=== PATIENT | female | born 1995 | race Caucasian/White ===

== ENCOUNTER 2025-03-08 05:29 | Inpatient (IN) | payer OTHER, SELFPAY ==
[2025-03-08] VITALS (30 sets, daily range): BP systolic 91–127; BP diastolic 50–108; BMI 19.4; BMI 17.2
--- NOTE | 2025-03-08 01:47 | ED.GENMED ---
History of Present Illness
<Sury Avalos PA-C - Last Filed: 03/08/25 06:06>
General
Chief Complaint: Skin Problem
Source: patient
Exam Limitations: none
Time Seen by Provider: 03/08/25 01:46
Nursing documentation reviewed up to this point in time: agreed with
History of Present Illness
History of Present Illness:
29-year-old female with past medical history of hepatitis C, anemia, presents emergency department today with bilateral lower extremity wounds. Patient reports that she uses xylazine daily and reports that she started having wounds in her hips
after she started injecting in her hips the past few months and she now notices increasing pain, yellow drainage, foul smell, and surrounding redness. She states that she has thigh pain with ambulation. She has had these wounds debrided in the
past at [facility] and reports that they are intermittently infected and she has required hospitalizations in the past patient reports that she has had bloodstream infections before. She used to follow with infectious disease doctor at [facility] but
she states that she does not currently follow with them anymore. She denies any fevers or chills. She also notes that she has had periodic episodes of lightheadedness this past week and near syncopal episodes. She denies any chest pain or
shortness of breath.
Review of Systems
<Sury Avalos PA-C - Last Filed: 03/08/25 06:06>
Review of Systems
All Other Systems: ROS reviewed and negative except as documented in HPI and ROS
Phy Exam
<Sury Avalos PA-C - Last Filed: 03/08/25 06:06>
Physical Exam
Physical Exam:
General: Patient is well appearing and in no acute distress; non-toxic
Skin: 5 by 10 cm ulcerated wounds noted to bilateral anterior thighs with purulent drainage and overlying necrotic tissue
Head: Normocephalic, atraumatic
Eyes: Sclera non-icteric. EOMs intact.
Cardiac: Regular rate and rhythm, no murmurs
Peripheral Vascular: No lower extremity swelling or edema, 2+ DP and PT pulses bilaterally
Pulm: Normal respiratory effort, no wheezes, rales, or rhonchi
Abdomen: No abdominal tenderness to palpation
Neuro: CN II-XII intact, no focal neurologic deficits.
Psychiatric: Appropriate mood and affect.
Course
<Sury Avalos PA-C - Last Filed: 03/08/25 06:06>
Orders/Labs/Results
Orders:
Orders
03/08/25 02:04
CR Hips LYNETTE w/wo Pel 3-4 Vw Urgent
Comment:
Reason For Exam: bilateral femoral wounds
Include a pelvis x-ray?: Yes
03/08/25 02:05
0.9% Sodium Chloride 1000 ml [Nss] 1,000 ml IV BOLUS
Ketorolac [Toradol] 15 mg IV NOW STA
03/08/25 03:09
C-Reactive Protein Urgent
Complete Blood Count/With Diff Urgent
Comprehensive Metabolic Panel Urgent
Lactic Acid Urgent
Sed Rate [Erythrocyte Sed Rate] Urgent
Blood Culture Q30M
TISH Source: Blood/Venous
Specimen Description:
03/08/25 03:38
Fentanyl, Urine Urgent
Urine Drug Abuse Screen Urgent
Date Specimen was Collected: 03/08/25
Time Specimen was Collected: 03:22
Wound Culture [Wound/Abscess/Other Culture] Urgent
TISH Source: Ulcer
Specimen Description:
Date Specimen was Collected: 03/08/25
Time Specimen was Collected: 03:36
03/08/25 03:42
* Blood Bank Products Urgent
Blood Bank Products: *Packed RBC Leuko(PRBC's)
Quantity: 1
Transfuse Today: Yes
Reason: Anemia
03/08/25 04:12
Piperacillin/Tazo 3.375 Gram [Zosyn] 3.375 gram in 50 ml IV NOW
03/08/25 04:13
Type+Screen Urgent
Blood Culture Q30M
TISH Source: Blood/Venous
Specimen Description:
03/08/25 04:40
Oxycodone Controlled Release [Oxycontin (Controlled Release)] 40 mg PO NOW STA
03/08/25 04:41
Buprenorphine HCl [Belbuca] 300 mcg BUCCAL BID ONE
03/08/25 04:56
Admit/Transfer Patient As Directed
Co-Sign Provider:
Level of Care: Inpatient admission
Assign to:: Medical/Surgical
Physician / Group: Gil
Diagnosis: Bilateral Thigh Wounds, IV Drug Abuse
Reason for Hospitalization: Bilateral Thigh Wounds, IV Drug Abuse
Expected length of stay greater than two midnights?: Yes
ELOS- Estimated Length of Stay in days: 4
I certify the patient meets the requirements for IP care: Yes
ABO2 Routine
BBK Wristband Number:
Associate notified that ABO2 has been ordered: RADHA
Date: 03/08/25
Time: 04:[address] Clerk ID: [id number]
03/08/25 04:57
PRN Pain Medication Management As Directed
May give lesser potent ordered pain med per pt: Yes
preference::
Protocol:: Medication orders for pain may be administered in a
manner that supports deferring to patient preference
when the pt is:
- Requesting an ordered lesser potent pain medication.
Least to most potent pain medications are defined
as: acetaminophen < NSAID < tramadol < opioids
(morphine, oxycodone, hydromorphone).
- Requesting a lesser dose of the same medication IF
ORDERED.
- Requesting a less intrusive route of administration
if both routes are prescribed by the provider (PO <
IV).
03/08/25 04:58
Code Status As Directed
Resuscitation Status: Full Code
03/08/25 05:20
Vancomycin [Vancocin] 1,500 mg 0.9% Sodium Chloride 500 ml [Nss] 500 ml IV NOW
Abnormal Lab Results
03/08/25 03/08/25 03/08/25
03:09 03:38 04:13
RBC 3.38 L 10^6/uL
(4.20-5.40)
Hgb 6.6 L* g/dL
(12.0-16.0)
Hct 21.6 L %
(37.0-47.0)
MCV 63.9 L fL
(81.0-99.0)
MCH 19.5 L pg
(27.0-31.0)
MCHC 30.6 L g/dL
(33.0-37.0)
RDW 16.9 H %
(11.5-14.5)
Absolute Lymphs (auto) 1.0 L 10^3/uL
(1.2-3.4)
Immature Gran % 0.6 H %
(0-0.5)
Lymphocytes % 16.1 L %
(20.5-51.1)
ESR 92 H mm/hour
(0-20)
Creatinine 0.5 L mg/dL
(0.6-1.0)
Glucose 153 H mg/dl
(70-99)
AST 12 L U/L
(14-36)
C-Reactive Protein 31.70 H mg/L
(0.0-10.00)
Albumin 3.1 L g/dl
(3.5-5.0)
Urine Opiates Screen Positive H
(Negative)
Urine Fentanyl Screen Positive H
(Negative)
Urine Cocaine Screen Positive H
(Negative)
Crossmatch IS Only See Detail
03/08/25 03:09
03/08/25 03:09
Vital Signs
Initial and Last Documented VS:
Initial Vital Signs
Temp Pulse Resp BP Pulse Ox
98.4 F 86 18 108/74 100
03/08/25 01:40 03/08/25 01:40 03/08/25 01:40 03/08/25 01:40 03/08/25 01:40
Last Documented Vital Signs
Temp Pulse Resp BP Pulse Ox
98.4 F 75 20 118/76 100
03/08/25 01:40 03/08/25 04:53 03/08/25 04:53 03/08/25 04:53 03/08/25 04:53
<Chuck Edmond MD - Last Filed: 03/08/25 05:07>
Orders/Labs/Results
Orders:
Orders
03/08/25 02:04
CR Hips LYNETTE w/wo Pel 3-4 Vw Urgent
Comment:
Reason For Exam: bilateral femoral wounds
Include a pelvis x-ray?: Yes
03/08/25 02:05
0.9% Sodium Chloride 1000 ml [Nss] 1,000 ml IV BOLUS
Ketorolac [Toradol] 15 mg IV NOW STA
03/08/25 03:09
C-Reactive Protein Urgent
Complete Blood Count/With Diff Urgent
Comprehensive Metabolic Panel Urgent
Lactic Acid Urgent
Sed Rate [Erythrocyte Sed Rate] Urgent
Blood Culture Q30M
TISH Source: Blood/Venous
Specimen Description:
03/08/25 03:38
Fentanyl, Urine Urgent
Urine Drug Abuse Screen Urgent
Date Specimen was Collected: 03/08/25
Time Specimen was Collected: 03:22
Wound Culture [Wound/Abscess/Other Culture] Urgent
TISH Source: Ulcer
Specimen Description:
Date Specimen was Collected: 03/08/25
Time Specimen was Collected: 03:36
03/08/25 03:42
* Blood Bank Products Urgent
Blood Bank Products: *Packed RBC Leuko(PRBC's)
Quantity: 1
Transfuse Today: Yes
Reason: Anemia
03/08/25 04:12
Piperacillin/Tazo 3.375 Gram [Zosyn] 3.375 gram in 50 ml IV NOW
03/08/25 04:13
Type+Screen Urgent
Blood Culture Q30M
TISH Source: Blood/Venous
Specimen Description:
03/08/25 04:40
Oxycodone Controlled Release [Oxycontin (Controlled Release)] 40 mg PO NOW STA
03/08/25 04:41
Buprenorphine HCl [Belbuca] 300 mcg BUCCAL BID ONE
03/08/25 04:56
Admit/Transfer Patient As Directed
Co-Sign Provider:
Level of Care: Inpatient admission
Assign to:: Medical/Surgical
Physician / Group: Gil
Diagnosis: Bilateral Thigh Wounds, IV Drug Abuse
Reason for Hospitalization: Bilateral Thigh Wounds, IV Drug Abuse
Expected length of stay greater than two midnights?: Yes
ELOS- Estimated Length of Stay in days: 4
I certify the patient meets the requirements for IP care: Yes
ABO2 Routine
BBK Wristband Number:
Associate notified that ABO2 has been ordered: RADHA
Date: 03/08/25
Time: 04:[address] Clerk ID: [id number]
03/08/25 04:57
PRN Pain Medication Management As Directed
May give lesser potent ordered pain med per pt: Yes
preference::
Protocol:: Medication orders for pain may be administered in a
manner that supports deferring to patient preference
when the pt is:
- Requesting an ordered lesser potent pain medication.
Least to most potent pain medications are defined
as: acetaminophen < NSAID < tramadol < opioids
(morphine, oxycodone, hydromorphone).
- Requesting a lesser dose of the same medication IF
ORDERED.
- Requesting a less intrusive route of administration
if both routes are prescribed by the provider (PO <
IV).
03/08/25 04:58
Code Status As Directed
Resuscitation Status: Full Code
03/08/25 05:20
Vancomycin [Vancocin] 1,500 mg 0.9% Sodium Chloride 500 ml [Nss] 500 ml IV NOW
Abnormal Lab Results
03/08/25 03/08/25 03/08/25
03:09 03:38 04:13
RBC 3.38 L 10^6/uL
(4.20-5.40)
Hgb 6.6 L* g/dL
(12.0-16.0)
Hct 21.6 L %
(37.0-47.0)
MCV 63.9 L fL
(81.0-99.0)
MCH 19.5 L pg
(27.0-31.0)
MCHC 30.6 L g/dL
(33.0-37.0)
RDW 16.9 H %
(11.5-14.5)
Absolute Lymphs (auto) 1.0 L 10^3/uL
(1.2-3.4)
Immature Gran % 0.6 H %
(0-0.5)
Lymphocytes % 16.1 L %
(20.5-51.1)
ESR 92 H mm/hour
(0-20)
Creatinine 0.5 L mg/dL
(0.6-1.0)
Glucose 153 H mg/dl
(70-99)
AST 12 L U/L
(14-36)
C-Reactive Protein 31.70 H mg/L
(0.0-10.00)
Albumin 3.1 L g/dl
(3.5-5.0)
Urine Opiates Screen Positive H
(Negative)
Urine Fentanyl Screen Positive H
(Negative)
Urine Cocaine Screen Positive H
(Negative)
Crossmatch IS Only See Detail
03/08/25 03:09
03/08/25 03:09
Vital Signs
Initial and Last Documented VS:
Initial Vital Signs
Temp Pulse Resp BP Pulse Ox
98.4 F 86 18 108/74 100
03/08/25 01:40 03/08/25 01:40 03/08/25 01:40 03/08/25 01:40 03/08/25 01:40
Last Documented Vital Signs
Temp Pulse Resp BP Pulse Ox
98.4 F 75 20 118/76 100
03/08/25 01:40 03/08/25 04:53 03/08/25 04:53 03/08/25 04:53 03/08/25 04:53
<Sury Avalos PA-C - Last Filed: 03/08/25 06:06>
MDM/Problems Addressed
Differential Diagnosis Includes:
ddx include infected ulcer, osteomyelitis, abrasion/laceration
MDM/Problems Addressed:
29-year-old female with past medical history of hepatitis C, anemia, presents emergency department today with bilateral lower extremity wounds. Patient reports that she uses xylazine daily and reports that she started having wounds in her hips
after she started injecting in her hips the past few months and she now notices increasing pain, yellow drainage, foul smell, and surrounding redness. She uses fentanyl as well. On exam, she has very large ulcerated wounds with active purulent
drainage no fever. She has acute anemia hemoglobin 6.6 will initiate transfusion, patient has history of transfusions for anemia in the past, will admit for IV antibiotics, may require surgical debridement, Vanco and Zosyn initiated
<EDER Camarena Last Filed: 03/08/25 06:06>
*Pulse Oximetry
Patient hypoxic: no
*Critical Care Note
Total Time (30-74mins, 75-104mins- exclusive of procedures): Not Applicable
Data Reviewed
Review of Other/Old Records Reveals: Records
<Sury Avalos PA-C - Last Filed: 03/08/25 06:06>
Update Note
Update Note:
Update patient is hemoglobin 6.6, discussed findings with patient, she does have a history of anemia and has required blood transfusions in the past, patient denies any bleeding, she is unsure of her baseline hemoglobin
ED Attending Note
<Sury Avalos PA-C - Last Filed: 03/08/25 06:06>
-
Portions of this chart may have been created with voice recognition software.� Occasional wrong word or��sound alike� substitutions may have occurred due to the inherent limitations of voice recognition software.
<Chuck Edmond MD - Last Filed: 03/08/25 05:07>
ED Attending Note
Patient seen and examined by attending physician: Yes
ED Attending Note:
Patient with history of IVDA and infected skin ulcer requiring multiple debridement secondary to use of xylazine, presents to ED secondary to worsening wound over bilateral thigh, which has been ongoing for over 1 year. Denies fever or chills.
Denies nausea or vomiting. Denies loss of appetite. Patient has had previous wound in her arms as well as lower legs, requiring debridement.
Physical Exam
General: mild distress, not acutely ill. afebrile
Head: nc/at. eomi
Neck: supple. no meningeal signs
Abdomen: normal bowel sounds. not tender.
Neuro: alert and oriented x 3. no focal neurological deficits
Skin: an approx 5 cm x 10 cm open ulcer noted over b/l anterior thigh with minimal foul smelling drainage, without surrounding erythema
Psychiatric: well kept. interactive and cooperative
Extremities: no edema. no calf tenderness.
History and exam concerning for significant soft tissue injury, secondary to chronic xylazine use, with great concern for superimposed infection. Patient will be admitted for IV antibiotics, but may require surgical wound debridement. In addition,
patient found to be anemic. In light of recent episode of dizziness, patient will be given blood transfusion.
Transfusion consent on the chart
Discharge Plan
Departure
Patient Disposition: Admit
Date of Disposition: 03/08/25
Time of Disposition: 04:21
Admit to: Med/Surg
Presentation/result/management discussed w/ accepting MD/DO: Hospitalist
Patient with high blood pressure during this ER visit?: No
Condition: Fair
Discharge Problem:
Infected ulcer of skin, Intravenous drug abuse
Interventions
Interventions:
*Risk Screen - Suicide Last Done: 03/08/25 01:40
*General Assessment Last Done: 03/08/25 02:56
*Neglect/Abuse Screening Last Done: 03/08/25 01:40
*ED- Fall Risk Assessment Last Done: 03/08/25 02:56
*ED COVID-19 Vaccine History Last Done: 03/08/25 02:56
ED-Musculoskeletal Assessment Last Done: 03/08/25 02:59
ED-Skin Assessment Last Done: 03/08/25 03:16
[2025-03-08 03:30] LABS: % Basophils 0.6 % (0-2); % Eosinophils 2.8 % (0-6); % Immature Granulocytes 0.6 % (0-0.5); % Lymphocytes 16.1 % (20.5-51.1); % Monocytes 7.5 % (1.7-9.3); % Neutrophils 72.4 % (42.2-75.2); Absolute Eosinophils 0.2 10^3/uL (0-0.7); Absolute Monocytes 0.5 10^3/uL (0.1-0.6); Absolute Neutrophils 4.6 10^3/uL (1.4-6.5); Hematocrit 21.6 % (37.0-47.0); Hemoglobin 6.6 g/dL (12.0-16.0); Mean Corp Hgb Conc. 30.6 g/dL (33.0-37.0); Mean Corpuscular Hgb 19.5 pg (27.0-31.0); Mean Corpuscular Volume 63.9 fL (81.0-99.0); Mean Platelet Volume 9.3 fL (7.4-10.4); Nucleated Red Blood Cells % 0 %; Platelet Count 344 10^3/uL (130-400); Red Blood Cell Count 3.38 10^6/uL (4.20-5.40); Red Cell Dist. Width 16.9 % (11.5-14.5); White Blood Cell Count 6.4 10^3/uL (4.8-10.8)
[2025-03-08 03:34] LABS: Lactic Acid 1.2 mmol/L (0.7-2.0)
[2025-03-08 03:39] LABS: Erythrocyte Sed Rate 92 mm/hour (0-20)
[2025-03-08 04:04] LABS: ALT (SGPT) < 10 U/L (0-35); AST (SGOT) 12 U/L (14-36); Albumin 3.1 g/dl (3.5-5.0); Alkaline Phosphatase 91 U/L (38-126); Blood Urea Nitrogen 10 mg/dl (7-17); Calcium 8.4 mg/dl (8.4-10.2); Carbon Dioxide 29 mmol/L (22-30); Chloride 101 mmol/L (98-107); Estimated Creatinine Clearance 113 ml/min; Glucose 153 mg/dl (70-99); Potassium 4.4 mmol/L (3.5-5.1); Sodium 136 mmol/L (135-145); Total Bilirubin 0.4 mg/dl (0.2-1.3); Total Protein 7.1 g/dl (6.3-8.2); eGFR > 60.00
[2025-03-08] MEDS: NSS 1000 IV (04:31)
[2025-03-08 04:45] LABS: Amphetamines Negative (Negative); Barbiturates Negative (Negative); Benzodiazepines Negative (Negative); Buprenorphine Negative (Negative); Cocaine Positive (Negative); Opiates Positive (Negative)
[2025-03-08 04:46] LABS: Marijuana Negative (Negative); Methadone Negative (Negative); Methamphetamines Negative (Negative); Phencyclidine Negative (Negative); Tricyclic Antidepressants Negative (Negative)
[2025-03-08] MEDS: ZOSYN 50 IV ×3 (04:50→20:08)
[2025-03-08] MEDS: OXYCONTIN (CONTROLLED RELEASE) 40 MG PO ×2 (04:51→17:32)
[2025-03-08 05:02] LABS: Fentanyl, Urine Positive (Negative)
--- NOTE | 2025-03-08 05:04 | HPS.HSE ---
Family Physician
-
Family Physician: NOT KNOW UNKNOWN - PT DOES
Chief Complaint
-
Bilateral Thigh / Groin Wounds
History of Present Illness
Patient is a 29y F with PMH significant for IVDA, chronic wounds and chronic anemia who presents to ED complaining of increased drainage / pain in bilateral thigh wounds. Patient reports long history of skin wounds related to xylazine (fentanyl)
use. She has previously been seen at [facility], [facility] and [facility]. She underwent I&D of wounds to the bilateral elbows and the L lower leg at [facility]. These wounds have healed / are healing nicely. Patient developed wounds to the proximal thigh / groin areas at
the same time. These areas were not debrided. She has been hospitalized multiple times for IV abx and wound care. She is typically lost to follow-up after hospitalization and does not have ongoing structured wound care.
She was last hospitalized for her wounds in January at [facility].
Patient presents today complaining of increased pain and increased bleeding / purulent drainage from the thigh wounds.
She also notes occasional lightheadedness and fatigue.
She has not noted any significant bleeding other than from the thigh wounds. Normal menses cycle without heavy or prolonged menses. No blood in stool or urine appreciated.
Patient reports diagnosis of iron deficiency anemia - but she is not certain why.
She has required transfusions multiple times in the past.
Patient notes that she continues to use IV drugs on a daily basis. She last used 5/4 in the afternoon.
At the time of my examination, patient is resting comfortably and is in no acute distress.
Medical History
Past Medical History
Past Medical History: Reports Other
Additional Past Medical History:
Multiple Wounds related to IV drug use
Hepatitis C (no prior treatment)
Iron Deficiency Anemia
Past Surgical History: Reports Other
Additional Past Surgical History:
Wound Debridement
T&A
Social History
Tobacco: Smoker (Current every day smoker. / ppd.)
Alcohol: Occasional
Drug: Other (IV fentanyl - 1 bundle daily. IV cocaine - 5 bags daily. Last use 03/07 afternoon.)
Family History
Family History: Other (Father: Esophageal Cancer MGM: Breast Cancer)
Allergies / Home Medications
Allergies reflects when Allergies were last updated in [facility].
Home Medications with original date entered in [facility]
Allergy/Medication List:
Allergies
Allergy/AdvReac Type Severity Reaction Status Date / Time
No Known Allergies Allergy Verified 03/08/25 01:42
Home Medications
No Meds [No Current Medications] 03/08/25
Review of Systems
-
History Source: Patient
A 12 point ROS was completed and negative except as noted: Yes
Constitutional: Reports Fatigue; Denies Fever or Chills
EENT: Denies Sore Throat
Respiratory: Denies Cough or Trouble Breathing
Cardiac: Denies Chest Pain or Palpitations
Abdomen/GI: Denies Abdominal Pain, Nausea, Vomiting or Diarrhea
: Denies Dysuria or Frequency
Musculoskeletal: Denies Joint Pain or Edema
Skin: Reports Other (bilateral thigh/ groin wounds - bleeding / discharge)
Psych: Denies Depression or Anxiety
Physical Exam
Vital Signs
Vital Signs
Temp Pulse Resp BP Pulse Ox
98.4 F 75 20 118/76 100
03/08/25 01:40 03/08/25 04:53 03/08/25 04:53 03/08/25 04:53 03/08/25 04:53
Physical Exam
General: Other (29y F chronically ill-appearing.)
HEENT: Other (Dry MM. Poor dentition.)
Respiratory: Clear; No Wheezes, Rales or Rhonchi
Cardiac: S1/S2 and Regular Rhythm; No Murmur
GI: Soft, Non Tender, Non Distended and Normal Bowel Sounds
Musculoskeletal: No Clubbing, No Cyanosis and No Edema
Skin: Other (L > R anterior thigh wounds / ulcerations with exposed fat, spotting / bleeding and areas of purulence. Mild surrounding erythema. Superficial ulcer over the lateral aspect of the L lower leg. Scarring L lower leg and bilateral
elbows.)
Neuro: AO x 3
Laboratory Results
-
03/08/25 03:09
03/08/25 03:09
Laboratory Results
Lactic Acid 1.2 mmol/L (0.7-2.0) 03/08/25 03:09
Total Bilirubin 0.4 mg/dl (0.2-1.3) 03/08/25 03:09
AST 12 U/L (14-36) L 03/08/25 03:09
ALT < 10 U/L (0-35) 03/08/25 03:09
Alkaline Phosphatase 91 U/L (38-126) 03/08/25 03:09
Impression/Plan
-
A/P: Patient is a 29y F with PMH significant for IVDA, Hep C and anemia who presents to ED complaining of worsening bilateral thigh wounds.
Non-Healing Wounds Bilateral Anterior Thighs / Groin
Infected Wounds / Cellulitis
- Admit for further evaluation and treatment.
- Initial wounds secondary to xylazine injection. No prior I&D of thigh wounds.
- IV abx.
- Surgery / Wound Care evaluations for local care and possible debridement.
- Follow for clinical improvement.
Severe Microcytic Anemia
- Hgb = 6.6 with no prior for comparison.
- Markedly microcytic with MCV = 63.9.
- Patient denies any significant blood loss.
- Receiving PRBCs in the ED. Follow for changes in H&H.
- Check iron studies and consider IV replacement of iron stores if indicated.
IVDA
Opioid Use Disorder
Polysubstance Use Disorder
- Daily IV use of both fentanyl and cocaine is ongoing. Last used the afternoon prior to admission.
- Opioid withdrawal microdosing protocol ordered.
- Supportive care.
- Follow for active symptoms of withdrawal.
- Patient would benefit from inpatient rehab program if she is amenable.
Hep C
- No prior treatment of Hep C positivity.
- Update HIV status.
- Patient has been instructed to follow-up as an outpatient for Hep C treatment - but has yet to do so.
DVT Prophylaxis: SCDs
Code Status: Full
[2025-03-08] MEDS: BELBUCA 300 MCG BUCCAL ×4 (05:07→22:31)
[2025-03-08] MEDS: VANCOCIN 530 MG IV ×2 (05:28→05:30)
--- NOTE | 2025-03-08 07:55 | W.PN.HOSP.TC ---
Addendum entered and electronically signed by Yessy Hernandez MD 03/08/25 16:00:
I saw and evaluated the patient. I reviewed the resident�s note and agree with findings and plan as documented in the resident�s note except for changes in my documentation
29-year-old female with IV drug abuse presented with increased drainage of bilateral thigh wounds she was previously seen at [facility] in [place] and underwent IND of bilateral elbows, bilateral lower leg wounds. Last hospitalized
at [facility] in January has a history of iron deficiency anemia with history of blood transfusions in the past. Last use of drugs was on 03/07/2025 afternoon.
Nonhealing wounds with some necrosis and sloughing on both thighs
Scars on both forearms as well as left leg-healing
Cardiovascular system S1-S2 appreciated, no murmur
Abdomen soft and nontender
# Nonhealing bilateral anterior thigh wounds
Infection
Initial wounds secondary to xylazine injection
Surgery and wound care evaluation
Blood cultures pending
Wound culture pending
Continue IV antibiotics
ID evaluation
# Severe microcytic anemia
Received PRBCs in the ER
Check iron studies
Needs GI and SOCIAL SECRETARY workup as outpatient
# IV drug abuse
Polysubstance abuse disorder and opiate use disorder
Urine drug screen positive for opiates, fentanyl, cocaine
Uses both fentanyl and cocaine last use was on 03/07/2025
Opiate withdrawal-micro dosing protocol, as needed Zanaflex, clonidine, Subutex, Atarax as needed reviewed, Ativan as needed, oxycodone as needed with OxyContin controlled-release
Warm handoff consult
# Hepatitis C-instructed to seek outpatient treatment
Check HIV status
# Active smoker-cessation counseling
# DVT prophylaxis-SCDs
# Full code
Detailed counseling about stopping drugs. Patient is willing for B cares consult
Part of this note was created using voice recognition system. Occasional wrong word or��sound alike� substitutions may have inadvertently occurred due to the inherent limitations of voice recognition software. If noted kindly bring it to my
attention for correction.
Original Note:
Today's Communication/Plan
-
- COWS protocol
- microdosing protocol
Assessment / Plan
Assessment / Plan
Assessment:
29yo F [facility] IVDU, hep C, iron deficiency anemia presented to [facility] ED w b/l LE wounds. Uses xylazine daily, last used 5/ in the afternoon. Wounds on hips after injecting over hips with increasing pain, yellow drainage, foul smell and surrounding
redness.
Plan:
Non-healing wounds b/l ant thighs/groin
Infected wounds/cellulitis secondary to xylazine injections
- appreciate surgery input for possible debridement and woundcare input for f/u
- IV abx
- follow for improvement
Severe microcytic iron deficiency anemia
- transfused 1 unit pRBCs
- pt denies bleeding
- iron panel - low ferritin, low serum iron, low %sat, normal TIBC, RDW high
- transfuse as needed to keep Hb>7
IVDA
Opioid Use Disorder
Polysubstance Use Disorder
Active smoker
- uds positive for fentanyl, opioids, cocaine, xylazine
- reports daily use of fentanyl and cocaine. Last used / afternoon
- COWS, microdosing protocol
- nicotine patch
- would benefit from inpatient rehab
Hepatitis C
- No prior treatment
- HIV status pending
- will need to f/u outpt
Diet: regular
DVT Prophylaxis: SCDs
Code Status: Full
Anticipated Discharge: > 48 hours
Subjective/Interval History
-
Date of Service: March 08, 2025
29yo F [facility] IVDU, hep C, iron deficiency anemia presented to [facility] ED w b/l LE wounds. Uses xylazine daily, last used 5/ in the afternoon. Wounds on hips after injecting over hips with increasing pain, yellow drainage, foul smell and surrounding
redness. Wounds have been debrided in the past at [facility], pt reports they are intermittently infected, often requiring hospitalizations. Hx bacteremia. Used to follow w ID at [facility], but not currently following. +lightheadedness, +presyncopal episodes,
-CP, -dyspnea. Transfused 1u pRBCs overnight. Starting to feel chills and myalgias.
Objective Data
-
Labs:
Laboratory Results
03/08/25
03:09
WBC 6.4
Hgb 6.6 L*
Hct 21.6 L
Plt Count 344
Sodium 136
Potassium 4.4
Chloride 101
Carbon Dioxide 29
BUN 10
Creatinine 0.5 L
Glucose 153 H
Calcium 8.4
Total Bilirubin 0.4
AST 12 L
ALT < 10
Alkaline Phosphatase 91
Vital Signs:
Vital Signs
Temp Pulse Resp BP Pulse Ox
98.4 F 64 16 108/65 99
03/08/25 01:40 03/08/25 07:23 03/08/25 07:23 03/08/25 07:23 03/08/25 07:23
Review of Systems
-
History Source: Patient
Constitutional: Reports Chills
Respiratory: Reports No Symptoms
Cardiac: Reports No Symptoms
Abdomen/GI: Reports No Symptoms
Genitourinary: Reports No Symptoms
Musculoskeletal: Reports Myalgias
Skin: Reports Sores
Neuro: Reports No Symptoms
Hematologic / Lymphatic: Reports No Symptoms
Physical Exam
-
General: Appears in Distress, Chills, Conversant and Cachectic
HEENT: Normocephalic, Atraumatic, Moist Mucous Membranes and Anicteric
Respiratory: Clear to Auscultation
Cardiac: Regular Rhythm and S1/S2
GI: Soft, Nontender, Nondistended and Normal Bowel Sounds
Musculoskeletal: No Clubbing, No Cyanosis and No Edema
Skin: Warm, Dry, Ulcers and Jaundice
Neuro: AO x 3 and No Motor Deficits
Psych: Calm and Intact Judgement/Insight
[2025-03-08] MEDS: ROXICODONE 20 MG PO ×3 (10:50→20:23)
--- NOTE | 2025-03-08 11:19 | PHA.VAN.IN ---
Assessment
- Assessment
Renal Function: Appears similar to baseline
Concomitant Antimicrobials: piperacillin/tazobactam
AUC Dosing Plan
- Dosing Variables
Dosing Weight (kg): 57 (IBW since BMI < 20)
Dosing CrCl (ml/min): 113 - 122
Vd coefficient (L/kg): 0.7
Utilized CrCl range calculated with TBW & IBW
- Empiric Dosing
Initial / Loading Dose: 1500mg - 5/5 05:30
Maintenance Regimen: Vanc 1000mg Q12H
Estimated AUC (mcg*h/mL): 499 - 536
Estimated Peak (mcg*h/mL): 34.9 - 36.2
Estimated Trough (mcg/ml): 10.9 - 12.3
Estimated Half Life (H): 6.6 - 7.1
- Monitoring
No levels ordered at this time: consider levels in next few days
Pharmacokinetics Vancomycin I
- -
Patient Age: 29
Patient Sex: Female
Vancomycin Day #: 1
Indication: Skin And Soft Tissue
Requesting Provider: Dr. Cordero
Pertinent Antimicrobial Allergies:
NKDA
Height / Weight:
Height 5 ft 5 in
Actual Weight 52.8 kg
IBW in k
Pertinent Past Medical History: BMI ~19.4, IV CRISTA
- Vital Signs / Lab Results
Temp Pulse Resp BP Pulse Ox
97.6 F 72 16 110/72 97
03/08/25 10:41 03/08/25 10:41 03/08/25 10:41 03/08/25 10:41 03/08/25 10:41
Lab Results - Hematology
03/08/25
03:09
WBC 6.4
Lab Results - Chemistry
03/08/25
03:09
BUN 10
Creatinine 0.5 L
Estimated Creat Clear 113
Albumin 3.1 L
03/08/25
03:09
Lactic Acid 1.2
Microbiology Results
03/08/25 03:38 Gram Stain - Preliminary
Ulcer
--- NOTE | 2025-03-08 11:33 | CON.GS ---
Addendum entered and electronically signed by Brad Zhang MD 03/08/25 16:11:
I saw and examined the patient independently.
The resident's documentation was reviewed and I agree with the note, assessment and plan except where noted below.
Comment: This is a 29-year-old female with a history significant for IV drug abuse, hepatitis C, chronic wounds from subcutaneous Tranq/xylazine injections in her upper thighs with chronic bilateral wounds here for pain in said wounds and reported
intermittent purulent discharge. She states that she last used/injected into these wounds yesterday. The patient denies Fever, Chest Pain, Shortness Of Breath, Nausea, Vomiting or altered mental status from baseline.
No abscess or necrotic tissue noted, no significant purulent discharge noted either however given reported history recommend starting with quarter strength Dakin's wet to dry twice daily
IV antibiotics per primary.
Wound care consults for management.
No acute surgical intervention warranted at this time, happy to follow-up with her as an outpatient.
Surgery will sign off, please call with any questions or concerns.
Original Note:
Consultation
-
Date/Time Consultation Requested: 03/08/2025 9:49 AM
Date/Time Consultation Performed: 03/08/2025 11:30 AM
Requesting Provider: Nestor Swift
Performing Provider: Brad Belcher
Reason for Consultation: Infected ulcer of skin
Medical History
-
Chief Complaint: Infected ulcer of skin
History of Present Illness:
Patient is a 29-year-old female with a past medical history significant for IV drug usage, hepatitis C, chronic wounds, chronic anemia who presents for drainage of purulent/bloody discharge from bilateral chronic upper thigh wounds. The wounds on
her thighs started 1 year ago and have progressively grown over time, associated with foul smell and erythema, she has gotten debridement for these wounds before at [facility]. No fevers or chills chills. She has been injecting IV near the
wounds. Patient has long history of fentanyl use and history of skin wounds. She has been seen in multiple hospitals before to undergo incision and drainage of wounds to the bilateral elbows and left lower leg ( which have healed well with
scarring present). Has had multiple hospitalizations for wound care with the last visit in January. Typically does not follow-up after hospitalization. She last used on 03/07/2025.
Past Medical History
Past Medical History: Other (Anemia, hepatitis C, IV drug usage)
Social History
Tobacco: Smoker (Half a pack per day)
Alcohol: Occasional
Drug: IVDA (Fentanyl 1 bundle daily, IV cocaine 5 bags daily)
Family History
Family History: Reviewed & Not Pertinent
Allergies / Home Medications
Allergy/AdvReac Type Severity Reaction Status Date / Time
No Known Allergies Allergy Verified 03/08/25 01:42
�Medication �Instructions �Recorded �Confirmed �Type
No Meds [No Current Medications] 03/08/25 03/08/25 History
Review of Systems
-
History Source: Patient
All other systems: Negative unless noted
Skin: Other (Bilateral thigh/groin wounds purulent/bloody discharge)
A 10 point review of systems was completed, and was negative except as per HPI.
Physical Exam
Vital Signs
Temp Pulse Resp BP Pulse Ox
97.6 F 72 16 110/72 97
03/08/25 10:41 03/08/25 10:41 03/08/25 10:41 03/08/25 10:41 03/08/25 10:41
03/07/25 03/08/25 03/09/25
06:59 06:59 06:59
Actual Weight 52.8 kg
Body Mass Index (BMI) 19.4
Lab Results
03/08/25 03:09
03/08/25 03:09
WBC 6.4 10^3/uL (4.8-10.8) 03/08/25 03:09
Hgb 6.6 g/dL (12.0-16.0) L* 03/08/25 03:09
Hct 21.6 % (37.0-47.0) L 03/08/25 03:09
Plt Count 344 10^3/uL (130-400) 03/08/25 03:09
Abs Immat Gran (auto) 0.0 10^3/uL (0-0.05) 03/08/25 03:09
Neutrophils % 72.4 % (42.2-75.2) 03/08/25 03:09
Physical Exam
General: Other (Appears chronically ill)
Respiratory: Clear; Negative Wheezes, Rales or Rhonchi
Cardiac: S1/S2 and Regular Rhythm; Negative Murmur
GI: Soft, Non Tender, Non Distended and Normal Bowel Sounds
Musculoskeletal: No Clubbing, No Cyanosis and No Edema
Skin: Other (Bilateral (left larger than right) thigh/groin ulcerations with irregular necrotic margins, no signs of drainage, no subcutaneous tissue exposed, with slough. Scarring present on left lower extremity and b/l elbows from previous
incision and drainage.)
Neuro: Awake, Alert, Oriented and AO x 3
Data Reviewed
-
Labs: Labs Reviewed by me and Discussed with Physician
Assessment / Plan
-
Bilateral exposed chronic wounds of the thigh/groin
Secondary to xylazine/fentanyl usage:
-Inspection of the open wound shows no drainage/foul odor/ no signs of acute infection
-Pack wounds with Santyl ointment, daily dressing changes, no indications for surgery at this time
-Continue IV Zosyn
- Wound/ blood cultures still pending
- Infectious disease consulted
-Monitor for signs of infection such as fever, purulence, increasing erythema
- labs- CBC, CMP, ESR/CRP
IV Opioid use disorder
Cocaine usage:
- As per primary team
Microcytic anemia:
- hgb is 6.6, and MCV is 63.9
- Patient is being transfused with 1 unit of PRBC in ED
- No fatigue, palpitations, syncope
- Continue to monitor hgb
- Check iron studies
Hepatitis C:
- Patient has never received prior treatment for Hep C infection
- HIV screening confirmation ordered
- Patient is yet to follow up on hepatitis C outpatient follow up
[2025-03-08 11:36] LABS: Ferritin 9.5 ng/ml (6.24-137)
[2025-03-08 11:50] LABS: Vitamin B12 710 pg/ml (239-931)
[2025-03-08 12:05] LABS: Iron 30 ug/dl (37-170)
[2025-03-08 12:15] LABS: Percent Saturation 8 % (20-50); Total Iron Binding Capacity 338 ug/dl (265-497)
--- NOTE | 2025-03-08 12:15 | EDRN ---
Unit #2 of pRBC (Unit # [id number]) started at this time.
[2025-03-08] MEDS: NICODERM TRANSDERMAL 14 MG TRANSDERM (12:59)
--- NOTE | 2025-03-08 14:00 | EDRN ---
I just TT'd Dr. Hernandez about giving pain med prior to Dakin dressing placement. She said to do roxicodone though not yet due so requested an order for it at this time. I informed Kenia the wound ostomy nurse.
--- NOTE | 2025-03-08 14:29 | EDRN ---
Kenia Cortez RN WON was down and did initial dressing. Santiago's was not here in ED so she performed a saline wet to dry dressing saying the Dakin's dressing can start tomorrow if dressing does not fall off or get soiled.
--- NOTE | 2025-03-08 14:31 | WOUNDNOTE ---
L LATERAL LOWER LEG
--- NOTE | 2025-03-08 14:32 | WOUNDNOTE ---
R GROIN/UPPER THIGH
--- NOTE | 2025-03-08 14:33 | WOUNDNOTE ---
L GROIN UPPER THIGH
--- NOTE | 2025-03-08 14:34 | WOUNDNOTE ---
[facility] RN note: Patient admitted with infected ulcers related to IVDA of Xylazine.
See H&P for complete history. Lives with partner.
PMH: Hepatitis C, IVDA of Xylazine, Fentanyl and Cocaine. 1/2PPD smoker.
Wound Location and type/assessment: Patient admitted with: Full thickness foul smelling ulcers b/l groin/thigh from IVDA. L lateral leg with healing ulcer mainly pink, no odor, from IVDA. Patient confirmed she has been to drug rehab in past and
plans to go back. Patient states she no longer goes to [facility]. Has scarring on legs and R dorsal foot from previous IV drug sites.
Appetite: Poor, encouraged protein in diet, did not touch lunch.
Pressure redistribution devices in place: on stretcher, can be on Accumax.
Plan: Spoke with Dr. Maldonado this morning after he saw patient. Santiago's WTD dressings ordered per Dr. Maldonado.
Teaching done with patient regarding reason for wounds and strongly encouraged to seek drug rehab.
Updated nurse Santiago Lakhani's not received from pharmacy yet, nursing can apply next time due.
Updated care plan and will follow as needed.
Note to case management of equipment requested for discharge: VN if patient unable to care for wounds.
Recommend follow up at wound care center upon discharge.
--- NOTE | 2025-03-08 15:42 | CON.ID ---
Addendum entered and electronically signed by Genevieve Bravo MD 03/08/25 20:18:
I personally performed a history and physical exam of the patient and discussed management with the resident. I reviewed the resident's note and agree with the documented findings and plan of care HPI/CC with the following additions/corrections:
Ms King is a 29 year old female with history notable for IVDA with secondary chronic wounds related to xylazine, hep C without previous treatment, She underwent I&D of wounds to the bilateral elbows and the L lower leg at [facility] which are healing,
however now with new wounds on the proximal thigh. She is generally not compliant with referrals for outpatient woudn care. Then today she noted increased bleeding and purulent drainage from the thigh wounds. IVDU is ongoing, last use 03/07.
States she's interested in rehab and vaguley references children. Reports that she has not been paid for sex and is in a monogamous relationship. No current ulcers or drips. No history of STIs.
She was advised that she required a 6 week course of IV antibiotics during her last evaluation at [place] while she was bacteremic; she left against medical advise at 2 weeks, reports she doesnt think her bones or heart valves were infected; we
have requested records to clarify.
Since arrival here she has been afebrile, bp overall stable, labs notable for normal WBC at 6.4, hgb 6.6, plt 344, na 136, cr 0.5, crp 32, xray of the hips no evidence of osteomyelitis, HIV screen in progress, beta HCG not yet checked, blood
cultures x2 in progress, wound culture with many GNR and few GPCs, she is currently on vancomycin and zosyn. ID is consulted for assistance with management.
Social history notable for IV fentanyl - 1 bundle daily. IV cocaine - 5 bags daily. Last use 03/07 afternoon
beta HCG negative
A&P
Wound Infection
Ongoing IVDU
H/o untreated Hep C
Noncompliance
- wound culture in progress
- blood cultures x2 in progress
- HIV screen is pending
- patient would need to abstain for at least 6 months from drug use to be a candidate for hep C treatment, ongoing IVDU is a high risk for reinfection - reports she has a doctor who treats hep C that she can follow up with
- QTc is wnl
- no evidence of osteomyelitis on the bilateral xrays
- obtain records from [place] given that she was recommended for a long course of antibiotics which was not completed
- wound care per wound campground caretaker
- appreciate surgical input
- agree with vancomycin and zosyn for present
- patient is at risk of reinfection/relapse/progression particularly is she continues to use IV drugs which she reports she is well aware of.
follow clinically
Original Note:
Consultation
-
Date/Time Consultation Requested: 03/08/2025 9:49
Date/Time Consultation Performed: 03/08/2025 15:45
Requesting Provider: Yessy Hernandez MD
Performing Provider: Genevieve Bravo MD
Reason for Consultation: IVDA and wounds
Chief Complaint / Past History
Chief Complaint
Nonhealing skin ulcers
History of Present Illness
Ms King is a 29 year-old female with PMH of IV drug abuse, hep C, [place] with history of multiple blood transfusions in the past who presented to ED on 03/08/2025 with increasing pain, intermittent bleeding, purulent drainage of bilateral thigh
wounds from xylazine injection. She reports long history of skin wounds from xylazine (fentanyl) injections with nonhealing bilateral anterior thigh wounds which started as wounds in her hips for the past few months. Patient uses IV drug daily,
last use 03/07 afternoon. She was treated in [facility] November 2023 and hospitalized at [place] and [facility] in December and January 2025 respectively. Her last I and D of bilateral elbow wounds left lower leg wounds was at [facility] but
canceled her visiting nurse in between treatment. She was requested to stay for 6 weeks in [place] but left after 2 weeks of treatment. She follows with ID at [facility] but have not seen them in a while. She has also had multiple
hospitalizations with IV antibiotics and wound care and was last hospitalized at [facility] in January. She endorses occasional lightheadedness and fatigue but denies fever, chills, diarrhea, chest pain, shortness of breath, hypotension, abdominal pain,
nausea or vomiting.
Past History
Past Medical History: Other
Additional Past Medical History:
Multiple Wounds related to IV drug use
Hepatitis C (no prior treatment)
Iron Deficiency Anemia
Past Surgical History: Other (Wound debridement)
Allergy History:
No Known Allergies Allergy (Verified 03/08/25 01:42)
Medications Reviewed: Yes
Social History
Tobacco: Smoker (Half pack per day)
Alcohol: Occasional
Drug: IVDA (Daily bundle IV fentanyl, IV cocaine 5 bags daily)
Family History
Family History: Other (Father: Esophageal Cancer maternal grandmother: Breast Cancer)
Review of Systems
Review of Systems
General: Negative Fever or Chills
HEENT: Negative Lymphadenopathy
Cardiovascular: Negative Chest Pain or Edema
Respiratory: Negative Dyspnea
Gasteroenterology: Negative Nausea, Vomiting or Diarrhea
Hematologic: Impaired Wound Healing
Endocrine: Fatigue
Musculoskeletal: Negative Joint Pain or Joint Swelling
Skin / Hair / Nails: Other (Bilateral thigh ulcers L >R with discharge and occasional bleeding)
Neurological: Negative Headache
All systems: All other systems were reviewed and were negative
Vital Signs
Temp Pulse Resp BP Pulse Ox
98.1 F 74 18 91/60 98
03/08/25 15:30 03/08/25 15:30 03/08/25 15:30 03/08/25 15:30 03/08/25 15:30
Physical Exam
Physical Exam
Constitutional: No Acute Distress, Comfortable and Non-toxic
Eyes: Pupils Equal and No Conjunctival Hemorrhage
Oral: Poor Dentition
Cardiovascular: Regular Rate and S1/S2
Pulmonary: Clear
Gastrointestinal: Soft, Non Tender, Distended and Normal Bowel Sounds
Extremities: Negative Edema, Splinter Hemorrhage or Calf Swelling
Musculoskeletal: Negative Joint Swelling or Joint Effusion
Skin: Warm, Dry and Other (Bilateral elbow scars, purulent anterior thigh wounds/ulcerations L >R)
Wound: Other (Bilateral anterior thigh wounds/ulcer L >R, anterior left diamond ulcer)
Neurological: Awake and AO x 3
Psychological: Calm
Lab / Diagnostic Study Results
03/08/25 03:09
Abs Immat Gran (auto) 0.0 10^3/uL (0-0.05) 03/08/25 03:09
Absolute Neuts (auto) 4.6 10^3/uL (1.4-6.5) 03/08/25 03:09
Absolute Lymphs (auto) 1.0 10^3/uL (1.2-3.4) L 03/08/25 03:09
Absolute Monos (auto) 0.5 10^3/uL (0.1-0.6) 03/08/25 03:09
Absolute Basos (auto) 0.0 10^3/uL (0-0.2) 03/08/25 03:09
Immature Gran % 0.6 % (0-0.5) H 03/08/25 03:09
Neutrophils % 72.4 % (42.2-75.2) 03/08/25 03:09
Lymphocytes % 16.1 % (20.5-51.1) L 03/08/25 03:09
Monocytes % 7.5 % (1.7-9.3) 03/08/25 03:09
Eosinophils % 2.8 % (0-6) 03/08/25 03:09
Basophils % 0.6 % (0-2) 03/08/25 03:09
ESR 92 mm/hour (0-20) H 03/08/25 03:09
Lactic Acid 1.2 mmol/L (0.7-2.0) 03/08/25 03:09
C-Reactive Protein 31.70 mg/L (0.0-10.00) H 03/08/25 03:09
Microbiology Results
Micro:
03/08/25 03:38 Wound Culture - Pending
Ulcer Gram Stain - Preliminary
03/08/25 03:09 Blood Culture - Pending
Blood/Venous
03/08/25 04:13 Blood Culture - Pending
Blood/Venous
Assessment / Plan
Assessment: 29-year-old female with history of significant IV drug abuse admitted for bilateral thigh wounds, drainage and intermittent bleeding.
Plan:
- Patient is afebrile and is resting comfortably. WBC count 6.4, ESR 94
- She has been started on vancomycin 1 g every 12 hours and pip-tazo 3.375 grams every 6 hours.
- Hip x-ray consistent with 'Soft tissue lucencies/wounds appreciated within both proximal thighs, left greater than right. No underlying bony abnormalities or erosions identified to suggest osteomyelitis. Note that radiographs are relatively
insensitive for early detection of this pathology and if there is sufficient clinical concern, consider further evaluation with CT or MRI.'.
- Blood cultures has been obtained x 2.
- Wound cultures with rare WBC, many gram-negative rods and few gram-positive cocci.
- Will continue IV vancomycin and Zosyn.
- Follow blood and wound cultures.
- Check HIV status.
- Considering IOP admission.
- Not currently on hep C treatment, recommend to start treatment outpatient.
- Follow blood and wound cultures.
Care Review
Plan reviewed with: Physician
--- NOTE | 2025-03-08 15:50 | CM ---
CM met with pt bedside
Pt resides with her fiance and mother in a 2SH with 0STE, full flight to 2nd foor
Pt is indep with ADLs,no DMEs
PCP- unknown, has one assigned through insurance but name unknown
Rx- [facility]
Pt is a daily IVDA
Has numerous inpt admissions for D/A tx, approx 10x
Pt has had numerous hospitalizations for wound care and IV abx
No hx with home infusions, hx at outpt wound centers and VN, names unknown
Pt noted she will speak with [facility] closer to dc
Lashawn currently sober for 2 months
Mainted on IOP and suboxone
Noted mother can be made aware of she admitted to hospital
Does not want medical info shared with mother/Jackie Holguin
Discharge Disposition- watch for wound needs, possible [facility]/inpt D/A tx
[2025-03-08] MEDS: ZANAFLEX 2 MG PO ×2 (16:09→22:35)
[2025-03-08 16:48] LABS: Beta HCG Quantitative < 2.39 mIU/ml
[2025-03-08] MEDS: DAKIN'S SOLUTION 0.125% 1/4 STRENGTH 473 ML TOPICAL (17:32)
[2025-03-08 17:52] LABS: Hematocrit 30.2 % (37.0-47.0); Hemoglobin 9.3 g/dL (12.0-16.0)
[2025-03-08 18:00] LABS: Iron 69 ug/dl (37-170)
[2025-03-08 18:02] LABS: Alcohol None Detected
[2025-03-08 18:09] LABS: Percent Saturation 20 % (20-50); Total Iron Binding Capacity 337 ug/dl (265-497)
[2025-03-08] MEDS: VANCOCIN 200 IV (18:54)
[2025-03-08] MEDS: ZOFRAN 4 MG IV (20:14)
--- NOTE | 2025-03-08 21:51 | PTCARENOTE ---
PT arrived to floor from ED via stretcher. Ambulated into bed with minimal assistance. Wound dressing C/D/I. During health history assessment, pt began with increased withdrawal symptoms. Pt with excessive vomiting, goose skin, gross involuntary
tremors, enlarged pupils. Pt expressing 9/10 B/L groin pain. PRN Roxicodone 20mg PO administered.
[2025-03-09] VITALS (44 sets, daily range): BP systolic 126–162; BP diastolic 80–123; BMI 16.8
[2025-03-09] MEDS: OXYCONTIN (CONTROLLED RELEASE) 40 MG PO ×3 (00:01→16:23)
[2025-03-09] MEDS: BELBUCA 300 MCG BUCCAL ×3 (00:02→09:51)
[2025-03-09] MEDS: COMPAZINE 5 MG IV ×2 (00:20→15:29)
[2025-03-09] MEDS: CATAPRES 0.1 MG PO ×3 (00:53→18:26)
[2025-03-09] MEDS: ZOSYN IV (01:24)
[2025-03-09] MEDS: NSS (PRESERVATIVE FREE) 1 ML IV ×4 (01:47→06:55)
[2025-03-09] MEDS: ATIVAN 2 MG IV ×4 (01:47→06:55)
[2025-03-09] MEDS: ROXICODONE 20 MG PO ×3 (02:15→18:27)
[2025-03-09 02:53] LABS: Glucose - Point of Care 125 mg/dl (70-99)
--- NOTE | 2025-03-09 02:56 | W.PN.UPDATE ---
Update Note
Progress Note Update
01:30 Called at bedside to assess the patient, she has involuntary tremors, and withdrawal symptoms. Advised to give PRN given per protocol including Ativan 2 mg and patient was placed one tele.
02:19 Nursing staff, reported that patient`s hr up to 170s, and she just received another PRN dose of Oxy, advised staff to get vital signs/blood pressure.
SOCIOCULTURAL ANTHROPOLOGY PROFESSOR called
the patient is restless with increasing involuntary tremors, diaphoretic. hr 170s, afebrile, spo2 99% RA.
Will transfer the patient to ICU for possible sedation/precedex as needed.
Boyfriend is present at the hospital and aware with the transfer process.
--- NOTE | 2025-03-09 03:00 | PTCARENOTE ---
Addendum entered by Farida Holloway RN 03/09/25 07:50:
This RN was advised to obtain pt's blood pressure after reporting HR. Unable to obtain BP due to patient becoming increasingly more tremulous. 0
Original Note:
Patient found restless, thrashing in bed, clenching teeth, ripped off wound care dressings, and very diaphoretic. Patient stated 'I am withdrawing really bad.' EMERITA Bhatt notified via [employer] at 0127. This RN asked EMERITA Monet to
assess patient at bedside. Patient assessed by EMERITA. IV ativan given. Patient remained tremulous and thrashing in bed. Patient complained of 10/10 pain all throughout body. 20 mg Oxycodone given. Patient placed on telemetry and found to be in SVT
sustaining in the 170s. Patient stated she could feel her heart beating rapidly. EMERITA Monet notified of patient's HR. No new orders placed. Rapid response called on patient. Patient transferred to ICU.
[2025-03-09] MEDS: PRECEDEX 100 IV ×3 (03:16→20:14)
[2025-03-09] MEDS: SUBLIMAZE 100 MCG IV (03:30)
[2025-03-09] MEDS: ZOSYN 50 IV ×4 (03:38→20:14)
[2025-03-09] MEDS: VALIUM INJECTION 10 MG IV (03:48)
[2025-03-09] MEDS: ZOFRAN 4 MG IV ×3 (04:48→20:11)
[2025-03-09] MEDS: ZANAFLEX 2 MG PO ×3 (04:48→17:18)
[2025-03-09] MEDS: VANCOCIN 200 IV ×2 (05:21→17:20)
--- NOTE | 2025-03-09 05:53 | RR ---
Addendum entered by Farida Holloway RN 03/09/25 07:52:
This RN was advised to obtain pt's blood pressure after reporting HR. Unable to obtain BP due to patient becoming increasingly more tremulous.
Original Note:
Patient placed on telemetry and found to be in SVT sustaining in the 170s. Patient stated she could feel her heart beating rapidly. EMERITA Monet notified of patient's HR. No new orders placed.
A Rapid Response was called on this patient, please see Rapid Response form.
[2025-03-09] MEDS: PHENERGAN 51 MG IV (06:10)
--- NOTE | 2025-03-09 06:55 | PTCARENOTE ---
Received pt after rapid response. Pt AAOx3, restless in bed, shaking, thrashing in bed. COWs Q4 protocol (see worklist). Sinus tach on the monitor, received pt with HR 170s, HR now 90s-110s. Pt on RA O2 sat 100%. Pt N/V, vomited multiple times, PRN
Zofran given (see MAR) and Phenergan given (see MAR). Incont of urine. Wound care provided (see worklist). Precedex gtt (see worklist). Multiple doses of Ativan given, Fent given x1, and Valium given x1 (see MAR). Unable to get AM blood work.
Restraints ordered. [facility] bath provided. Safe environment maintained.
--- NOTE | 2025-03-09 08:00 | PTCARENOTE ---
pt awake , non verbal, vomiting , cows score 15, on Precedex at 1mcg , unable to get labs due to very poor vasculature , Sinus tachy on monitor
--- NOTE | 2025-03-09 08:02 | W.PN.HOSP.TC ---
Addendum entered and electronically signed by Yessy Hernandez MD 03/09/25 13:51:
I saw and evaluated the patient. I reviewed the resident�s note and agree with findings and plan as documented in the resident�s note except for changes in my documentation.
29-year-old female with IV drug abuse presented with increased drainage of bilateral thigh wounds she was previously seen at [facility] in [place] and underwent IND of bilateral elbows, bilateral lower leg wounds. Last hospitalized
at [facility] in January has a history of iron deficiency anemia with history of blood transfusions in the past. Last use of drugs was on 03/07/2025 afternoon. Reportedly she was also admitted to [facility]. Admitted to using 1
bundle of fentanyl and 2-3 bags of cocaine daily.
Patient was transferred overnight to ICU for withdrawal symptoms and started on Precedex.
Seen earlier. Late documentation
On examination patient was drowsy arousable answer some questions. She was nauseous and vomited while we were in the room also had hiccups. Able to follow directions but drowsy
Nonhealing wounds with some necrosis and sloughing on both thighs
Scars on both forearms as well as left leg-healing
Cardiovascular system S1-S2 appreciated, no murmur
Abdomen soft and nontender
# Opiate and xylazine withdrawal symptoms
Polysubstance abuse disorder and opiate use disorder
Urine drug screen positive for opiates, fentanyl, cocaine
Uses both fentanyl and cocaine last use was on 03/07/2025
Opiate withdrawal-micro dosing protocol, as needed Zanaflex, clonidine, Subutex, Atarax as needed reviewed, Ativan as needed, oxycodone as needed with OxyContin controlled-release, Precedex for xylazine withdrawal
Use opiate agonist IV if patient cannot keep p.o. because of vomiting
May also use Thorazine if needed for intractable hiccups.
Warm handoff consult before discharge
Continue to monitor in ICU
# Nonhealing bilateral anterior thigh wounds
Infectied wounds
Initial wounds secondary to xylazine injection
Surgery and wound care evaluation
Blood cultures Streptococcus
Wound culture with Staph aureus, strep pyogenes and gram-negative bacilli
Continue IV antibiotics Zosyn and vancomycin
ID evaluation appreciated
# Strep bacteremia-secondary to above. Repeat cultures ordered. Routine echo
# Severe microcytic anemia
Received PRBCs in the ER
CHAR[place]OTTE-IV when better from infection standpoint
Needs GI and MAIL LIST PROCESSOR workup as outpatient
# Hepatitis C-instructed to seek outpatient treatment. Check HIV status
# Active smoker-cessation counseling. Nicotine patch
# DVT prophylaxis-SCDs
# Full code
Asked if I can talk to her mother patient agreed. Called and spoke to patient's mother [phone]. Updated that patient is critically ill from withdrawal symptoms and at the hospital in the ICU. She lives with mother. Patient has 1 child who
does not live with him. Also has a boyfriend who lives with patient and mom.
Total Critical Care Time 36 minutes. I was immediately available to the patient and staff. I personally examined, reviewed labs, diagnostic images/reports, interpretations, treatment plans, discussed patient care with other providers and family ,
entered orders as appropriate and documented the medical record.
Part of this note was created using voice recognition system. Occasional wrong word or��sound alike� substitutions may have inadvertently occurred due to the inherent limitations of voice recognition software. If noted kindly bring it to my
attention for correction.
Original Note:
Today's Communication/Plan
-
- echo pending
- repeat blood cx x2
- antiemetics as needed
Assessment / Plan
Assessment / Plan
Assessment:
29yo F [place] IVDU, hep C, iron deficiency anemia presented to [facility] ED w b/l LE wounds. Uses xylazine daily, last used 5/4 in the afternoon. Wounds on hips after injecting over hips with increasing pain, yellow drainage, foul smell and surrounding
redness.
Plan:
Non-healing wounds b/l ant thighs/groin
Infected wounds/cellulitis secondary to xylazine injections
- appreciate surgery input for possible debridement and woundcare input for f/u
- blood cx: Strep pyogenes
- wound cx: Strep pyogenes, Staph aureus, gram neg bacilli
- IV abx
- follow for improvement
- repeat bc x2
Severe microcytic iron deficiency anemia
- transfused 1 unit pRBCs
- pt denies bleeding
- iron panel - low ferritin, low serum iron, low %sat, normal TIBC, RDW high
- transfuse as needed to keep Hb>7
IVDA
Opioid Use Disorder
Polysubstance Use Disorder
Active smoker
- uds positive for fentanyl, opioids, cocaine, xylazine
- reports daily use of fentanyl and cocaine. Last used 03/07 afternoon
- COWS, microdosing protocol
- nicotine patch
- antiemetics
- would benefit from inpatient rehab
- echo pending
Hepatitis C
- No prior treatment
- HIV status pending
- will need to f/u outpt
Diet: regular
DVT Prophylaxis: SCDs
Code Status: Full
Anticipated Discharge: > 48 hours
Subjective/Interval History
-
Date of Service: March 09, 2025
Overnight, pt developed tremors and w/d sx w HR in 170s. Transferred to ICU for possible sedation/precedex as needed. Precedex running at 1 mcg/kg/hr[facility]
Objective Data
-
Labs:
Laboratory Results
03/09/25
06:00
WBC Pending
Hgb Pending
Hct Pending
Plt Count Pending
PT Pending
INR Pending
APTT Pending
Sodium Pending
Potassium Pending
Chloride Pending
Carbon Dioxide Pending
BUN Pending
Creatinine Pending
Glucose Pending
Calcium Pending
Total Bilirubin Pending
AST Pending
ALT Pending
Alkaline Phosphatase Pending
Vital Signs:
Vital Signs
Temp Pulse Resp BP Pulse Ox
97.8 F 108 25 126/83 97
03/09/25 03:35 03/09/25 07:00 03/09/25 07:00 03/09/25 07:00 03/09/25 07:00
I&O
03/08/25 03/09/25 03/10/25
06:59 06:59 06:59
Intake Total 720.6 / 720.6
Balance 720.6 / 720.6
Review of Systems
-
History Source: Patient
Constitutional: Reports Chills
EENT: Reports No Symptoms Reported
Respiratory: Reports No Symptoms
Cardiac: Reports No Symptoms
Abdomen/GI: Reports Nausea and Vomiting
Musculoskeletal: Reports Myalgias
Skin: Reports No Symptoms
Neuro: Reports No Symptoms
Physical Exam
-
General: Appears in Distress, Chills and Cachectic
HEENT: Normocephalic and Atraumatic
Respiratory: Clear to Auscultation
Cardiac: Regular Rhythm, S1/S2 and Tachycardic
GI: Soft, Nontender, Nondistended and Normal Bowel Sounds
Musculoskeletal: No Clubbing, No Cyanosis and No Edema
Skin: Warm, Dry, Rash, Ulcers and Jaundice
Neuro: Awake and Alert
--- NOTE | 2025-03-09 09:34 | PHA.VAN.FU ---
Vancomycin Assessment / Plan
- Assessment
Renal Function: Stable
In the past 24 hrs, patient has been: Afebrile
Concomitant Antimicrobials: piperacillin/tazobactam
- Dosing Plan
Continue: Vanc 1000mg Q12H
- Monitoring Plan
No level(s) ordered at this time: consider levels in next few days
- Follow Up
Pharmacy will continue to follow.
Vancomycin Follow UP
- -
Patient Age: 29
Patient Sex: Female
Vancomycin Day #: 2
Indication: Skin And Soft Tissue
Requesting Provider: Dr. Cordero
Pertinent Antimicrobial Allergies:
NKDA
Height / Weight:
Height 5 ft 5 in
Actual Weight 45.7 kg
IBW in k
Pertinent Past Medical History: BMI ~19.4, IV CRISTA, HCV
- Vital Signs / Lab Results
Temp Pulse Resp BP Pulse Ox
98.3 F 108 25 126/83 97
03/09/25 08:00 03/09/25 07:00 03/09/25 07:00 03/09/25 07:00 03/09/25 07:00
Lab Results - Hematology
03/08/25
03:09
WBC 6.4
Lab Results - Chemistry
03/08/25
03:09
BUN 10
Creatinine 0.5 L
Estimated Creat Clear 113
Albumin 3.1 L
03/08/25
03:09
Lactic Acid 1.2
Microbiology Results
03/08/25 03:09 Blood Culture - Preliminary
Blood/Venous No Growth in 24 hours- Final report to follow
Gram Stain - Final
03/08/25 04:13 Blood Culture - Preliminary
Blood/Venous Positive culture in progress
Gram Stain - Final
03/08/25 03:38 Gram Stain - Preliminary
Ulcer
--- NOTE | 2025-03-09 09:43 | W.PN.ID1 ---
Date of Service
Date of Service: March 09, 2025
Today's Communication
continue vancomycin and zosyn
repeat blood cultures x2
TTE
records
Assessment / Plan
A&P
Wound Infection
Ongoing IVDU
H/o untreated Hep C
Noncompliance
- wound culture in progress
- blood cultures x2 - 1 set with GPCs in chains
- repeat blood cultures x2
- HIV screen is pending
- patient would need to abstain for at least 6 months from drug use to be a candidate for hep C treatment, ongoing IVDU is a high risk for reinfection - reports she has a doctor who treats hep C that she can follow up with
- QTc is wnl
- no evidence of osteomyelitis on the bilateral xrays
- check TTE
- obtain records from [place] given that she was recommended for a long course of antibiotics which was not completed
- wound care per wound primary care provider
- appreciate surgical input
- agree with vancomycin and zosyn for present
- patient is at risk of reinfection/relapse/progression particularly is she continues to use IV drugs which she reports she is well aware of.
Chief Complaint
-: Other (chronic wound infection)
Subjective / Review of Systems
afebrile
bp stable
moved to ICU last night for withdrawal, restraints started; was in svt now back to sinus tachycardia
Vital Signs / Physical Exam
Vital Signs
Vital Signs
Temp Pulse Resp BP Pulse Ox
98.3 F 108 25 126/83 97
03/09/25 08:00 03/09/25 07:00 03/09/25 07:00 03/09/25 07:00 03/09/25 07:00
Physical Exam
Constitutional: No Acute Distress
Cardiovascular: Regular Rate and S1/S2; Negative Murmur or Rub
Pulmonary: Clear and Symmetric; Negative Wheezes or Rales
Gastrointestinal: Soft, Non Tender, Non Distended and Normal Bowel Sounds
Skin: Warm and Dry; Negative Rash or Jaundice
Wound: Other
Objective Data
Lab Data
ESR 92 mm/hour (0-20) H 03/08/25 03:09
Estimated Creat Clear 113 ml/min 03/08/25 03:09
Lactic Acid 1.2 mmol/L (0.7-2.0) 03/08/25 03:09
Total Bilirubin 0.4 mg/dl (0.2-1.3) 03/08/25 03:09
AST 12 U/L (14-36) L 03/08/25 03:09
ALT < 10 U/L (0-35) 03/08/25 03:09
Alkaline Phosphatase 91 U/L (38-126) 03/08/25 03:09
C-Reactive Protein 31.70 mg/L (0.0-10.00) H 03/08/25 03:09
Most recent labs reviewed.
Micro Results:
03/08/25 03:09 Blood Culture - Preliminary
Blood/Venous No Growth in 24 hours- Final report to follow
Gram Stain - Final
03/08/25 04:13 Blood Culture - Preliminary
Blood/Venous Positive culture in progress
Gram Stain - Final
03/08/25 03:38 Wound Culture - Pending
Ulcer Gram Stain - Preliminary
[2025-03-09] MEDS: SUBUTEX 2 MG SL ×4 (09:50→22:08)
[2025-03-09] MEDS: NICODERM TRANSDERMAL 14 MG TRANSDERM (09:51)
[2025-03-09] MEDS: TORADOL 10 MG IV ×2 (11:07→17:18)
[2025-03-09] MEDS: DAKIN'S SOLUTION 0.125% 1/4 STRENGTH 473 ML TOPICAL (11:21)
--- NOTE | 2025-03-09 12:23 | CON.INTV ---
Consultation
Consultation Request
Date/Time Consultation Requested: 03/09/2025
Date/Time Consultation Performed: 03/09/2025
Reason for Consultation: Drug withdrawal
Medical History
-
Chief Complaint: Nonhealing bilateral anterior thigh/groin wounds
History of Present Illness:
29 female past medical history of IV drug abuse, hep C, chronic wound on anterior thigh secondary to subcutaneous track/xylazine injections. Reportedly patient's last time using drugs was 03/07/2020 5 in the afternoon, she reportedly takes 1 bag of
fentanyl IV daily and 5 bags of cocaine IV daily. Likely underreported drug use quantity. Patient was admitted to the hospital and initiated on opiate withdrawal protocol with micro induction of buprenorphine, however during her first night
patient was having severe withdrawal symptoms and a rapid response was called on her overnight. Reportedly she was having tremors, tachycardia, diaphoresis and was transferred to the ICU. She also received 1 unit packed red blood cell overnight.
Past Medical History
Past Medical History: Other (IV drug abuse, hepatitis C, iron deficiency anemia)
Social History
Drug: Cocaine, Narcotics and IVDA
Allergies / Home Medications
Allergies
Allergy/AdvReac Type Severity Reaction Status Date / Time
No Known Allergies Allergy Verified 03/08/25 01:42
Home Medications
�Medication �Instructions �Recorded �Confirmed �Last Taken �Type
No Meds [No Current Medications] 03/08/25 03/08/25 Unknown History
Review of Systems
-
Unable to Obtain full review of systems at this time due to: Other (Patient was unwilling/withdrawing too heavily to participate in review of systems)
Vitals / Labs / Diagnostic Testing
Vital Signs
Temp Pulse Resp BP Pulse Ox
98.6 F 111 25 150/118 97
03/09/25 11:38 03/09/25 11:08 03/09/25 07:00 03/09/25 11:08 03/09/25 07:00
Microbiology
03/08/25 03:38 Ulcer Wound Culture - Preliminary
Staphylococcus aureus
Gram negative bacilli
Streptococcus pyogenes
03/08/25 03:38 Ulcer Gram Stain - Preliminary
03/08/25 04:13 Blood/Venous Blood Culture - Preliminary
Streptococcus pyogenes
03/08/25 04:13 Blood/Venous Gram Stain - Final
03/08/25 03:09 Blood/Venous Blood Culture - Preliminary
No Growth in 24 hours- Final report to follow
03/08/25 03:09 Blood/Venous Gram Stain - Final
Diagnostic Testing:
Physical Exam
-
Cardiovascular: S1/S2
Respiratory: Other (Unable to auscultate due to poor respiratory effort during physical exam)
General: Other (Patient was contracted and unwilling to participate in physical exam this morning, was unable to examine anterior thigh wounds.)
Assessment
-
Assessment:
29 female past ministry IV drug abuse, hep C, iron deficiency anemia presents for drug withdrawal and bilateral nonhealing anterior thigh wounds. Reportedly using fentanyl/xylazine and cocaine IV. Last known use was reported to be 03/07/2025.
Currently she is on COWS protocol
Plan:
#Opiate use disorder
#Opiate withdrawal
#IV drug use
COWS score this morning 15
UDS positive fentanyl, opiates, cocaine, xylazine
Reports daily use of fentanyl and cocaine IV, last use 03/07/2025 in the afternoon
Initiated on COWS protocol with micro dosing of buprenorphine protocol
Antiemetics as needed, patient having some issue of taking p.o. meds due to nausea and vomiting
Precedex IV while in ICU
Clonidine as needed
Continue buprenorphine micro induction protocol,
Would benefit from inpatient rehab on discharge
#Nonhealing wounds
#Bacteremia
Infected wounds likely secondary to IV drug use and xylazine
Surgery evaluated and determined no acute surgical intervention at this time
Infectious disease following, currently on Zosyn and vancomycin
Blood cultures returned strep pyogenes
Wound cultures returned strep pyogenes, Staph aureus, gram-negative bacilli
Repeat blood cultures ordered
Continue IV antibiotics per ID/primary
PICC line was placed today as patient will likely require long-term IV antibiotics
#Microcytic iron deficiency anemia
Received 1 unit packed red blood cell overnight for hemoglobin below 7
Initial iron studies demonstrated likely iron deficiency anemia, low ferritin, low serum iron, low saturation percentage, normal TIBC and high RDW
Daily CBC to monitor hemoglobin
Transfuse as needed to keep hemoglobin greater than 7
Diet: Regular
DVT prophylaxis: SCDs
CODE STATUS: Full code
--- NOTE | 2025-03-09 12:58 | CM ---
Patient admitted with infected ulcers related Xylazine use.
CM attempted to speak with Monica, however she was unable to converse this afternoon. She had previously agreed to speak with [facility] when she is closer to discharge per prior CM.
Plan: Consider inpatient substance abuse rehab transfer/coordination with [facility]. If discharge to home and patient unable to care for wounds, consider VN.
WOCN recommends follow up at wound care center upon discharge.
Plan: CM to continue to follow to coordinate discharge planning needs as identified through discussion with patient when medically able.
[2025-03-09 13:32] LABS: Hematocrit 30.7 % (37.0-47.0); Hemoglobin 9.9 g/dL (12.0-16.0); Mean Corp Hgb Conc. 32.2 g/dL (33.0-37.0); Mean Corpuscular Hgb 21.7 pg (27.0-31.0); Mean Corpuscular Volume 67.3 fL (81.0-99.0); Mean Platelet Volume 9.7 fL (7.4-10.4); Platelet Count 503 10^3/uL (130-400); Red Blood Cell Count 4.56 10^6/uL (4.20-5.40); Red Cell Dist. Width 22.1 % (11.5-14.5)
[2025-03-09 13:36] LABS: INR 1.22; PT 15.7 Sec (11.4-14.6)
[2025-03-09 13:37] LABS: APTT 29.4 Sec (23.4-35.0)
[2025-03-09 14:04] LABS: ALT (SGPT) 10 U/L (0-35); AST (SGOT) 28 U/L (14-36); Alkaline Phosphatase 120 U/L (38-126); Blood Urea Nitrogen 6 mg/dl (7-17); Calcium 8.4 mg/dl (8.4-10.2); Carbon Dioxide 26 mmol/L (22-30); Chloride 101 mmol/L (98-107); Direct Bilirubin 0.3 mg/dl (0.0-0.4); Estimated Creatinine Clearance 98 ml/min; Glucose 136 mg/dl (70-99); Magnesium 1.9 mg/dl (1.6-2.3); Phosphorus 3.9 mg/dl (2.5-4.5); Potassium 3.6 mmol/L (3.5-5.1); Sodium 141 mmol/L (135-145); Total Bilirubin 0.9 mg/dl (0.2-1.3); Total Protein 8.5 g/dl (6.3-8.2); eGFR > 60.00
[2025-03-09 14:34] LABS: HIV Combo Negative (Negative)
--- NOTE | 2025-03-09 15:10 | PTCARENOTE ---
pt cows 7-15 today , she was vomiting and given Zofran at 1100 , additional PRN Meds given for withdraw symptoms Catapres , Roxicodone , Toradol , Zanaflex all given , she is now more comfortable , no further vomiting since 1100 , continues with
Precedex at 1mcg , she now has a midline IV inserted by IV team , labs sent , blood cultures positive , Dr Angela aware , ID is consulted , patients mother was updated by Dr Ramirez
[2025-03-09] MEDS: LOVENOX 40 MG SC (17:17)
[2025-03-09] MEDS: ATARAX 50 MG PO (20:25)
--- NOTE | 2025-03-09 20:30 | PTCARENOTE ---
Pt c/o nausea and vomiting. PRN zofran administered by this RN.
[2025-03-10] VITALS (34 sets, daily range): BP systolic 119–152; BP diastolic 74–111; PULSE 109; O2SAT 100; BMI 14.9
[2025-03-10] MEDS: COMPAZINE 5 MG IV ×2 (00:38→15:32)
[2025-03-10] MEDS: OXYCONTIN (CONTROLLED RELEASE) 40 MG PO (00:38)
--- NOTE | 2025-03-10 00:45 | PTCARENOTE ---
Upon reassessment pt c/o more nausea. PRN dose of compazine administered by this RN.
[2025-03-10] MEDS: ZOSYN 50 IV ×2 (03:00→08:26)
[2025-03-10] MEDS: PRECEDEX 100 IV ×2 (03:56→19:05)
[2025-03-10 04:37] LABS: Venous Blood Gas B.E. 5.5 mmol/L (-4 to +4); Venous Blood Gas HCO3 28.7 mmol/L (22-27); Venous Blood Gas O2 Sat % 99.1 %; Venous Blood Gas pCO2 36 mmHg (35-48); Venous Blood Gas pH 7.51 (7.32-7.43); Venous Blood Gas pO2 137 mmHg (30-50)
[2025-03-10 04:38] LABS: Venous Blood Gas O2 Therapy 21
[2025-03-10 04:39] LABS: Hematocrit 33.6 % (37.0-47.0); Hemoglobin 10.8 g/dL (12.0-16.0); Mean Corp Hgb Conc. 32.1 g/dL (33.0-37.0); Mean Corpuscular Hgb 21.3 pg (27.0-31.0); Mean Corpuscular Volume 66.1 fL (81.0-99.0); Mean Platelet Volume 8.9 fL (7.4-10.4); Platelet Count 569 10^3/uL (130-400); Red Blood Cell Count 5.08 10^6/uL (4.20-5.40); White Blood Cell Count 17.8 10^3/uL (4.8-10.8)
[2025-03-10] MEDS: ZOFRAN 4 MG IV ×2 (05:04→14:04)
[2025-03-10] MEDS: VANCOCIN 200 IV (05:05)
[2025-03-10 05:10] LABS: ALT (SGPT) 11 U/L (0-35); AST (SGOT) 26 U/L (14-36); Albumin 4.2 g/dl (3.5-5.0); Alkaline Phosphatase 118 U/L (38-126); Blood Urea Nitrogen 18 mg/dl (7-17); Calcium 8.7 mg/dl (8.4-10.2); Carbon Dioxide 25 mmol/L (22-30); Chloride 102 mmol/L (98-107); Estimated Creatinine Clearance 53 ml/min; Glucose 125 mg/dl (70-99); Potassium 3.5 mmol/L (3.5-5.1); Sodium 143 mmol/L (135-145); Total Protein 8.8 g/dl (6.3-8.2); eGFR > 60.00
[2025-03-10] MEDS: ROXICODONE 20 MG PO ×3 (05:14→20:40)
--- NOTE | 2025-03-10 05:30 | PTCARENOTE ---
Pt c/o 8 out of 10 whole body pain. PRN rabia administered by this RN.
--- NOTE | 2025-03-10 05:40 | VATNOTE ---
4FR L MIDLINE DRSG GROSSLY BLOODY. SOME MINIMAL BLEEDING NOTED AT INSERTION SITE. RD PER PROTOCOL WITH GAUZE. ML FLUSHES WELL AND HAS A GOOD BR.
--- NOTE | 2025-03-10 08:07 | W.PN.HOSP.TC ---
Addendum entered and electronically signed by Yessy Hernandez MD 03/10/25 14:53:
D/W mom and updated
Addendum entered and electronically signed by Yessy Hernandez MD 03/10/25 14:51:
I saw and evaluated the patient. I reviewed the resident�s note and agree with findings and plan as documented in the resident�s note except for changes in my documentation.
29-year-old female with IV drug abuse presented with increased drainage of bilateral thigh wounds she was previously seen at [facility] in [place] and underwent IND of bilateral elbows, bilateral lower leg wounds. Last hospitalized
at [facility] in January has a history of iron deficiency anemia with history of blood transfusions in the past. Last use of drugs was on 03/07/2025 afternoon. Reportedly she was also admitted to [facility]. Admitted to using 1
bundle of fentanyl and 2-3 bags of cocaine daily.
Patient was transferred to ICU for withdrawal symptoms and started on Precedex.
Seen earlier. Late documentation
On examination patient was drowsy arousable answers questions.
Nonhealing wounds with some necrosis and sloughing on both thighs
Scars on both forearms as well as left leg-healing
Cardiovascular system S1-S2 appreciated, no murmur
Abdomen soft and nontender
# Opiate and xylazine withdrawal symptoms
Polysubstance abuse disorder and opiate use disorder
Urine drug screen positive for opiates, fentanyl, cocaine
Uses both fentanyl and cocaine last use was on 03/07/2025
Opiate withdrawal-micro dosing protocol, as needed Zanaflex, clonidine, Subutex, Atarax as needed reviewed, Ativan as needed, oxycodone as needed with OxyContin controlled-release, Precedex for xylazine withdrawal
Warm handoff consult before discharge
Continue to monitor in ICU
# Nonhealing bilateral anterior thigh wounds
Infected wounds
X-ray without any osteomyelitis
Initial wounds secondary to xylazine injection
Surgery and wound care evaluation appreciated. No surgical interventions needed
Blood cultures Streptococcus and Staphylococcus aureus
Wound culture with Staph aureus, strep pyogenes and Pseudomonas, Enterococcus
Continue IV antibiotics clindamycin and Zosyn
ID evaluation appreciated
If blood cultures come back positive may need to get PICC line removed
TTE without any endocarditis. Patient may need MAURICIO when able to get it
# Staph aureus and Strep bacteremia-secondary to above. Repeat cultures ordered from 03/09/2025-pending
# Severe microcytic anemia
Received PRBCs in the ER
CHARLOTTE-IV when better from infection standpoint
Needs GI and PLUMBER HELPER workup as outpatient
# Acute kidney injury-IV fluids ordered. Follow creatinine. Avoid hypotension
# Hepatitis C-instructed to seek outpatient treatment. HIV neg
# underweight With a BMI of 14.9
# Active smoker-cessation counseling. Nicotine patch
# DVT prophylaxis-Lovenox
# Full code
Called patient's mother [phone]. Left message
Total Critical Care Time 33 minutes. I was immediately available to the patient and staff. I personally examined, reviewed labs, diagnostic images/reports, interpretations, treatment plans, discussed patient care with other providers and family ,
entered orders as appropriate and documented the medical record.
Part of this note was created using voice recognition system. Occasional wrong word or��sound alike� substitutions may have inadvertently occurred due to the inherent limitations of voice recognition software. If noted kindly bring it to my
attention for correction.
Original Note:
Today's Communication/Plan
-
.
Assessment / Plan
Assessment / Plan
Assessment:
29yo F [facility] IVDU, hep C, iron deficiency anemia presented to [facility] ED w b/l LE wounds. Uses xylazine daily, last used 5/4 in the afternoon. Wounds on hips after injecting over hips with increasing pain, yellow drainage, foul smell and surrounding
redness.
Plan:
Non-healing wounds b/l ant thighs/groin
Infected wounds/cellulitis secondary to xylazine injections
Bacteremia
- appreciate surgery input for possible debridement and woundcare input for f/u
- blood cx: Strep pyogenes, Staph aureus
- wound cx: Strep pyogenes, MSSA, Pseudomonas aeruginosa, Enterococcus species
- IV abx
- follow for improvement
- repeat bc x2
- echo: LVEF 60-65%, no significant valvular dz, no signs of endocarditis
Severe microcytic iron deficiency anemia
- transfused 1 unit pRBCs
- pt denies bleeding
- iron panel - low ferritin, low serum iron, low %sat, normal TIBC, RDW high
- transfuse as needed to keep Hb>7
IVDA
Opioid Use Disorder
Polysubstance Use Disorder
Active smoker
- uds positive for fentanyl, opioids, cocaine, xylazine
- reports daily use of fentanyl and cocaine. Last used / afternoon
- COWS, microdosing protocol
- nicotine patch
- antiemetics
- would benefit from inpatient rehab
Hepatitis C
- No prior treatment
- HIV status pending
- will need to f/u outpt
Hypokalemia
- replete
Cachectic, underweight
Diet: regular
DVT Prophylaxis: SCDs
Code Status: Full
Anticipated Discharge: > 48 hours
Subjective/Interval History
-
Date of Service: March 10, 2025
Pt continues w N/V, chills, and myalgias.
Objective Data
-
Labs:
Laboratory Results
03/10/25
04:29
WBC 17.8 H
Hgb 10.8 L
Hct 33.6 L
Plt Count 569 H
Sodium 143
Potassium 3.5
Chloride 102
Carbon Dioxide 25
BUN 18 H
Creatinine 1.1 H
Glucose 125 H
Calcium 8.7
Total Bilirubin 1.0
AST 26
ALT 11
Alkaline Phosphatase 118
Vital Signs:
Vital Signs
Temp Pulse Resp BP Pulse Ox
98.8 F 123 19 140/98 99
03/10/25 07:50 03/10/25 05:30 03/10/25 05:30 03/10/25 05:30 03/10/25 05:30
I&O
03/09/25 03/10/25 03/11/25
06:59 06:59 06:59
Intake Total 720.6 / 732.0 662.2 / 662.2
Balance 720.6 / 732.0 662.2 / 662.2
Review of Systems
-
History Source: Patient
Constitutional: Reports Chills
Respiratory: Reports No Symptoms
Cardiac: Reports No Symptoms
Abdomen/GI: Reports Nausea and Vomiting; Denies Diarrhea or Constipated
Genitourinary: Reports No Symptoms
Musculoskeletal: Reports Myalgias
Skin: Reports No Symptoms
Neuro: Reports No Symptoms
Endocrine: Reports No Symptoms
Hematologic / Lymphatic: Reports No Symptoms
Allergy / Immunology: Reports No Symptoms
Physical Exam
-
General: Appears in Distress, Chills and Cachectic
HEENT: Normocephalic and Atraumatic
Respiratory: Clear to Auscultation and Non Labored Respirations
Cardiac: Regular Rhythm and S1/S2
GI: Soft, Nondistended, Normal Bowel Sounds and Tender
Musculoskeletal: No Clubbing, No Cyanosis and No Edema
Skin: Warm, Dry, Ulcers, Jaundice and IV Access / Catheter Site (bleeding in L forearm)
Neuro: Awake and Alert
Psych: Anxious
--- NOTE | 2025-03-10 08:10 | PTCARENOTE ---
Assumed care of pt at 0715 following shift report. Pt drowsy but arousable to name. On RA w/ POx 96-98%. Precedex gtt infusing at 1mcg/kg/hr via Lt midline. Large amount bloody drainage noted from midline insertion site- VAT ALEYDA Mercado in room to
assess. Site redressed. Cold compress applied to site. Physical assessment completed as documented. Hygiene and comfort care provided. Bed exit alarm in use. Call marqusi w/in pt reach. Safe environment maintained.
--- NOTE | 2025-03-10 08:15 | W.PN.INTV ---
Today's Communication / Plan
Recommendations
Continue COWS protocol and micro buprenorphine induction
Symptomatic management of withdrawal
Wean Precedex as tolerated
Initiate IV thiamine daily
PT OT/nutrition consult
Discontinue ketorolac, initiate IV fluid bolus, monitor creatinine
Antibiotics per ID/primary
Assessment
-
Assessment:
29 female past medical history IV drug abuse, hep C, iron deficiency anemia presents for drug withdrawal and bilateral nonhealing anterior thigh wounds. Reportedly using fentanyl/xylazine and cocaine IV. Last known use was reported to be 03/07/2025.
Currently she is on COWS protocol and has initiated a buprenorphine micro induction taper with oral oxycodone.
Plan:
#Opiate use disorder
#Opiate withdrawal
#IV drug use
COWS score this morning 5
UDS positive fentanyl, opiates, cocaine, xylazine
Reports daily use of fentanyl and cocaine IV, last use 03/07/2025 in the afternoon
Initiated on COWS protocol with micro dosing of buprenorphine protocol
Antiemetics as needed, patient was previously having some issue of taking p.o. meds due to nausea and vomiting, now tolerating p.o. medications per nursing
Precedex IV while in ICU, attempt to wean as tolerated
Clonidine as needed
Continue buprenorphine micro induction protocol
Would benefit from inpatient rehab on discharge
Add on lab check magnesium and phosphorus
Initiated IV thiamine 200 mg IV daily
#Nonhealing bilateral anterior thigh wounds
#Sepsis with bacteremia
#Leukocytosis
Meets SIRS criteria, leukocytosis and tachycardia with bacteremia and infected anterior thigh wounds
Infected wounds likely secondary to IV drug use and xylazine, patient reports having debridement procedures previously in other facilities
Surgery evaluated and determined no acute surgical intervention at this time
Infectious disease following, initially started on on Zosyn and vancomycin
Infectious disease increased IV Zosyn, added IV clindamycin and discontinued IV vancomycin
Blood cultures returned strep pyogenes
Wound cultures returned strep pyogenes, Staph aureus, gram-negative bacilli
Repeat blood cultures ordered
Continue IV antibiotics per ID/primary
White blood cell count uptrending, normal at admission, now 17.8
Patient reports subjective new onset fever starting last night, no recorded fevers by nursing in EMR.
Status post mid line placement, chest x-ray demonstrated appropriate mid (read as PICC) line placement and no acute cardiopulmonary disease
TTE ordered by infectious disease to evaluate for possible endocarditis, resulted with EF normal 60-65 with no valvular disease or endocarditis lesions noted
UA with culture ordered, patient reports no urinary symptoms
PT OT consult
#Acute kidney injury
Interval increase of creatinine from 0.4-1.1
Likely prerenal secondary to low volume state, increased hemoglobin sign of possible hemoconcentration
One-time LR bolus
Discontinue ketorolac IV
daily BMP in a.m.
#Microcytic iron deficiency anemia
Status post 1 unit packed red blood cell for hemoglobin below 7
Initial iron studies demonstrated likely iron deficiency anemia, low ferritin, low serum iron, low saturation percentage, normal TIBC and high RDW
Hemoglobin seems stable, trending upwards
Daily CBC to monitor hemoglobin
Transfuse as needed to keep hemoglobin greater than 7
Would benefit from outpatient SUPERINTENDENT POWER/GI workup of CHARL[place]TE
#Low BMI
BMI 14.9
Patient is very underweight, appears potentially malnourished
Total protein high, albumin within normal limits
Inpatient nutrition consult
Diet: Regular
DVT prophylaxis: Subcu Lovenox
CODE STATUS: Full code
Subjective Dataa
Subjective Data
Date of Service:
Date of Service: March 10, 2025
Chief Complaint: Quill Layer Follow Up
Subjective:
No acute events overnight, patient continues to progress on her buprenorphine micro induction taper with oral oxycodone. Patient was talkative this morning, responds to questions and participates in physical exam and review of systems. Cow score
interval decrease from 20-5. Reportedly patient is having some difficulty with p.o. meds due to severe nausea and vomiting secondary to opiate withdrawal. Reports new onset fever starting last night, reports some shortness of breath, nausea and
vomiting, no cough, no chest pain, no abdominal pain.
Review of Systems
General: Fever, Sweats and Chills
Cardiopulmonary: Other (Reports shortness of breath)
GI: Nausea and Vomiting
Objective Data
Data Reviewed
Vital Signs / I&O / Oxygen:
Vital Signs
Temp Pulse Resp BP Pulse Ox
98.8 F 123 19 140/98 99
03/10/25 07:50 03/10/25 05:30 03/10/25 05:30 03/10/25 05:30 03/10/25 05:30
Intake and Output
03/09/25 03/10/25 03/11/25
06:59 06:59 06:59
Intake Total 720.6 / 732.0 662.2 / 662.2
Balance 720.6 / 732.0 662.2 / 662.2
SaO2 99
Physical Exam
General: Other (Appears uncomfortable, tremulous, resting in bed)
Cardiovascular: S1-S2 and Other (Tachycardic, heart sounds loud, no murmurs)
Respiratory: Clear
GI: Soft, Non Distended and Non Tender
Neurology: Awake, Alert and Oriented
Skin: Warm and Other (Nonhealing wound visualized on left anterior thigh. Wound is dressed, and packed. No foul smell noted, granulation tissue around periphery of wound)
Labs/Micro/Reports
Lab Data
03/10/25 04:29
03/10/25 04:29
Laboratory Results
03/09/25
13:02
PT 15.7 H
INR 1.22
APTT 29.4
Microbiology
03/08/25 03:38 Ulcer Wound Culture - Preliminary
Staphylococcus aureus
Gram negative bacilli
Streptococcus pyogenes
03/08/25 03:38 Ulcer Gram Stain - Preliminary
03/08/25 03:09 Blood/Venous Blood Culture - Preliminary
No Growth in 48 hours- Final report to follow
03/08/25 03:09 Blood/Venous Gram Stain - Final
03/08/25 04:13 Blood/Venous Blood Culture - Preliminary
Streptococcus pyogenes
03/08/25 04:13 Blood/Venous Gram Stain - Final
[2025-03-10] MEDS: SUBUTEX 4 MG SL ×4 (08:34→21:07)
[2025-03-10] MEDS: NICODERM TRANSDERMAL 14 MG TRANSDERM (08:35)
[2025-03-10] MEDS: OXYCONTIN (CONTROLLED RELEASE) 20 MG PO ×3 (08:35→23:12)
--- NOTE | 2025-03-10 09:05 | W.PN.ID1 ---
Date of Service
Date of Service: March 10, 2025
Today's Communication
- blood cultures x2 in progress one set S aurues and 1 set GAS
- if 5/6 blood cultures become positive then PICC line will need to be removed and replaced at a different site; it can become a nidus for ongoing bacteremia
- would proceed to MAURICIO when feasible
- awaiting records thus re-requested
Assessment / Plan
A&P
Bacteremia
Wound Infection
Ongoing IVDU
GISELL
H/o untreated Hep C
Cachexia
Noncompliance
- wound culture - MSSA, Pseudomonas, GAS, few Enterococcus
- blood cultures x2 in progress one set S aurues and 1 set GAS
- if 5/6 blood cultures become positive then PICC line will need to be removed and replaced at a different site
- repeat blood cultures x2 from 5/6 no growth to date
- HIV screen is negative
- no evidence of osteomyelitis on the bilateral xrays
- TTE without evidence of endocarditis - would proceed to MAURICIO when feasible
- obtain records from [facility] given that she was recommended for a long course of antibiotics which was not completed - not yet on the paper chart - rerequested
- wound care per wound critical care registered nurse
- appreciate surgical input
- continue zosyn increased dose to account for Pseudomonas
- stopped vancomycin
- add clindamycin x2 days
- renally dose adjust antibiotics PRN
- patient is at risk of reinfection/relapse/progression particularly is she continues to use IV drugs which she reports she is well aware of.
Chief Complaint
-: Bacteremia and Other (wound infection)
Subjective / Review of Systems
afebrile
bp stable
no new complaints
Vital Signs / Physical Exam
Vital Signs
Vital Signs
Temp Pulse Resp BP Pulse Ox
98.8 F 123 19 140/98 99
03/10/25 07:50 03/10/25 05:30 03/10/25 05:30 03/10/25 05:30 03/10/25 05:30
Physical Exam
Constitutional: No Acute Distress, Chronically Ill and Cachetic
Cardiovascular: Regular Rate and S1/S2; Negative Murmur or Rub
Pulmonary: Clear and Symmetric; Negative Wheezes or Rales
Gastrointestinal: Soft, Non Tender, Non Distended and Normal Bowel Sounds
Skin: Warm and Dry; Negative Rash or Jaundice
Objective Data
Lab Data
Lab Results
03/10/25 04:29
03/10/25 04:29
ESR 92 mm/hour (0-20) H 03/08/25 03:09
PT 15.7 Sec (11.4-14.6) H 03/09/25 13:02
INR 1.22 03/09/25 13:02
APTT 29.4 Sec (23.4-35.0) 03/09/25 13:02
Estimated Creat Clear 53 ml/min 03/10/25 04:29
Lactic Acid 1.2 mmol/L (0.7-2.0) 03/08/25 03:09
Total Bilirubin 1.0 mg/dl (0.2-1.3) 03/10/25 04:29
AST 26 U/L (14-36) 03/10/25 04:29
ALT 11 U/L (0-35) 03/10/25 04:29
Alkaline Phosphatase 118 U/L (38-126) 03/10/25 04:29
C-Reactive Protein 31.70 mg/L (0.0-10.00) H 03/08/25 03:09
Most recent labs reviewed.
Organism 1 S aureus-Methicillin Sensitive
Organism 2 Pseudomonas aeruginosa
MSSA P.AERU
M.I.C. RX M.I.C. RX
--------- --- --------- ---
Amoxicillin/Potas. Clavulanate <=4/2 S
Ampicillin 8 R
Aztreonam <=4 S
Cefepime 4 S
Ceftazidime <=1 S
Clindamycin <=0.5 R
Ciprofloxacin 0.5 S
Gentamicin <=4 S
Erythromycin >4 R
Levofloxacin <=1 S
Oxacillin 0.5 S
Meropenem <=1 S
Piperacillin/Tazobactam <=8 S
Tetracycline <=4 S
Tobramycin <=2 S
Trimethoprim/Sulfamethoxazole <=0.5/9.5 S
Vancomycin 2 S
Micro Results:
03/08/25 04:13 Blood Culture - Preliminary
Blood/Venous Streptococcus pyogenes
Gram Stain - Final
03/08/25 03:09 Blood Culture - Preliminary
Blood/Venous Staphylococcus aureus
Gram Stain - Final
03/08/25 03:38 Wound Culture - Preliminary
Ulcer Staphylococcus aureus
Gram negative bacilli
Streptococcus pyogenes
Gram Stain - Preliminary
03/09/25 13:02 Blood Culture - Pending
Blood/Venous
03/09/25 13:02 Blood Culture - Pending
Blood/Venous
[2025-03-10] MEDS: CATAPRES 0.1 MG PO ×2 (09:27→17:21)
[2025-03-10] MEDS: ZANAFLEX 2 MG PO ×3 (09:28→22:28)
[2025-03-10] MEDS: LR 500 IV (09:29)
--- NOTE | 2025-03-10 09:35 | PTCARENOTE ---
COWS=16. Pt tearful, flushed, diaphoretic, HR 140-150's. Gross tremors to bilateral upper extremities. Scheduled AM meds already administered- see JAN. Following discussion w/ ICU pharmacist- pt medicated w/ Zanaflex and Catapress. Emotional support
provided. Tapering Precedex gtt as documented. Will continue to monitor.
[2025-03-10] MEDS: DAKIN'S SOLUTION 0.125% 1/4 STRENGTH 20 ML TOPICAL (10:32)
[2025-03-10] MEDS: CLEOCIN 50 IV ×2 (10:34→19:57)
[2025-03-10] MEDS: LR 1000 IV ×2 (10:36→19:57)
--- NOTE | 2025-03-10 11:00 | PTCARENOTE ---
Pt appears more relaxed and reports she feels 'better'. No tremors. All systems reassessed- no changes from previous assessment findings. Safe environment maintained.
[2025-03-10 11:46] LABS: Magnesium 2.1 mg/dl (1.6-2.3); Phosphorus 4.8 mg/dl (2.5-4.5)
--- NOTE | 2025-03-10 12:57 | PN.CDI ---
CDI
- -
CDI:
Physician Documentation Request
Admit Date: 03/08/25 05:29
Dear Doctor,
Please review the following and provide your response in the progress notes.
Clinical Indicators:
Height: 5'5
Weight: 89 lbs
BMI: 14.9
Other Clinical Notes: Delivery Clerk indicates underweight
If possible, please provide an associated diagnosis related to the abnormal BMI, such as:
Cachectic
Underweight
Other (please specify)
Use of terms such as suspected, likely, concern for, or probable (associated with a specific diagnosis that is being evaluated, monitored, or treated as if it exists) are acceptable and can be coded in the inpatient setting, when documented at the
time of discharge.
Thank you,
Susana Modi RN
CDI Specialist
Please use your independent medical judgment in providing your response.
[2025-03-10] MEDS: KCL 270 MEQ IV (13:31)
[2025-03-10 13:33] LABS: Urine Albumin 2+ (Neg - Trace); Urine Bilirubin Negative (Negative); Urine Character Clear (Clear); Urine Color Yellow; Urine Glucose Negative (Negative); Urine Ketone Negative (Negative); Urine Leukocyte Negative (Negative); Urine Nitrite Negative (Negative); Urine Occult Blood Negative (Negative); Urine Urobilinogen Negative (Neg - 1+)
[2025-03-10 13:35] LABS: Urine Red Blood Cell 0-2 /HPF (0-2); Urine White Cell 0-2 /HPF (0-5)
[2025-03-10] MEDS: THIAMINE INJECTION 200 MG IV (13:44)
[2025-03-10] MEDS: ZOSYN 100 IV ×3 (13:44→23:12)
[2025-03-10 14:17] LABS: Urine Sodium 79 mmol/L (30-90)
--- NOTE | 2025-03-10 14:30 | PTCARENOTE ---
Pt OOB to chair during visit w/ PT/OT. Pt tolerated increased activity w/o complications. Remained OOB in chair for approx 1hr w/ chair alarm in use before insisting on returning to bed despite attempts to educate pt on benefits of being OOB. Pt
assisted in returning to bed. Call benitez w/in pt reach. Continuing to taper Precedex gtt and administering prn meds for c/o whole body pain and nausea as documented in JAN.
--- NOTE | 2025-03-10 15:45 | PTCARENOTE ---
At 1530, Pt found retching, leaning over side of bed. Vomited approx 100ml bile colored emesis. Compazine given as requested. MIdline catheter noted to be pulled out farther than previously noted. TT to FAWAD RN requesting they come to bedside to
evaluate. All infusing IVS placed on hold, including Precedex. Zanaflex given PO for pt restlessness voiced feelings of anxiety.
--- NOTE | 2025-03-10 17:48 | PTCARENOTE ---
Pt attempted to eat few bites from dinner tray- fruit -and shortly afterwards vomited moderate amount of bile/partially undigested food. Hygiene/oral care provided. VAT RN in room to place IV access.
[2025-03-11] VITALS (22 sets, daily range): BP systolic 93–156; BP diastolic 53–96; BMI 15.0
[2025-03-11] MEDS: CLEOCIN 50 IV ×3 (01:08→17:00)
--- NOTE | 2025-03-11 01:30 | PTCARENOTE ---
precedex gtt titrated off. pt less anxious --alert and calm. significant other at bedside. call marquis in reach.
[2025-03-11] MEDS: ROXICODONE 20 MG PO (03:09)
[2025-03-11] MEDS: ZOFRAN 4 MG IV (03:09)
[2025-03-11 03:32] LABS: ALT (SGPT) < 10 U/L (0-35); AST (SGOT) 21 U/L (14-36); Albumin 3.1 g/dl (3.5-5.0); Alkaline Phosphatase 69 U/L (38-126); Blood Urea Nitrogen 24 mg/dl (7-17); Calcium 8.1 mg/dl (8.4-10.2); Carbon Dioxide 28 mmol/L (22-30); Chloride 105 mmol/L (98-107); Estimated Creatinine Clearance 58 ml/min; Glucose 109 mg/dl (70-99); Hematocrit 26.8 % (37.0-47.0); Hemoglobin 8.5 g/dL (12.0-16.0); Mean Corp Hgb Conc. 31.7 g/dL (33.0-37.0); Mean Corpuscular Hgb 21.7 pg (27.0-31.0); Mean Corpuscular Volume 68.4 fL (81.0-99.0); Mean Platelet Volume 9.1 fL (7.4-10.4); Platelet Count 387 10^3/uL (130-400); Potassium 3.5 mmol/L (3.5-5.1); Red Blood Cell Count 3.92 10^6/uL (4.20-5.40); Sodium 140 mmol/L (135-145); Total Bilirubin 0.7 mg/dl (0.2-1.3); Total Protein 6.8 g/dl (6.3-8.2); eGFR > 60.00
--- NOTE | 2025-03-11 03:52 | PTCARENOTE ---
AM labs sent. precedex remains off. pt assisted OOB to bathroom with assist x2, unsteady gait, VS stable. call marquis in reach.
[2025-03-11] MEDS: ZOSYN 100 IV ×4 (05:01→23:00)
[2025-03-11] MEDS: SUBUTEX 2 MG SL ×3 (05:41→23:09)
--- NOTE | 2025-03-11 05:56 | PTCARENOTE ---
sinus uriel on monitor 40-60s, occasionally dips into high 30s. ICU RADIUS GRINDER made aware, no further orders. pt asymptomatic. care ongoing
--- NOTE | 2025-03-11 07:52 | W.PN.HOSP.TC ---
Addendum entered and electronically signed by Yessy Hernandez MD 03/11/25 17:28:
Add potassium rider. Patient still has a lot of vomiting therefore cannot tolerate p.o.
Addendum entered and electronically signed by Yessy Hernandez MD 03/11/25 12:42:
I saw and evaluated the patient. I reviewed the resident�s note and agree with findings and plan as documented in the resident�s note except for changes in my documentation.
29-year-old female with IV drug abuse presented with increased drainage of bilateral thigh wounds she was previously seen at [facility] in [place] and underwent IND of bilateral elbows, bilateral lower leg wounds. Last hospitalized
at [facility] in January has a history of iron deficiency anemia with history of blood transfusions in the past. Last use of drugs was on 03/07/2025 afternoon. Reportedly she was also admitted to [facility]. Admitted to using 1
bundle of fentanyl and 2-3 bags of cocaine daily. Patient was transferred to ICU for withdrawal symptoms and started on Precedex.
On examination patient was drowsy arousable answers questions.
Nonhealing wounds with no discharge
Scars on both forearms as well as left leg-healing
Cardiovascular system S1-S2 appreciated, no murmur
Abdomen soft and nontender
# Opiate and xylazine withdrawal symptoms
Polysubstance abuse disorder and opiate use disorder
Urine drug screen positive for opiates, fentanyl, cocaine
Uses both fentanyl and cocaine last use was on 03/07/2025
Opiate withdrawal-micro dosing protocol, as needed Zanaflex, clonidine, Subutex, Atarax as needed reviewed, Ativan as needed, oxycodone as needed with OxyContin controlled-release,
Precedex (for xylazine withdrawal) Stopped- Watch Heart rate ( arrhythmias possible)
Warm handoff consulted
Continue to monitor in ICU today
# Nonhealing bilateral anterior thigh wounds
Infected wounds
X-ray without any osteomyelitis
Initial wounds secondary to xylazine injection
Surgery and wound care evaluation appreciated. No surgical interventions needed
Blood cultures Streptococcus and Staphylococcus aureus
Wound culture with Staph aureus, strep pyogenes and Pseudomonas, Enterococcus
Continue IV antibiotics clindamycin and Zosyn
ID following
If repeat blood cultures come back positive may need to get PICC line removed
TTE without any endocarditis. Patient may need MAURICIO when able to get it
# Staph aureus and Strep bacteremia-secondary to above. Repeat cultures ordered from 03/09/2025-neg
# Severe microcytic anemia
Received PRBCs in the ER
CHARLOTTE-IV when better from infection standpoint
Needs GI and TELEVISION ANTENNA INSTALLER workup as outpatient
# Acute kidney injury-Resolved.
# Hepatitis C-instructed to seek outpatient treatment. HIV neg
# underweight With a BMI of 14.9
# Active smoker-cessation counseling. Nicotine patch
# DVT prophylaxis-Lovenox
# Full code
mother [phone].
D/W RN at bed side
Part of this note was created using voice recognition system. Occasional wrong word or��sound alike� substitutions may have inadvertently occurred due to the inherent limitations of voice recognition software. If noted kindly bring it to my
attention for correction.
Original Note:
Today's Communication/Plan
-
.
Assessment / Plan
Assessment / Plan
Assessment:
29yo F pmh IVDU, hep C, iron deficiency anemia presented to [facility] ED w b/l LE wounds. Uses xylazine daily, last used 03/07 in the afternoon. Wounds on hips after injecting over hips with increasing pain, yellow drainage, foul smell and surrounding
redness.
Plan:
Non-healing wounds b/l ant thighs/groin
Infected wounds/cellulitis secondary to xylazine injections
Bacteremia
- appreciate surgery input for possible debridement and woundcare input for f/u
- blood cx: Strep pyogenes, Staph aureus
- wound cx: Strep pyogenes, MSSA, Pseudomonas aeruginosa, Enterococcus species
- IV abx
- follow for improvement
- repeat bc x2: no growth at 24h
- echo: LVEF 60-65%, no significant valvular dz, no signs of endocarditis
Severe microcytic iron deficiency anemia
- transfused 1 unit pRBCs
- pt denies bleeding
- iron panel - low ferritin, low serum iron, low %sat, normal TIBC, RDW high
- transfuse as needed to keep Hb>7
IVDA
Opioid Use Disorder
Polysubstance Use Disorder
Active smoker
- uds positive for fentanyl, opioids, cocaine, xylazine
- reports daily use of fentanyl and cocaine. Last used 03/07 afternoon
- COWS, microdosing protocol
- nicotine patch
- antiemetics
- would benefit from inpatient rehab
Hepatitis C
- No prior treatment
- HIV status: neg
- will need to f/u outpt
Hypokalemia
- replete
Cachectic, underweight
Diet: regular
DVT Prophylaxis: SCDs
Code Status: Full
Anticipated Discharge: > 48 hours
Subjective/Interval History
-
Date of Service: March 11, 2025
Weaned off of precedex. Bradycardic to 30s-60s. Continues w N/V. Declines hematemesis
Objective Data
-
Labs:
Laboratory Results
03/11/25
03:02
WBC 8.0
Hgb 8.5 L D
Hct 26.8 L
Plt Count 387 D
Sodium 140
Potassium 3.5
Chloride 105
Carbon Dioxide 28
BUN 24 H
Creatinine 0.9
Glucose 109 H
Calcium 8.1 L
Total Bilirubin 0.7
AST 21
ALT < 10
Alkaline Phosphatase 69
Vital Signs:
Vital Signs
Temp Pulse Resp BP Pulse Ox
98.1 F 64 13 104/68 100
03/11/25 03:04 03/11/25 07:00 03/11/25 07:00 03/11/25 07:00 03/11/25 07:00
I&O
03/10/25 03/11/25 03/12/25
06:59 06:59 06:59
Intake Total 662.2 / 673.6 3905.3 / 4005.3 100 / 100
Output Total 800 / 800
Balance 662.2 / 673.6 3105.3 / 3205.3 100 / 100
Review of Systems
-
History Source: Patient
Constitutional: Reports Fever and Chills
Respiratory: Reports No Symptoms
Cardiac: Reports No Symptoms
Abdomen/GI: Reports Nausea and Vomiting
Genitourinary: Reports No Symptoms
Musculoskeletal: Reports No Symptoms
Skin: Reports No Symptoms
Neuro: Reports No Symptoms
Physical Exam
-
General: Appears in Distress and Cachectic
HEENT: Normocephalic, Atraumatic and Moist Mucous Membranes
Respiratory: Clear to Auscultation and Non Labored Respirations
Cardiac: Regular Rhythm and S1/S2
GI: Soft, Nontender, Nondistended and Normal Bowel Sounds
Musculoskeletal: No Clubbing, No Cyanosis and No Edema
Skin: Warm, Dry and Ulcers (granulation tissue forming)
Neuro: Awake, AO x 3, No Motor Deficits and Nonfocal/Grossly Intact
--- NOTE | 2025-03-11 08:00 | PTCARENOTE ---
Pt rec'd from night RN in report 07:15. AOx3 soft spoken, cooperative. Lashawn Nunoy at bedside. Occ bradycardia to high 30s on tele, BPs stable, discussed with MD. Dex has been off since 99, order dc'd. ECG ordered. Assessment and medications as
documented. Pt endorses mild nausea, PRN Compazine given, see MAR. Scheduled dose Subutex administered. Pt declines OOB or wound care done at this time, will return. Pt agreeable to discuss discharge planning with [facility] staff, warm handoff consult
placed, this RN called Ceasar who will send rep up to see patient. Plan discussed with care team in rounds, pt updated, verbalized understanding. Call marquis in hand.
[2025-03-11] MEDS: SUBUTEX 8 MG SL ×2 (08:26→20:01)
[2025-03-11] MEDS: THIAMINE INJECTION 200 MG IV (08:26)
[2025-03-11] MEDS: COMPAZINE 5 MG IV ×3 (08:27→23:09)
[2025-03-11] MEDS: NICODERM TRANSDERMAL 14 MG TRANSDERM (08:28)
[2025-03-11] MEDS: DAKIN'S SOLUTION 0.125% 1/4 STRENGTH 473 ML TOPICAL (08:28)
--- NOTE | 2025-03-11 09:22 | W.PN.ID1 ---
Addendum entered and electronically signed by Genevieve Bravo MD 03/11/25 11:43:
I saw and evaluated the patient. I reviewed the resident�s note and agree with findings and plan as documented in the resident�s note with the following additions/corrections:
Subjective
Some sinus bradycardia overnight, long Qt was noted; qtc this AM is 460
now off of precedex
some vomiting ongoing
no other overnight events
records from Nov 11 2024 admission to [place] arrived; patient confirms this was around the time she was told she might require a longer course of IV antibiotics and reviewed 69 pages notable for
chronic wounds on the bilateral proximal legs and also the L distal leg
11/12 TTE: no evidence of endocarditis
11/17 underwent MRI L femur done first notable for phlegmon, myositis thrombus of of external iliac; there was a hip joint effusion, no evidence of osteomyelitis
Seen by Dr Gomez DERAS; she was initially started on vancomycin, the dc summary indicates that blood cultures ultimately resulted with S aureus, Pseudomonas, and S pyogenes, and MRSA nasal swab was positive, dc summary indicates she was switched to
cefepime.
11/11 blood culture GPC in chains
HIV also negative at that time
11/16 patient drowsy, hypotensive, concern for illicit drug use, security search with multiple open needles in her belongings, she decided to leave [facility] and had capacity and left
Physical Exam
Constitutional: No Acute Distress, Chronically Ill and Cachetic
Cardiovascular: Regular Rate and S1/S2; Negative Murmur or Rub
Pulmonary: Clear and Symmetric; Negative Wheezes or Rales
Gastrointestinal: Soft, Non Tender, Non Distended and Normal Bowel Sounds
Skin: Wounds unchanged bilaterally: there is granulation tissue in the bilateral bases, the left wound has no odor, non significant drainage, no surrounding erythema.
A&P:
Bacteremia - MSSA and S Pyogenes
Wound Infection
Ongoing IVDU
GISELL - improving but not yet resolved
H/o untreated Hep C
Cachexia
Noncompliance
- wound culture - MSSA, Pseudomonas, GAS, few Enterococcus
- blood cultures x2 in progress one set S aures and 1 set GAS
- if 5/6 blood cultures become positive then PICC line will need to be removed and replaced at a different site
- repeat blood cultures x2 from 6 no growth to date
- no evidence of osteomyelitis on the bilateral xrays
- TTE without evidence of endocarditis - would proceed to MAURICIO when feasible
- 69 pages of records from [place] 11/2024 (the period in question) reviewed, no evidence of osteomyelitis, endocarditis or prolonged bacteremia. No clear need for rodent exterminator antibiotics during that admission.
- wound care per wound healthcare applications analyst
- appreciate surgical input
- continue zosyn at 4.5 gm IV q6 hours
- c/w clindamycin IV x2 days given ongoing vomiting, tomorrow will be final day
- renally dose adjust antibiotics PRN
- may consider a long acting lipoglycopeptide vs remaining in patient to complete a course of IV, final decisions pending course
- patient is at risk of reinfection/relapse/progression particularly is she continues to use IV drugs which she reports she is well aware of.
Original Note:
Date of Service
Date of Service: March 11, 2025
Patient seen and of the main at bedside. Overnight, patient was reported to have bradycardia in the high 30s with prolonged QT. Precedex was turned off at 1 AM, patient more alert, oriented and less anxious. Patient reports nausea and multiple
episodes of vomiting, inability to keep anything down.
Today's Communication
Continue antibiotics, patient currently on Zosyn 4.5 Mg IV Q6H, clindamycin IV 900 Mg Q8H day 2/3.
Continue wound care.
Follow cultures.
Assessment / Plan
Ms. King is a 29-year-old female with PMH of IVDA, hep C and iron deficiency anemia who presented for bilateral nonhealing anterior thigh ulcers and drug withdrawal. She uses fentanyl/xylazine and IV cocaine.
Assessment/plan:
#Bilateral nonhealing anterior thigh ulcers:
- From IV drug injections.
- Wound cultures 03/08 positive for MSSA, Pseudomonas, strep pyogenes, and Enterococcus.
- Repeat blood cultures on 03/08 positive for strep pyogenes and MSSA, repeat blood cultures 03/09 NGTD in 24 hours.
- Follow cultures.
- Bilateral hip x-rays negative for osteomyelitis.
- TTE 03/09 with no evidence of endocarditis or valvular disease. Given sensitivity and superiority of MAURICIO, will get imaging when able.
- Continue clindamycin and Zosyn, vancomycin discontinued.
- Continue wound care.
- Off pressors, blood pressure soft. Consider additional bolus IVF.
#Bacteremia with sepsis
- Secondary to multi organism infections.
- Continue antibiotics and follow cultures.
- Monitor BP closely.
#History of hep C
- Untreated.
- Consider outpatient treatment.
#Leukocytosis
- Resolved.
#GISELL
-Management per primary team.
Patient has a hx of noncompliance with treatments.
Chief Complaint
-: Bacteremia and Other (wound infection)
Subjective / Review of Systems
Review of Systems: No Fever, Chills, No Headache, No Cough, No Chest Pain, No Palpitations, No Abdominal Pain, Nausea, Vomiting, No Diarrhea and Other (Bilateral anterior thigh ulcers)
Vital Signs / Physical Exam
Vital Signs
Vital Signs
Temp Pulse Resp BP Pulse Ox
98.0 F 64 13 104/68 100
03/11/25 07:54 03/11/25 07:00 03/11/25 07:00 03/11/25 07:00 03/11/25 07:00
Physical Exam
Constitutional: No Acute Distress, Comfortable and Other (Sleepy but arousable)
Head: Normocephalic
Eyes: Pupils Equal, Pupils Round and Sclera Anicteric
Oropharyngeal: Benign
Cardiovascular: Regular Rate and S1/S2
Pulmonary: Clear and Non Labored
Gastrointestinal: Soft, Non Tender, Non Distended and Normal Bowel Sounds
Extremities: Negative Edema
Musculoskeletal: Negative Joint Swelling
Skin: Warm and Dry; Negative Rash or Jaundice
Wound: Other (Bilateral anterior thigh ulcers)
Neurological: Awake (Sleepy but arousable) and Oriented
Psychological: Calm
Objective Data
Lab Data
Lab Results
03/11/25 03:02
03/11/25 03:02
ESR 92 mm/hour (0-20) H 03/08/25 03:09
PT 15.7 Sec (11.4-14.6) H 03/09/25 13:02
INR 1.22 03/09/25 13:02
APTT 29.4 Sec (23.4-35.0) 03/09/25 13:02
Estimated Creat Clear 58 ml/min 03/11/25 03:02
Lactic Acid 1.2 mmol/L (0.7-2.0) 03/08/25 03:09
Total Bilirubin 0.7 mg/dl (0.2-1.3) 03/11/25 03:02
AST 21 U/L (14-36) 03/11/25 03:02
ALT < 10 U/L (0-35) 03/11/25 03:02
Alkaline Phosphatase 69 U/L (38-126) 03/11/25 03:02
C-Reactive Protein 31.70 mg/L (0.0-10.00) H 03/08/25 03:09
Most recent labs reviewed.
Micro Results:
03/08/25 03:09 Blood Culture - Preliminary
Blood/Venous S aureus-Methicillin Sensitive
Gram Stain - Final
03/09/25 13:02 Blood Culture - Preliminary
Blood/Venous No Growth in 24 hours- Final report to follow
03/09/25 13:02 Blood Culture - Preliminary
Blood/Venous No Growth in 24 hours- Final report to follow
03/08/25 03:38 Wound Culture - Preliminary
Ulcer S aureus-Methicillin Sensitive
Pseudomonas aeruginosa
Streptococcus pyogenes
Enterococcus species
Gram Stain - Preliminary
03/08/25 04:13 Blood Culture - Preliminary
Blood/Venous Streptococcus pyogenes
Gram Stain - Final
Chest X-Ray: Image Reviewed (No acute cardiopulmonary process) and Report Reviewed
Care Review
Plan reviewed with: Physician
[2025-03-11] MEDS: LR 1000 IV (10:28)
[2025-03-11] MEDS: ZANAFLEX 2 MG PO ×2 (11:08→20:01)
--- NOTE | 2025-03-11 11:14 | W.PN.INTV ---
Addendum entered and electronically signed by Boyd Angela MD 03/12/25 07:32:
Patient transferred to IMU. Automobile Damage Appraiser service will sign off. Please call as needed.
Original Note:
Today's Communication / Plan
Recommendations
Stable for downgrade out of ICU
Continue buprenorphine micro induction taper
Continue LR 60 mL/h scheduled
Continue supportive measures
Discontinue Precedex
Check EKG for QT monitoring
Assessment
-
Assessment:
29 female past medical history IV drug abuse, hep C, iron deficiency anemia presents for drug withdrawal and bilateral nonhealing anterior thigh wounds. Reportedly using fentanyl/xylazine and cocaine IV. Last known use was reported to be 03/07/2025.
Currently she is on COWS protocol and has initiated a buprenorphine micro induction taper with oral oxycodone.
Plan:
#Opiate use disorder
#Opiate withdrawal
#IV drug use
Progressing well, stable for downgrade out of ICU
Last COWS scores checked was 5, nursing has stopped checking. COWS score not required for buprenorphine micro duction taper
UDS positive fentanyl, opiates, cocaine, xylazine
Reports daily use of fentanyl and cocaine IV, last use 03/07/2025 in the afternoon
Antiemetics as needed, patient was previously having some issue of taking p.o. meds due to nausea and vomiting, now tolerating p.o. medications per nursing
Was able to be weaned off of IV Precedex this morning. Precedex discontinued
Will check EKG for QTc monitoring
Clonidine as needed
Continue buprenorphine micro induction protocol
Would benefit from inpatient rehab on discharge
Magnesium and phosphorus levels were checked and did not require replacement
Continue thiamine replacement
#Nonhealing bilateral anterior thigh wounds
#Sepsis with bacteremia
#Leukocytosis
Leukocytosis has resolved
Meets SIRS criteria, leukocytosis and tachycardia with bacteremia and infected anterior thigh wounds
Infected wounds likely secondary to IV drug use and xylazine, patient reports having debridement procedures previously in other facilities
Surgery evaluated and determined no acute surgical intervention at this time
Infectious disease following, initially started on on Zosyn and vancomycin
Infectious disease increased IV Zosyn, added IV clindamycin and discontinued IV vancomycin
Blood cultures returned strep pyogenes
Wound cultures returned strep pyogenes, Staph aureus, gram-negative bacilli
Repeat blood cultures ordered
Continue IV antibiotics per ID/primary
Status post mid line placement, chest x-ray demonstrated appropriate mid (read as PICC) line placement and no acute cardiopulmonary disease
PT OT consult
#Acute kidney injury
Improving
Interval increase of creatinine from 0.4-1.1, now 0.9
Etiology was likely prerenal as creatinine improved after LR fluid bolus
Continue LR fluid scheduled at 60 mL/h
Discontinue ketorolac IV
daily BMP in a.m.
#Microcytic iron deficiency anemia
Status post 1 unit packed red blood cell for hemoglobin below 7
Initial iron studies demonstrated likely iron deficiency anemia, low ferritin, low serum iron, low saturation percentage, normal TIBC and high RDW
Hemoglobin seems stable, trending upwards
Daily CBC to monitor hemoglobin
Transfuse as needed to keep hemoglobin greater than 7
Would benefit from outpatient RACK WORKER/GI workup of [place]TE
#Low BMI
BMI 14.9
Patient is very underweight, appears potentially malnourished
Total protein high, albumin within normal limits
Inpatient nutrition consult
Diet: Regular
DVT prophylaxis: Subcu Lovenox
CODE STATUS: Full code
Subjective Dataa
Subjective Data
Date of Service:
Date of Service: March 11, 2025
Chief Complaint: Automobile Damage Appraiser Follow Up
Subjective:
Reportedly episode of bradycardia overnight, patient continues to progress in her buprenorphine micro duction taper with oral oxycodone. Patient still talkative this morning, responding to questions and participating physical exam and review of
systems. COWS score is stop being checked, by nursing 2 days ago lower score recorded was 5. Patient still reports symptoms of severe opiate withdrawal. Was able to be tapered off of Precedex overnight.
Review of Systems
General: Fever (Subjectively reports fever) and Sweats
Cardiopulmonary: Other (Subjective shortness of breath)
GI: Nausea and Vomiting
Objective Data
Data Reviewed
Vital Signs / I&O / Oxygen:
Vital Signs
Temp Pulse Resp BP Pulse Ox
98.0 F 61 13 93/62 98
03/11/25 07:54 03/11/25 09:00 03/11/25 09:00 03/11/25 09:00 03/11/25 09:00
Intake and Output
03/10/25 03/11/25 03/12/25
06:59 06:59 06:59
Intake Total 662.2 / 673.6 3905.3 / 4005.3 400 / 400
Output Total 800 / 800
Balance 662.2 / 673.6 3105.3 / 3205.3 400 / 400
SaO2 98
Physical Exam
General: Other (Appears uncomfortable, tremulous, resting in bed)
Cardiovascular: S1-S2 and Other (Tachycardic, heart sounds loud, no murmurs)
Respiratory: Clear
GI: Soft, Non Distended and Non Tender
Neurology: Awake, Alert and Oriented
Skin: Warm and Other (Nonhealing wound visualized on left anterior thigh. Wound is dressed, and packed. No foul smell noted, granulation tissue around periphery of wound)
Labs/Micro/Reports
Lab Data
03/11/25 03:02
03/11/25 03:02
Microbiology
03/08/25 04:13 Blood/Venous Blood Culture - Final
Streptococcus pyogenes
03/08/25 04:13 Blood/Venous Gram Stain - Final
03/08/25 03:09 Blood/Venous Blood Culture - Final
S aureus-Methicillin Sensitive
03/08/25 03:09 Blood/Venous Gram Stain - Final
03/08/25 03:38 Ulcer Wound Culture - Final
S aureus-Methicillin Sensitive
Pseudomonas aeruginosa
Enterococcus faecalis
Streptococcus pyogenes
03/08/25 03:38 Ulcer Gram Stain - Final
03/09/25 13:02 Blood/Venous Blood Culture - Preliminary
No Growth in 24 hours- Final report to follow
03/09/25 13:02 Blood/Venous Blood Culture - Preliminary
No Growth in 24 hours- Final report to follow
--- NOTE | 2025-03-11 11:33 | CM ---
Ceasar from [facility] to meet with Monica today to discuss resources and options for substance abuse recovery.
CM will continue to follow for all discharge planning needs as hospitalization progresses.
--- NOTE | 2025-03-11 12:27 | PTCARENOTE ---
Pt declines wound care at this time, 'I'm just trying to get some sleep.' Pt with scant urine output in purewick, no urge to void at this time. Poor oral intake this am. Will follow.
[2025-03-11] MEDS: CATAPRES 0.1 MG PO (14:29)
[2025-03-11] MEDS: ATARAX 50 MG PO (15:56)
--- NOTE | 2025-03-11 16:06 | PTCARENOTE ---
Wound care performed, pt with menses. Large amount urine on covidien underpad. Pt assisted oob to use toilet, sit in chair. Pt x1 assist for unsteady gait. Pt with emesis after sitting up in chair. Now resting with head on table. Pt with depressed
affect, discussing her detox with RN, stated 'it's never been this bad.' She stated she had been using tranq for over a year unknowingly. Emotional support provided. Linens changed, CHG bath done. Call marquis in reach.
--- NOTE | 2025-03-11 17:07 | PTCARENOTE ---
Pt assisted back to bed, PRN 2 mg Subutex dose administered for continued withdrawal sx...IMU orders rec'd at this time. Pt updated and verbalized understanding.
[2025-03-11] MEDS: KCL 160 MEQ IV (18:10)
--- NOTE | 2025-03-11 19:50 | PTCARENOTE ---
sales service manager, aaox3, SB-SR HR 50-60s. R midline WNL w/IVF infusing per work list. pt assist x1 to bathroom. POC discussed, call marquis with pt.
[2025-03-12] VITALS (12 sets, daily range): BP systolic 121–157; BP diastolic 73–102; BMI 15.6
[2025-03-12] MEDS: CATAPRES 0.1 MG PO ×2 (00:52→11:48)
[2025-03-12] MEDS: LR 1000 IV ×2 (02:19→15:59)
[2025-03-12] MEDS: CLEOCIN 50 IV (02:19)
[2025-03-12] MEDS: ATARAX 50 MG PO ×2 (02:19→13:08)
[2025-03-12] MEDS: SUBUTEX 2 MG SL ×4 (03:18→19:53)
[2025-03-12] MEDS: ZANAFLEX 2 MG PO ×4 (03:18→22:00)
[2025-03-12 03:35] LABS: Hematocrit 30.2 % (37.0-47.0); Hemoglobin 9.4 g/dL (12.0-16.0); Mean Corp Hgb Conc. 31.1 g/dL (33.0-37.0); Mean Corpuscular Hgb 21.2 pg (27.0-31.0); Mean Platelet Volume 9.1 fL (7.4-10.4); Platelet Count 411 10^3/uL (130-400); Red Blood Cell Count 4.44 10^6/uL (4.20-5.40); Red Cell Dist. Width 23.3 % (11.5-14.5); White Blood Cell Count 8.6 10^3/uL (4.8-10.8)
[2025-03-12] MEDS: ZOSYN 100 IV ×4 (05:02→23:43)
[2025-03-12 05:40] LABS: ALT (SGPT) < 10 U/L (0-35); AST (SGOT) 24 U/L (14-36); Albumin 3.5 g/dl (3.5-5.0); Alkaline Phosphatase 71 U/L (38-126); Blood Urea Nitrogen 14 mg/dl (7-17); Calcium 8.2 mg/dl (8.4-10.2); Carbon Dioxide 25 mmol/L (22-30); Chloride 105 mmol/L (98-107); Estimated Creatinine Clearance 91 ml/min; Glucose 102 mg/dl (70-99); Potassium 3.8 mmol/L (3.5-5.1); Sodium 139 mmol/L (135-145); Total Bilirubin 0.8 mg/dl (0.2-1.3); Total Protein 7.3 g/dl (6.3-8.2); eGFR > 60.00
[2025-03-12] MEDS: NICODERM TRANSDERMAL 14 MG TRANSDERM (07:12)
[2025-03-12] MEDS: SUBUTEX 16 MG SL (07:12)
[2025-03-12] MEDS: THIAMINE INJECTION 200 MG IV (07:13)
[2025-03-12] MEDS: DAKIN'S SOLUTION 0.125% 1/4 STRENGTH 473 ML TOPICAL (07:17)
--- NOTE | 2025-03-12 07:32 | PTCARENOTE ---
Pt rec'd from night RN in report. Pt ringing the marquis asking for medications for withdrawal sx. Scheduled SL Subutex administered. Pt asking who she can speak to about discharge. RN informed her to discuss dc plans with Dr. Hernandez or her resident.
Pt was incont large amount of urine -linens changed, pericare provided and CHG bath done. Wound care to bilat groins done. Call marquis and phone in hand.
--- NOTE | 2025-03-12 10:50 | W.PN.ID1 ---
Addendum entered and electronically signed by Genevieve Bravo MD 03/12/25 13:25:
I saw and evaluated the patient. I reviewed the resident�s note and agree with findings and plan as documented in the resident�s note with the following additions/corrections:
Subjective:
asking about dc overnight; has a long history of leaving AMA
Physical Exam
Constitutional: No Acute Distress, Chronically Ill and Cachetic
Cardiovascular: Regular Rate and S1/S2; Negative Murmur or Rub
Pulmonary: Clear and Symmetric; Negative Wheezes or Rales
Gastrointestinal: Soft, Non Tender, Non Distended and Normal Bowel Sounds
Skin: Wounds unchanged bilaterally: there is granulation tissue in the bilateral bases, the left wound has no odor, non significant drainage, no surrounding erythema.
A&P
MSSA and S pyogenes Bacteremia
Wound Infection
Ongoing IVDU
GISELL - resolved
H/o untreated Hep C
Cachexia
H/o Noncompliance
- wound culture - MSSA, Pseudomonas, GAS, few Enterococcus
- blood cultures x2 in progress one set S aurues and 1 set GAS
- if 5/6 blood cultures become positive then PICC line will need to be removed and replaced at a different site
- repeat blood cultures x2 from 5/6 no growth to date
- TTE without evidence of endocarditis - given that bacteremia has not persisted and S aureus was only in one set, no need for MAURICIO at this time
- wound care per wound career education teacher
- continue zosyn at 4.5 gm IV q6 until discharge, she has completed approximately 5 days
- gave one time dose of dalbavancin which completes course for MSSA bacteremia
- completed clindamycin
- renally dose adjust antibiotics PRN
- midline was placed per automotive parts clerk service, please note if she attempts to leave AMA I would urge removal prior to her leaving
- patient is at risk of reinfection/relapse/progression particularly is she continues to use IV drugs which she reports she is well aware of. She plans to leave AM at 3PM
Original Note:
Date of Service
Date of Service: March 12, 2025
Patient seen and examined at bedside. Overnight, patient was asking who she will talk to about discharge. At bedside, she reports several episodes of nausea and vomiting overnight, with chills but denies fever, chest pain or shortness of breath.
She also endorses pain around the wound area that is tolerable. Denies abdominal pain, urinary symptoms.
Today's Communication
Stop clindamycin.
Give 1 dose of dalbavancin.
Continue wound care.
Follow cultures.
Assessment / Plan
Ms. King is a 29-year-old female with PMH of IVDA, hep C and iron deficiency anemia who presented for bilateral nonhealing anterior thigh ulcers and drug withdrawal. She uses fentanyl/xylazine and IV cocaine.
Assessment/plan:
#Bilateral nonhealing anterior thigh ulcers:
- From IV drug injections.
- Wound cultures 03/08 positive for MSSA, Pseudomonas, strep pyogenes, and Enterococcus..
- Blood cultures on 03/08 positive for strep pyogenes in 1 set and MSSA and the other set.
- Repeat blood cultures 03/09 NGTD in 48 hours.
- Follow cultures.
- Bilateral hip x-rays negative for osteomyelitis.
- TTE 03/09 with no evidence of endocarditis or valvular disease.
- Completed 2 days course of clindamycin, continue Zosyn.
- Since patient cannot stay for a longer duration of antibiotics will give a dose of dalbavancin today.
- Continue wound care.
#Bacteremia with sepsis
- Secondary to multi organism infections.
- Continue antibiotics and follow cultures.
#History of hep C
- Untreated.
- Consider outpatient treatment.
#Leukocytosis
- Resolved.
#GISELL
-Management per primary team.
Patient has a hx of noncompliance with treatments.
Chief Complaint
-: Bacteremia and Other (wound infection)
Subjective / Review of Systems
Review of Systems: No Fever, Chills, No Headache, No Cough, No Chest Pain, No Palpitations, No Abdominal Pain, Nausea, Vomiting, No Diarrhea and Other (Bilateral anterior thigh ulcers)
Vital Signs / Physical Exam
Vital Signs
Vital Signs
Temp Pulse Resp BP Pulse Ox
98.2 F 101 19 121/75 100
03/12/25 08:01 03/12/25 07:00 03/12/25 07:00 03/12/25 06:00 03/12/25 07:30
Physical Exam
Constitutional: No Acute Distress, Comfortable and Chronically Ill
Head: Normocephalic
Eyes: Pupils Equal, Pupils Round and Sclera Anicteric
Oropharyngeal: Benign
Cardiovascular: Regular Rate and S1/S2
Pulmonary: Clear and Non Labored
Gastrointestinal: Soft, Non Tender, Non Distended and Normal Bowel Sounds
Extremities: Negative Edema
Musculoskeletal: Negative Joint Swelling
Skin: Warm and Dry; Negative Rash or Jaundice
Wound: Other (Bilateral anterior thigh ulcers)
Neurological: Awake (Sleepy but arousable) and Oriented
Psychological: Calm
Objective Data
Lab Data
Lab Results
03/12/25 03:12
03/12/25 05:02
ESR 92 mm/hour (0-20) H 03/08/25 03:09
PT 15.7 Sec (11.4-14.6) H 03/09/25 13:02
INR 1.22 03/09/25 13:02
APTT 29.4 Sec (23.4-35.0) 03/09/25 13:02
Estimated Creat Clear 91 ml/min 03/12/25 05:02
Lactic Acid 1.2 mmol/L (0.7-2.0) 03/08/25 03:09
Total Bilirubin 0.8 mg/dl (0.2-1.3) 03/12/25 05:02
AST 24 U/L (14-36) 03/12/25 05:02
ALT < 10 U/L (0-35) 03/12/25 05:02
Alkaline Phosphatase 71 U/L (38-126) 03/12/25 05:02
C-Reactive Protein 31.70 mg/L (0.0-10.00) H 03/08/25 03:09
Most recent labs reviewed.
Microbiology: Report Reviewed
Micro Results:
03/09/25 13:02 Blood Culture - Preliminary
Blood/Venous No Growth in 48 hours- Final report to follow
03/09/25 13:02 Blood Culture - Preliminary
Blood/Venous No Growth in 48 hours- Final report to follow
03/08/25 04:13 Blood Culture - Final
Blood/Venous Streptococcus pyogenes
Gram Stain - Final
03/08/25 03:09 Blood Culture - Final
Blood/Venous S aureus-Methicillin Sensitive
Gram Stain - Final
03/08/25 03:38 Wound Culture - Final
Ulcer S aureus-Methicillin Sensitive
Pseudomonas aeruginosa
Enterococcus faecalis
Streptococcus pyogenes
Gram Stain - Final
Care Review
Plan reviewed with: Nurse, Physician and Other Provider (Primary team)
--- NOTE | 2025-03-12 11:03 | PTCARENOTE ---
Pt wanting to leave AMA. Plan discussed with [facility] rep and Dr. Hernandez, ID resident. Pt agrees to wait until 3pm to see if bed available at [place]. Pt with large soft BM, partially incontinent. Dressing changed multiple times. PRNs administered
for w/d sx, see JAN.
--- NOTE | 2025-03-12 12:16 | PTCARENOTE ---
MDs with concern patient may be using substances from her personal belongings bag, pt agreed to allow security to search belongings. CC director and 2 security guards in room along with RN. Empty cocaine bagggies found, pt stated they were 'from a
long time ago.' UDS ordered.
[2025-03-12] MEDS: D5W 25 ML IV (12:28)
[2025-03-12] MEDS: DALVANCE 575 MG IV (12:28)
--- NOTE | 2025-03-12 12:46 | W.PN.HOSP.TC ---
Today's Communication/Plan
-
Continue IV antibiotics
If patient is staying till Saturday we will request cardiology for a MAURICIO
If patient leaves AMA remove IV line before that
Assessment / Plan
Assessment / Plan
29-year-old female with IV drug abuse presented with increased drainage of bilateral thigh wounds she was previously seen at [facility] in [place] and underwent IND of bilateral elbows, bilateral lower leg wounds. Last hospitalized
at [facility] in January has a history of iron deficiency anemia with history of blood transfusions in the past. Last use of drugs was on 03/07/2025 afternoon. Reportedly she was also admitted to [facility]. Admitted to using 1
bundle of fentanyl and 2-3 bags of cocaine daily. Patient was transferred to ICU for withdrawal symptoms and started on Precedex.
awake alert and oriented
Wants to leave ama
Nonhealing wounds with no discharge
Scars on both forearms as well as left leg-healing
Cardiovascular system S1-S2 appreciated, no murmur
Abdomen soft and nontender
Slightly restless
# Opiate and xylazine withdrawal symptoms
Polysubstance abuse disorder and opiate use disorder
Urine drug screen positive for opiates, fentanyl, cocaine
Uses both fentanyl and cocaine last use was on 03/07/2025
Opiate withdrawal-micro dosing protocol, as needed Zanaflex, clonidine, Subutex, Atarax as needed reviewed, Ativan as needed, oxycodone as needed with OxyContin controlled-release,
Precedex (for xylazine withdrawal) Stopped
Warm handoff consulted was in the room when I was there this am
# Nonhealing bilateral anterior thigh wounds
Infected wounds
X-ray without any osteomyelitis
Initial wounds secondary to xylazine injection
Surgery and wound care evaluation appreciated. No surgical interventions needed
Blood cultures Streptococcus and Staphylococcus aureus
Wound culture with Staph aureus, strep pyogenes and Pseudomonas, Enterococcus
Continue IV antibiotics Zosyn till she leaves per ID
Got Dalvance today
Repeat blood cultures neg
TTE without any endocarditis. Patient may need MAURICIO if she stays
# Staph aureus and Strep bacteremia-secondary to above. Repeat cultures ordered from 03/09/2025-neg
# Severe microcytic anemia
Received PRBCs in the ER
CHARLOTTE-IV when better from infection standpoint
Needs GI and FINANCIAL REPORTING ADVISOR workup as outpatient pt aware.
# Acute kidney injury-Resolved.
# Hepatitis C-instructed to seek outpatient treatment. HIV neg . Pt aware re complications of untreated Hep c including cirrhosis, ESLD and cancer.
# underweight With a BMI of 14.9
# Active smoker-cessation counseling. Nicotine patch
# DVT prophylaxis-Lovenox
# Full code
Pt did not want me to talk to mom today She was very specific about it.
mother [phone].
D/W RN at bed side
Patient was given Dalvance in case she left AMA. Ideally needs another dose in 2 weeks. I tried my best to convince the patient to stay and she is aware that if she gets back to the previous dose of drug abuse she she could with overdose. She
is also aware about all the ill effects of drug abuse.
Bcares walked in when I was leaving the room, is trying to get pt to a rehab.
Part of this note was created using voice recognition system. Occasional wrong word or��sound alike� substitutions may have inadvertently occurred due to the inherent limitations of voice recognition software. If noted kindly bring it to my
attention for correction.
time spent over 50 min
Anticipated Discharge: > 48 hours
Subjective/Interval History
-
Date of Service: March 12, 2025
Objective Data
-
Labs:
Laboratory Results
03/12/25 03/12/25
03:12 05:02
WBC 8.6
Hgb 9.4 L
Hct 30.2 L
Plt Count 411 H
Sodium Cancelled 139
Potassium Cancelled 3.8
Chloride Cancelled 105
Carbon Dioxide Cancelled 25
BUN Cancelled 14
Creatinine Cancelled 0.6
Glucose Cancelled 102 H
Calcium Cancelled 8.2 L
Total Bilirubin Cancelled 0.8
AST Cancelled 24
ALT Cancelled < 10
Alkaline Phosphatase Cancelled 71
Vital Signs:
Vital Signs
Temp Pulse Resp BP Pulse Ox
98 F 69 13 150/94 100
03/12/25 11:30 03/12/25 11:48 03/12/25 11:07 03/12/25 11:48 03/12/25 07:30
I&O
03/11/25 03/12/25 03/13/25
06:59 06:59 06:59
Intake Total 3905.3 / 4005.3 2630 / 2710 598 / 598
Output Total 800 / 800 201 / 201
Balance 3105.3 / 3205.3 2429 / 2509 598 / 598
--- NOTE | 2025-03-12 12:47 | PTCARENOTE ---
Pt again stated she plans to leave AMA at 3 if there is no bed available at [facility] - her fiance will pick her up. Education provided.
--- NOTE | 2025-03-12 15:06 | PTCARENOTE ---
Lashawn Gilman arrived to room, upon conversation with this RN, it became apparent he was unaware patient was trying leave AMA, she had led him to believe she was discharged. He is trying to convince patient to stay in hospital, stated it 'is not a
good idea for you to leave now. This is the nicest hospital we have been in.' He is offering patient physical presence and emotional support.
--- NOTE | 2025-03-12 15:17 | PN.CDI ---
CDI
- -
CDI:
Physician Documentation Request
Admit Date: 03/08/25 05:29
Dear Doctor Mary,
Please review the following and provide your response in the progress notes.
Clinical Indicators:
- Trolley Wire Installer indicates severe protein calorie malnutrition
- Unintentional weight loss >10% in 6 months
- Nutrient intake </=75% estimated energy needs, >/= 1 month
- Moderate muscle loss over temporal, buccal
Based on the above information and your assessment, which of the following most accurately represents the patient's nutritional status?
Severe protein calorie malnutrition
Other (please specify)
Herrin Criteria ([facility] Hospitalist 2017)
2 or more criteria must be present for either
non severe or severe malnutrition
Note that the criteria differs related to the
presence of an acute or chronic illness
Acute Illness Chronic Illness
Energy Intake Non Severe: <75% for >7 days Non Severe: <75% for >1 month
Severe: <50% for >5 days Severe: <75% for >1 month
Weight Loss Non Severe: 1-2% over 1 week Non Severe: 5% over 1 month
5% over 1 month 7.5% over 3 months
7.5% over 3 months 10% over 6 months
1 year N/A 20% over 1 year
Severe: >2% over 1 week Severe: >5% over 1 month
>5% over 1 month >7.5% over 3 months
>7.5% over 3 months >10% over 6 months
1 year N/A >20% over 1 year
Body Fat Non Severe: Mild Decrease Non Severe: Mild Loss
Severe: Moderate Decrease Severe: Severe Loss
Muscle Mass Non Severe: Mild Decrease Non Severe: Mild Loss
Severe: Moderate Decrease Severe: Severe Loss
Fluid Accumulation Non Severe: Mild Accumulation Non Severe: Mild Accumulation
Severe: Moderate to severe Severe: Moderate to severe
accumulation accumulation
Reduced Manager Event Strength Non Severe: N/A Non Severe: N/A
Severe: Measurably reduced Severe: Measurably reduced
Additional criteria that can be used to Determine if Mild or Moderate Malnutrition (Merck Manual 2018)
Mild Moderate Severe
Albumin gm/dl <3.0 gm/dl <2.5 gm/dl <2.0 gm/dl
Pre Albumin mg/dl <15 gm/dl <10 mg/dl <5.0 mg/dl
BMI <18.5 <17 <16
Use of terms such as suspected, likely, concern for, or probable (associated with a specific diagnosis that is being evaluated, monitored, or treated as if it exists) are acceptable and can be coded in the inpatient setting, when documented at the
time of discharge.
Thank you,
Susana Modi RN
CDI Specialist
Please use your independent medical judgment in providing your response.
[2025-03-12] MEDS: COMPAZINE 5 MG IV (15:57)
[2025-03-12 17:26] LABS: Benzodiazepines Positive (Negative); Buprenorphine Positive (Negative); Cocaine Positive (Negative); Marijuana Negative (Negative); Methadone Negative (Negative); Methamphetamines Negative (Negative); Opiates Negative (Negative); Phencyclidine Negative (Negative); Tricyclic Antidepressants Negative (Negative)
[2025-03-12 17:27] LABS: Amphetamines Negative (Negative); Barbiturates Negative (Negative)
[2025-03-12 17:41] LABS: Fentanyl, Urine Positive (Negative)
--- NOTE | 2025-03-12 18:35 | PTCARENOTE ---
Pt has agreed to stay in hospital until discharged. Telemetry electrodes changed to sensitive skin option due to skin irritation noted on patient's torso from regular ones. Lashawn returned to bedside, they are watching movie together, he brought in
snacks and coloring books. PRNs administered to pt for w/d sx -see flowsheet. UDS sent and results noted, discussed with pharmacist and attending Dr. Hernandez. Safe environment maintained.
[2025-03-12] MEDS: ZOFRAN 4 MG IV (19:52)
[2025-03-12] MEDS: LR IV (20:23)
--- NOTE | 2025-03-12 20:37 | PTCARENOTE ---
Received pt from previous RN. Pt is AAOx3, drowsy @ times, anxious, slow/slurred speech. NSR/ sinus uriel on the monitor. On RA O2 sat 99%, lungs diminished. Pt c/o N/V, PRN Zofran given (see MAR). Pt assisted to the BR x1. Wound care provided (see
worklist). LR infusing @ 80 ml/hr. PRN Subutex given (see MAR), COWS score of 16. Pt asking for her ensure, ensure given. CHG bath and mouth care provided. Fiance at bedside. Call marquis in reach. Safe environment maintained.
[2025-03-13] VITALS (10 sets, daily range): BP systolic 129–162; BP diastolic 80–101; BMI 15.5
[2025-03-13] MEDS: SUBUTEX 2 MG SL ×2 (02:28→23:01)
[2025-03-13] MEDS: COMPAZINE 5 MG IV ×3 (02:29→22:37)
[2025-03-13] MEDS: ZOSYN 100 IV ×2 (05:16→12:19)
[2025-03-13] MEDS: ZANAFLEX 2 MG PO ×3 (06:00→22:36)
[2025-03-13] MEDS: SUBUTEX 16 MG SL (07:49)
[2025-03-13] MEDS: THIAMINE INJECTION 200 MG IV (07:49)
[2025-03-13] MEDS: NICODERM TRANSDERMAL 14 MG TRANSDERM (07:49)
[2025-03-13] MEDS: DAKIN'S SOLUTION 0.125% 1/4 STRENGTH 473 ML TOPICAL (07:50)
[2025-03-13] MEDS: LR 1000 IV ×2 (07:54→12:19)
[2025-03-13] MEDS: ZOFRAN 4 MG IV (07:56)
--- NOTE | 2025-03-13 08:09 | PTCARENOTE ---
Received patient from car shifter. patient is AAOx3, flat affect. She is on monitor, sinus rhythm. off continuous pulse ox and on room air. Patient is nauseous, has hiccups, requested zofran. She is using bed side commode for urine and stool.
asked that wound care be completed after subutex 'kicked in'. Will review orders, call marquis within reach.
--- NOTE | 2025-03-13 09:01 | W.PN.HOSP.TC ---
Addendum entered and electronically signed by Yessy Hernandez MD 03/15/25 12:43:
severe protein calorie malnutrition
Original Note:
Today's Communication/Plan
-
Medically stable for discharge to rehab
Assessment / Plan
Assessment / Plan
29-year-old female with IV drug abuse presented with increased drainage of bilateral thigh wounds she was previously seen at [facility] in [place] and underwent IND of bilateral elbows, bilateral lower leg wounds. Last hospitalized
at [facility] in January has a history of iron deficiency anemia with history of blood transfusions in the past. Last use of drugs was on 03/07/2025 afternoon. Reportedly she was also admitted to [facility]. Admitted to using 1
bundle of fentanyl and 2-3 bags of cocaine daily. Patient was transferred to ICU for withdrawal symptoms and started on Precedex.
awake alert and oriented
Nonhealing wounds with no discharge
Scars on both forearms as well as left leg-healing , left leg diamond ulcer no discharge
Cardiovascular system S1-S2 appreciated, no murmur
Abdomen soft and nontender
# Hiccups - Likely Opiate Hiccups
Add Thorazine one dose.
Use Compazine prn
# Opiate and xylazine withdrawal symptoms
Polysubstance abuse disorder and opiate use disorder
Urine drug screen positive for opiates, fentanyl, cocaine
Uses both fentanyl and cocaine last use was on 03/07/2025
UDS 03/13/25 similar- (Nursing found empty cocaine bags in her possession)
Opiate withdrawal-micro dosing protocol, as needed Zanaflex, clonidine, Subutex 16 mg and PRN
Precedex (for xylazine withdrawal) Stopped
Warm handoff consulted was in the room when I was there this am
# Nonhealing bilateral anterior thigh wounds
Infected wounds
X-ray without any osteomyelitis
Initial wounds secondary to xylazine injection
Surgery and wound care evaluation appreciated. No surgical interventions needed
Blood cultures Streptococcus and Staphylococcus aureus
Wound culture with Staph aureus, strep pyogenes and Pseudomonas, Enterococcus
Continue IV antibiotics Zosyn till she leaves per ID
Got Dalvance 03/13/25
Repeat blood cultures neg
No MAURICIO needed per ID since rpt Cx are neg
# Staph aureus and Strep bacteremia-secondary to above. Repeat cultures ordered from 03/09/2025-neg
# Severe microcytic anemia
Received PRBCs in the ER
CHARLOTTE-IV Iron
Needs GI and JACK OF ALL TRADES workup as outpatient pt aware.
# Acute kidney injury-Resolved.
# Hepatitis C-instructed to seek outpatient treatment. HIV neg . Pt aware re complications of untreated Hep c including cirrhosis, ESLD and cancer.
# underweight With a BMI of 14.9
# Active smoker-cessation counseling. Nicotine patch
# DVT prophylaxis-Lovenox
# Full code
mother [phone].
D/W RN at bed side
Patient was given Dalvance in case she left AMA. MIDLINE will need to be removed before she leaves.
Waiting for bed at [facility].
Transfer to tele
Part of this note was created using voice recognition system. Occasional wrong word or��sound alike� substitutions may have inadvertently occurred due to the inherent limitations of voice recognition software. If noted kindly bring it to my
attention for correction.
Anticipated Discharge: 24 - 48 hours
Subjective/Interval History
-
Date of Service: March 13, 2025
Objective Data
-
Labs:
Laboratory Results
03/13/25
06:00
WBC Pending
Hgb Pending
Hct Pending
Plt Count Pending
Sodium Pending
Potassium Pending
Chloride Pending
Carbon Dioxide Pending
BUN Pending
Creatinine Pending
Glucose Pending
Calcium Pending
Total Bilirubin Pending
AST Pending
ALT Pending
Alkaline Phosphatase Pending
Vital Signs:
Vital Signs
Temp Pulse Resp BP Pulse Ox
98.5 F 73 17 149/96 98
03/13/25 07:00 03/13/25 08:00 03/13/25 08:00 03/13/25 08:00 03/13/25 08:19
I&O
03/12/25 03/13/25 03/14/25
06:59 06:59 06:59
Intake Total 2630 / 2710 3371 / 3451 160 / 160
Output Total 201 / 201
Balance 2429 / 2509 3370 / 3450 160 / 160
--- NOTE | 2025-03-13 09:12 | W.PN.ID1 ---
Date of Service
Date of Service: March 13, 2025
Today's Communication
- completed 5 days of zosyn - stopped
- gave one time dose of dalbavancin 03/12 which completes course for nonsustained MSSA bacteremia
- midline was placed per cold press operator service, please note if she attempts to leave AMA I would urge removal prior to her leaving
Assessment / Plan
A&P
MSSA and S pyogenes Bacteremia
Wound Infection
Ongoing IVDU
GISELL - resolved
H/o untreated Hep C
Cachexia
H/o Noncompliance
- wound culture - MSSA, Pseudomonas, GAS, few Enterococcus
- blood cultures x2 in progress one set S aures and 1 set GAS
- if 03/09 blood cultures become positive then PICC line will need to be removed and replaced at a different site
- repeat blood cultures x2 from 03/09 no growth to date
- TTE without evidence of endocarditis - given that bacteremia has not persisted and S aureus was only in one set, no need for MAURICIO at this time
- wound care per wound long term care pharmacist
- completed 5 days of zosyn - stopped
- gave one time dose of dalbavancin 03/12 which completes course for nonsustained MSSA bacteremia
- midline was placed per cold press operator service, please note if she attempts to leave AMA I would urge removal prior to her leaving
- patient is at risk of reinfection/relapse/progression particularly is she continues to use IV drugs which she reports she is well aware of.
Chief Complaint
-: Bacteremia and Other (wound infection)
Subjective / Review of Systems
afebrile
bp stable
no complaints
Vital Signs / Physical Exam
Vital Signs
Vital Signs
Temp Pulse Resp BP Pulse Ox
98.5 F 73 17 149/96 98
03/13/25 07:00 03/13/25 08:00 03/13/25 08:00 03/13/25 08:00 03/13/25 08:19
Physical Exam
Constitutional: No Acute Distress and Chronically Ill
Cardiovascular: Regular Rate and S1/S2; Negative Murmur or Rub
Pulmonary: Clear and Symmetric; Negative Wheezes or Rales
Gastrointestinal: Soft, Non Tender, Non Distended and Normal Bowel Sounds
Skin: Warm and Dry; Negative Rash or Jaundice
Wound: Other (granulation tissue, no odor, no surrounding erythema, no significant drainage)
Objective Data
Lab Data
ESR 92 mm/hour (0-20) H 03/08/25 03:09
PT 15.7 Sec (11.4-14.6) H 03/09/25 13:02
INR 1.22 03/09/25 13:02
APTT 29.4 Sec (23.4-35.0) 03/09/25 13:02
Estimated Creat Clear 91 ml/min 03/12/25 05:02
Lactic Acid 1.2 mmol/L (0.7-2.0) 03/08/25 03:09
Total Bilirubin 0.8 mg/dl (0.2-1.3) 03/12/25 05:02
AST 24 U/L (14-36) 03/12/25 05:02
ALT < 10 U/L (0-35) 03/12/25 05:02
Alkaline Phosphatase 71 U/L (38-126) 03/12/25 05:02
C-Reactive Protein 31.70 mg/L (0.0-10.00) H 03/08/25 03:09
Most recent labs reviewed.
Micro Results:
03/09/25 13:02 Blood Culture - Preliminary
Blood/Venous No Growth in 72 hours- Final report to follow
03/09/25 13:02 Blood Culture - Preliminary
Blood/Venous No Growth in 72 hours- Final report to follow
03/08/25 04:13 Blood Culture - Final
Blood/Venous Streptococcus pyogenes
Gram Stain - Final
03/08/25 03:09 Blood Culture - Final
Blood/Venous S aureus-Methicillin Sensitive
Gram Stain - Final
03/08/25 03:38 Wound Culture - Final
Ulcer S aureus-Methicillin Sensitive
Pseudomonas aeruginosa
Enterococcus faecalis
Streptococcus pyogenes
Gram Stain - Final
[2025-03-13] MEDS: THORAZINE 25 MG IM (09:40)
--- NOTE | 2025-03-13 10:29 | CM ---
MD indicated pt ready for discharge to inpatient drug and alcohol rehab.
Spoke with Sharifa Singh she said she would follow up with pt about [facility].
Clinical faxed to [facility] [phone] ad [phone].
PLAN To [facility] if accepted and auth obtained
[2025-03-13] MEDS: NSS (PRESERVATIVE FREE) 10 ML IV (12:19)
[2025-03-13] MEDS: PROTONIX IV 40 MG IV (12:19)
[2025-03-13] MEDS: FERRLECIT 110 MG IV (13:23)
--- NOTE | 2025-03-13 14:45 | PTCARENOTE ---
patient continues to refuse lab draw. no blood return from midline.
[2025-03-13] MEDS: CATAPRES 0.1 MG PO (15:12)
--- NOTE | 2025-03-13 20:13 | PTCARENOTE ---
Received pt from previous RN. Pt is AAOx3, drowsy, anxious, flat. NSR/sinus uriel on the monitor. On RA, lungs diminished. Pt uses the BSC. LR infusing at 75 ml/hr. Fiance at bedside. Call marquis in reach. Safe environment maintained.
[2025-03-14] MEDS: LR 1000 IV (00:01)
[2025-03-14] MEDS: SUBUTEX 2 MG SL (03:31)
[2025-03-14] MEDS: IMODIUM 2 MG PO (03:31)
[2025-03-14 03:34] VITALS: BP 149/101
--- NOTE | 2025-03-14 04:46 | PTCARENOTE ---
Walked into pts room, vape sitting on bedside table. Informed pt she can not use a vape in the hospital, states it is her fiance's. Told her he needs to leave with it or security has to be called. Walked out to call security. Went back into pts
room, vape in hand using it. Security came in to see pt. Pt off monitor, pt wanting to leave AMA. STAGE TECHNICIAN notified.
--- NOTE | 2025-03-14 05:22 | PTCARENOTE ---
DETENTION SERGEANT up to see pt at bedside, went over AMA paperwork, paperwork signed. Midline taken out.
--- NOTE | 2025-03-14 05:22 | W.PN.UPDATE ---
Addendum entered and electronically signed by Yessy Hernandez MD 03/14/25 18:09:
Dictation- [id number]
Original Note:
Update Note
Progress Note Update
0505 Received a call from RN that pt wants to sign out AMA. Pt was caught with a vape pen in her possession and when she was told she cannot vape in the hospital, the pen was taken by security and pt then wanted to sign out AMA. PT well versed on
the consequences of leaving again medical advice including but not limited to relapse of drug use, risk of reinfection of her wounds, sepsis and even .
Explained to pt that by leaving AMA she run risk of losing a bed [facility]- pt states this isn't true and that she can 'just go there and get admitted.' I tried explaining that is why she has been staying in hospital. PT still wishes not
to stay. Issa at bedside prefers she stay but pt has already made up her mind. RN knows midline needs taken out prior to dc.
== END 2025-03-14 05:37 | disposition left against medical advice (07) | DRG 592 ==
LOC: ICU 05:29
PROVIDERS: Nurse Practitioner Family; Physician Assistant; ADMITTING PHYSICIAN Hospitalist; ATTENDING PHYSICIAN Hospitalist; CONSULT PHYSICIAN Internal Medicine; CONSULT PHYSICIAN Student in an Organized Health Care Education/Training Program; CONSULT PHYSICIAN Surgery; EMERGENCY PHYSICIAN Emergency Medicine
PROC: 30233N1 Transfusion of Nonautologous Red Blood Cells into Peripheral Vein, Percutaneous Approach (ICD-10-PCS; 2025-03-08)
DX: L97.129 Non-pressure chronic ulcer of left thigh with unspecified severity (principal); A41.01 Sepsis due to Methicillin susceptible Staphylococcus aureus; E43 Unspecified severe protein-calorie malnutrition; F11.23 Opioid dependence with withdrawal; L03.115 Cellulitis of right lower limb; L03.116 Cellulitis of left lower limb; N17.9 Acute kidney failure, unspecified; Z68.1 Body mass index [BMI] 19.9 or less, adult; L97.119 Non-pressure chronic ulcer of right thigh with unspecified severity; F17.210 Nicotine dependence, cigarettes, uncomplicated; D50.9 Iron deficiency anemia, unspecified; F19.10 Other psychoactive substance abuse, uncomplicated; B18.2 Chronic viral hepatitis C; Z91.199 Patient's noncompliance with other medical treatment and regimen due to unspecified reason
CPT/HCPCS: 71045; 73522; 74018; 80048; 80053; 80306; 80307; 81003; 81015; 82077; 82248; 82607; 82728; 82805; 82962; 83540; 83550; 83605; 83735; 84100; 84300; 84702; 85014; 85018; 85025; 85027; 85610; 85652; 85730; 86140; 86850; 86900; 86901; 86920; 87040; 87070; 87077; 87147; 87186; 87205; 87389; 92950; 93005; 93306; 96365; 97163; 97167; 97535; 99285; J0875; J2916; P9016

== ENCOUNTER 2025-03-19 06:47 | Inpatient (IN) | payer OTHER, SELFPAY ==
[2025-03-17 22:47] VITALS: BP 181/117
[2025-03-18] VITALS (21 sets, daily range): BP systolic 132–170; BP diastolic 87–119; BMI 15.6
[2025-03-18 00:46] LABS: ALT (SGPT) 13 U/L (0-35); AST (SGOT) 33 U/L (14-36); Albumin 4.6 g/dl (3.5-5.0); Alkaline Phosphatase 58 U/L (38-126); Blood Urea Nitrogen 10 mg/dl (7-17); Calcium 8.8 mg/dl (8.4-10.2); Carbon Dioxide 28 mmol/L (22-30); Chloride 108 mmol/L (98-107); Glucose 105 mg/dl (70-99); Hematocrit 31.7 % (37.0-47.0); Mean Corp Hgb Conc. 31.5 g/dL (33.0-37.0); Mean Corpuscular Volume 69.8 fL (81.0-99.0); Mean Platelet Volume 10.2 fL (7.4-10.4); Platelet Count 406 10^3/uL (130-400); Potassium 4.1 mmol/L (3.5-5.1); Red Blood Cell Count 4.54 10^6/uL (4.20-5.40); Red Cell Dist. Width 24.2 % (11.5-14.5); Sodium 145 mmol/L (135-145); Total Bilirubin 0.6 mg/dl (0.2-1.3); White Blood Cell Count 8.1 10^3/uL (4.8-10.8); eGFR > 60.00
[2025-03-18 00:57] LABS: Lactic Acid 1.2 mmol/L (0.7-2.0)
[2025-03-18 01:17] LABS: % Basophils 0.6 % (0-2); % Eosinophils 1.1 % (0-6); % Immature Granulocytes 0.2 % (0-0.5); % Lymphocytes 22.4 % (20.5-51.1); % Monocytes 7.8 % (1.7-9.3); % Neutrophils 67.9 % (42.2-75.2); Absolute Basophils 0.1 10^3/uL (0-0.2); Absolute Eosinophils 0.1 10^3/uL (0-0.7); Absolute Lymphocytes 1.8 10^3/uL (1.2-3.4); Absolute Monocytes 0.6 10^3/uL (0.1-0.6); Absolute Neutrophils 5.5 10^3/uL (1.4-6.5); Anisocytosis 1+; Microcytosis 3+; Nucleated Red Blood Cells % 0 %; Ovalocytes 1+
[2025-03-18 01:25] LABS: Normal RBC Morphology No
[2025-03-18] MEDS: ZOFRAN 4 MG IV ×2 (01:57→07:22)
--- NOTE | 2025-03-18 02:04 | ED.GENMED ---
History of Present Illness
General
Chief Complaint: Skin Problem
Source: patient and significant other
Time Seen by Provider: 03/17/25 23:15
History of Present Illness
History of Present Illness:
This is a 29-year-old male with longstanding history of IV drug abuse. Patient states that she was just here in the hospital left AGAINST MEDICAL ADVICE. The patient then went to [facility] and felt she was not getting enough care because
she started feeling feverish. Patient then left there to come back here. Patient states she wants care at this she is with her fianc�. Patient states that she is worried she is getting sicker. Patient does state that she did inject earlier today
into her left groin wound. She states she has been feeling feverish. No shortness of breath. She is starting to feel nauseous and achy. Patient states that she had a transthoracic echocardiogram that they wanted to do a MAURICIO but she left.
Past History
Past History
ED Past Medical History: Other (Hepatitis C, multiple skin grafts, debridements, substance abuse, IVDA)
Social History
Drug: IVDA
Phy Exam
Physical Exam
Physical Exam:
CONSTITUTIONAL Patient alert and oriented to person, place and time. Well-appearing. Vital signs reviewed.
HEAD atraumatic, normocephalic.
EYES eyelids normal to inspection, Extraocular muscles intact, Conjunctiva normal, Sclera normal.
NECK normal range of motion, Trachea midline, no jugular venous distention.
RESPIRATORY CHEST No respiratory distress noted, Chest expansion equal, Bilateral breath sounds clear.
CARDIOVASCULAR regular rate and rhythm, Heart sounds normal.
BACK normal inspection, no obvious deformities
UPPER EXTREMITY range of motion normal, Motor strength normal, no cyanosis, no edema. Healing skin grafts to the upper extremities
LOWER EXTREMITY range of motion normal, Motor strength normal, no cyanosis, no edema. Large ulcerated wounds noted to bilateral groin regions left greater than right. Exudative base but no surrounding redness.
NEURO Speech normal, No focal motor deficits, Kit coma scale 15, Memory normal, Cranial Nerves intact to screening exam.
SKIN skin warm, dry, and normal in color.
Course
Orders/Labs/Results
Orders:
Orders
03/17/25 23:45
Complete Blood Count/With Diff Urgent
Comprehensive Metabolic Panel Urgent
03/17/25 23:46
Lactic Acid Q4H
Comment: CANCEL 2nd LACTIC ACID IF 1st LACTIC ACID IS LESS THAN 2
Blood Culture Q30M
TISH Source: Blood/Venous
Specimen Description:
03/18/25 00:16
Blood Culture Q30M
TISH Source: Blood/Venous
Specimen Description:
03/18/25 01:55
Ondansetron Injectable [Zofran] 4 mg .ROUTE .STK-MED ONE
03/18/25 01:56
Ondansetron Injectable [Zofran] 4 mg IV NOW STA
03/18/25 02:01
Ondansetron Injectable [Zofran] 4 mg IV NOW STA
03/18/25 02:05
Buprenorphine HCl [Belbuca] 300 mcg BUCCAL NOW STA
Oxycodone Controlled Release [Oxycontin (Controlled Release)] 40 mg PO NOW STA
Abnormal Lab Results
03/18/25
00:08
Hgb 10.0 L g/dL
(12.0-16.0)
Hct 31.7 L %
(37.0-47.0)
MCV 69.8 L fL
(81.0-99.0)
MCH 22.0 L pg
(27.0-31.0)
MCHC 31.5 L g/dL
(33.0-37.0)
RDW 24.2 H %
(11.5-14.5)
Plt Count 406 H 10^3/uL
(130-400)
Chloride 108 H mmol/L
(98-107)
Creatinine 0.4 L mg/dL
(0.6-1.0)
Glucose 105 H mg/dl
(70-99)
Total Protein 9.0 H g/dl
(6.3-8.2)
03/18/25 00:08
03/18/25 00:08
Vital Signs
Initial and Last Documented VS:
Initial Vital Signs
Temp Pulse Resp BP Pulse Ox
98.9 F 146 20 181/117 100
03/17/25 22:47 03/17/25 22:47 03/17/25 22:47 03/17/25 22:47 03/17/25 22:47
Last Documented Vital Signs
Temp Pulse Resp BP Pulse Ox
98.6 F 109 18 153/108 99
03/18/25 01:59 03/18/25 01:59 03/18/25 01:59 03/18/25 01:59 03/18/25 01:59
MDM/Problems Addressed
MDM/Problems Addressed:
Open skin wounds, IV drug abuse, acute drug withdrawal
*Pulse Oximetry
Patient hypoxic: no
*Critical Care Note
Total Time (30-74mins, 75-104mins- exclusive of procedures): Not Applicable
Data Reviewed
Review of Other/Old Records Reveals: Progress Notes (Infectious disease note reviewed. Patient had a transthoracic echocardiogram) and Discharge Summary (Discharge summary from 3 days ago reviewed revealing that the patient left AMA. Patient was
given a dose of Dalvance)
Prescriptions/Medications Considered But Not Given:
Considered antibiotics but was given Dalvance
Patient Management
Discussion with other providers: Hospitalist
Escalation/DeEscalation of care consider admission/obs:
29-year-old female with longstanding substance abuse. Patient recently required Precedex due to opiate and xylazine withdrawal. Now back with feeling feverish and withdrawal symptoms. She recently was given antibiotics. White count better. Not
febrile here. However initiate microdosing treatment. Admit. Long discussion with the patient regarding the need to follow medical advice. Both the patient and her fianc� agree that that is what she wants to pursue.
ED Attending Note
-
Portions of this chart may have been created with voice recognition software.� Occasional wrong word or��sound alike� substitutions may have occurred due to the inherent limitations of voice recognition software.
Discharge Plan
Departure
Patient Disposition: Admit
Date of Disposition: 03/18/25
Time of Disposition: 02:08
Admit to: Telemetry
Presentation/result/management discussed w/ accepting MD/DO: Hospitalist
Discharge Problem:
Opiate withdrawal, Multiple wounds of skin
Prescriptions:
No Action
No Current Medications
0
Referrals:
NONE,* [Family Provider] -
Interventions
Interventions:
*Risk Screen - Suicide Last Done: 03/17/25 22:47
*General Assessment Last Done: 03/17/25 22:47
*Neglect/Abuse Screening Last Done: 03/17/25 22:47
*ED- Fall Risk Assessment Last Done: 03/17/25 22:47
*ED COVID-19 Vaccine History Last Done: 03/17/25 22:47
ED-Skin Assessment Last Done: 03/17/25 23:30
Discharge Date and Time
Print Language: AMHARIC
[2025-03-18] MEDS: OXYCONTIN (CONTROLLED RELEASE) 40 MG PO ×2 (02:31→07:22)
[2025-03-18] MEDS: BELBUCA 300 MCG BUCCAL ×5 (02:31→21:20)
--- NOTE | 2025-03-18 04:17 | HPS.HSE ---
Family Physician
-
Family Physician: * NONE
Chief Complaint
-
Withdrawal/leg wounds
History of Present Illness
This is a 29-year-old with past medical history of IV drug abuse and recurrent admissions for opioid withdrawal, multiple wounds of the skin and cellulitis of groin who was recently admitted for cellulitis with bloodstream infection secondary to IV
drug use and placed on withdrawal protocol with IV antibiotics return to the emergency department after leaving the hospital AMA pending placement at [facility].
After leaving yesterday the patient did return to the [facility] and was admitted there. She stated that she was there for about 1 day when she had continued nausea and vomiting and shakes so she said to leave there and come back to the emergency
department because she felt she would get better care here.
She was last admitted with withdrawal symptoms and wound infection. She had blood cultures x 1 which showed MSSA and polymicrobial findings. She was treated with 5-day course of Zosyn and received 1 course of dalbavancin to complete her course of
nonsustained MSSA bacteremia. Echo was negative for any vegetation.
On return to the ED, she is afebrile, blood pressure is 153/100 with a pulse of 100 and she was satting 98% on room air.
CBC was unremarkable. Electrolytes BUN and creatinine were all within the normal range.
Medical History
Past Medical History
Past Medical History: Reports Other
Additional Past Medical History:
Multiple Wounds related to IV drug use
Hepatitis C (no prior treatment)
Iron Deficiency Anemia
Past Surgical History: Reports Other
Additional Past Surgical History:
Wound Debridement
T&A
Social History
Tobacco: Smoker (Current every day smoker. / ppd.)
Alcohol: Occasional
Drug: Other (IV fentanyl - 1 bundle daily. IV cocaine - 5 bags daily. Last use 03/07 afternoon.)
Personal: Single
Family History
Family History: Not pertinent and Other (Father: Esophageal Cancer MGM: Breast Cancer)
Allergies / Home Medications
Allergies reflects when Allergies were last updated in [facility].
Home Medications with original date entered in [facility]
Allergy/Medication List:
Allergies
Allergy/AdvReac Type Severity Reaction Status Date / Time
No Known Allergies Allergy Verified 03/08/25 01:42
Home Medications
No Meds [No Current Medications] 03/08/25
Review of Systems
-
History Source: Patient
A 12 point ROS was completed and negative except as noted: Yes
Constitutional: Reports Fatigue; Denies Fever or Chills
EENT: Denies Sore Throat
Respiratory: Denies Cough or Trouble Breathing
Cardiac: Denies Chest Pain or Palpitations
Abdomen/GI: Denies Abdominal Pain, Nausea, Vomiting or Diarrhea
: Denies Dysuria or Frequency
Musculoskeletal: Denies Joint Pain or Edema
Skin: Reports Other (bilateral thigh/ groin wounds - bleeding / discharge)
Psych: Denies Depression or Anxiety
Physical Exam
Vital Signs
Vital Signs
Temp Pulse Resp BP Pulse Ox
98.6 F 109 18 153/108 99
03/18/25 01:59 03/18/25 01:59 03/18/25 01:59 03/18/25 01:59 03/18/25 01:59
Physical Exam
General: Other (29y F chronically ill-appearing.)
HEENT: NormoCephalic, Anicteric, Moist mucous membranes, Atraumatic and PERRLA
Respiratory: Clear; No Wheezes, Rales or Rhonchi
Cardiac: S1/S2 and Regular Rhythm; No Murmur
GI: Soft, Non Tender, Non Distended and Normal Bowel Sounds
Musculoskeletal: No Clubbing, No Cyanosis and No Edema
Skin: Other (L > R anterior thigh wounds / ulcerations with exposed fat, spotting / bleeding and areas of purulence. Mild surrounding erythema. Superficial ulcer over the lateral aspect of the L lower leg. Scarring L lower leg and bilateral
elbows.)
Neuro: AO x 3
Laboratory Results
-
03/18/25 00:08
03/18/25 00:08
Laboratory Results
Lactic Acid Cancelled 03/18/25 03:46
Total Bilirubin 0.6 mg/dl (0.2-1.3) 03/18/25 00:08
AST 33 U/L (14-36) 03/18/25 00:08
ALT 13 U/L (0-35) 03/18/25 00:08
Alkaline Phosphatase 58 U/L (38-126) 03/18/25 00:08
Data Reviewed
-
Lab Data: Labs Reviewed by me
Old Records: Reviewed
Impression/Plan
-
IMPRESSION:
29y F with PMH significant for IVDA, Hep C and anemia who presented to ED complaining of worsening bilateral thigh wounds on 03/08 with opioid withdrawal and xylazine withdrawal. Treated for withdrawal with withdrawal-micro dosing protocol,
precedex, clonidine and zanaflex with resolution of symptoms. Treated for wound and non-sustained bacteremia with Zosyn x 5 days and 1 dose of dalbavancine (completes course per ID). She left [facility] and went to [facility] as being planned by
[facility] but decided that she wasn't getting good care there, that she was still having symptoms of nausea and shakes. She injected her right groin wound once before coming to ED here to seek better care. She was having withdrawal symptoms in ED and
was started on withdrawal protocol.
IVDA - Opioid use d/o. Was on withdrawal taper prior to d/c and endorsed injection once since leaving [facility]. Mild withdrawal when I saw her as she was somnolent. She complained of nausea mostly.
- admit IMU observation
- opiod withdrawal microdosing protocol ordered
- supportive measures
- consider reassessment for inpatient rehab
Non-Healing Wounds Bilateral Anterior Thighs / Groin - completed tx with abx.
- no abx for now
- wound care consultation
- culture if febrile
Severe Microcytic Anemia - Stable Hgb since transfusion. Boderline iron deficiency
- oral iron supplementation as tolerated
Hep C - No prior treatment of Hep C positivity.
- Patient has been instructed to follow-up as an outpatient for Hep C treatment - but has yet to do so.
DVT Prophylaxis: SCDs (patient preference)
Code Status: Full
[2025-03-18] MEDS: LR 1000 IV (06:08)
[2025-03-18 06:20] LABS: Direct Bilirubin 0.2 mg/dl (0.0-0.4)
[2025-03-18 06:30] LABS: Alcohol None Detected
[2025-03-18] MEDS: TORADOL 10 MG IV ×2 (06:31→21:26)
--- NOTE | 2025-03-18 06:39 | PTCARENOTE ---
patient received from ED, AAOx3TESSA. NSR on monitor, afebrile, blood pressure as documented. No edema noted Lungs clear, pulse ox 97% on room air. Bilateral groin wounds, noted, left lower leg wound noted, #24 g in left wrist with IVF infusing
as ordered. Medicated with prn toradol given for headache. Plan of care discussed, call marquis within reach
[2025-03-18] MEDS: CATAPRES 0.1 MG PO (08:14)
--- NOTE | 2025-03-18 08:25 | W.PN.HOSP.TC ---
Today's Communication/Plan
-
see A/P
Assessment / Plan
Assessment / Plan
HPI: 29-year-old with past medical history of IV drug abuse and recurrent admissions for opioid withdrawal, multiple wounds of the skin and cellulitis of groin, who was recently admitted for cellulitis with bloodstream infection secondary to IV drug
use and placed on withdrawal protocol with IV antibiotics; return to the emergency department after leaving the hospital [facility] pending placement at [facility].
After leaving [facility], the patient did return to [facility] and was admitted there. She stated that she was there for about 1 day when she had continued nausea and vomiting and shakes so she left there and come back to the emergency department.
She was last admitted with withdrawal symptoms and wound infection. She had blood cultures x 1 which showed MSSA and polymicrobial findings. She was treated with 5-day course of Zosyn and received 1 course of dalbavancin to complete her course of
nonsustained MSSA bacteremia. Echo was negative for any vegetation.
A/P:
# IVDA - Opioid use d/o.
Was on withdrawal taper prior to d/c and endorsed injection once since leaving [facility].
admit IMU for opioid withdrawal microdosing protocol
supportive measures
CM CS for reassessment for inpatient rehab and [facility] CS
Pt was on Valium at in psych, pt requesting Valium for withdrawal treatment, will use short acting Serax with taper in place of PUSHER OPERATOR Valium
# Non-Healing Wounds Bilateral Anterior Thighs / Groin - completed tx with abx.
no abx for now
wound care consultation
culture if febrile
# Severe Microcytic Anemia - Stable Hgb since transfusion.
# Borderline iron deficiency
oral iron supplementation as tolerated
# Hep C - No prior treatment of Hep C positivity.
Patient has been instructed to follow-up as an outpatient for Hep C treatment - but has yet to do so.
DVT Prophylaxis: SCDs (patient preference)
Code Status: Full
DW RN
DW pt's fiance at bedside
total time spent 51 min
Anticipated Discharge: 24 - 48 hours
Subjective/Interval History
-
Date of Service: March 18, 2025
Objective Data
-
Labs:
Laboratory Results
03/18/25 03/18/25
00:08 05:47
WBC 8.1
Hgb 10.0 L
Hct 31.7 L
Plt Count 406 H
Sodium 145
Potassium 4.1
Chloride 108 H
Carbon Dioxide 28
BUN 10
Creatinine 0.4 L
Glucose 105 H
Calcium 8.8
Total Bilirubin 0.6 Cancelled
AST 33 Cancelled
ALT 13 Cancelled
Alkaline Phosphatase 58 Cancelled
Vital Signs:
Vital Signs
Temp Pulse Resp BP Pulse Ox
37.0 C 109 18 170/118 98
03/18/25 07:38 03/18/25 08:14 03/18/25 06:15 03/18/25 08:14 03/18/25 06:00
Review of Systems
-
History Source: Patient
Abdomen/GI: Denies Abdominal Pain, Nausea or Vomiting
Physical Exam
-
General: No Apparent Distress, Comfortable, Conversant, Cachectic and Other (poorly kempt)
HEENT: Normocephalic, Atraumatic and Moist Mucous Membranes
Respiratory: Clear to Auscultation and Non Labored Respirations; Negative Accessory Resp Muscle Use
Cardiac: Regular Rhythm and S1/S2
GI: Soft, Nontender, Nondistended and Normal Bowel Sounds
Musculoskeletal: No Clubbing, No Cyanosis and No Edema
Skin: Warm, Dry and Other (LLE wound, see wound care note)
Neuro: Awake and Alert
Psych: Calm and Intact Judgement/Insight
Data Reviewed
-
Labs: Labs Reviewed by me
[2025-03-18 09:10] LABS: Amphetamines Negative (Negative); Barbiturates Negative (Negative); Benzodiazepines Positive (Negative); Buprenorphine Positive (Negative); Cocaine Positive (Negative); Methamphetamines Negative (Negative); Opiates Positive (Negative)
[2025-03-18 09:11] LABS: Marijuana Negative (Negative); Methadone Negative (Negative); Phencyclidine Negative (Negative); Tricyclic Antidepressants Negative (Negative)
[2025-03-18 09:26] LABS: Fentanyl, Urine Positive (Negative)
[2025-03-18] MEDS: COMPAZINE 10 MG IV ×2 (11:16→21:27)
[2025-03-18] MEDS: DAKIN'S SOLUTION 0.125% 1/4 STRENGTH 473 ML TOPICAL (11:16)
[2025-03-18] MEDS: SERAX 10 MG PO (11:31)
[2025-03-18] MEDS: NSS 1000 IV (11:38)
--- NOTE | 2025-03-18 11:41 | WOUNDNOTE ---
MARISOL RN note: Patient admitted with Opiate withdrawal, groin ulcers related to IVDA of Xylazine.
See H&P for complete history. Lives with partner.
PMH: Hepatitis C, IVDA of Xylazine, Fentanyl and Cocaine. 1/2PPD smoker.
Wound Location and type/assessment: Patient known to service, admitted with: Full thickness ulcers b/l groins from IVDA. Wounds appear hand rug cleaner compared to last seen with less odor and R groin slightly smaller. L lateral leg with healing IVDA ulcer,
pink mixed with grier, no odor. Patient confirmed she had been to drug rehab but withdrawal symptoms were so bad, she had to come back to hospital. Patient ambulates self, sacrum is intact.
Appetite: Poor, states too nauseous, encouraged protein in diet.
Pressure redistribution devices in place: On air mattress but can be on Accumax.
Plan: All dressings changed. Will continue Dakin's WTD dressings both groin wounds. Honey gel, adaptic and dry dressing for L leg wound. Called [facility] for honey gel and asked nurse Abram to place in with wound supplies.
Updated nurse on the above. Will confirm wound care orders with hospitalist.
Updated care plan and will follow as needed.
Note to case management of equipment requested for discharge: VN if patient unable to care for wounds.
Recommend follow up at wound care center upon discharge.
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
[2025-03-18] MEDS: APRESOLINE 5 MG IV ×2 (14:18→23:04)
--- NOTE | 2025-03-18 15:20 | PTCARENOTE ---
Assumed care of pt from sales associate RN. AAOx3. Pt has periods of drowsiness/lethargy. RASS ranging from 0 to -2 throughout shift. NSR/ST on tele, HRs 80s-120s. SpO2 99% on room air. Remains on COWS protocol. Pt briefly started on Serax 10mg as
replacement for Valium she was placed on at [facility]. Serax discontinued after first dose due to increased level of sedation. Pt denies bringing in/using any outside substances during admission. centerless grinder tender preformed dressing changes of L
calf and b/l groin wounds. Wound care orders placed. Pt currently sleeping in bed & arousable to verbal stimuli. Assessment documented. Bed locked in lowest position, call marquis in reach.
[2025-03-18] MEDS: LOPRESSOR 5 MG IV (17:45)
--- NOTE | 2025-03-18 21:00 | PTCARENOTE ---
cigarette package examiner, SR-ST 70-low 100s, LH IV WNL- IVF infusing per work list. RA Sat 98%. POC discussed w/pt, full assessment on work list.
[2025-03-19] VITALS (25 sets, daily range): BP systolic 98–173; BP diastolic 60–134; PULSE 116; BMI 15.7
[2025-03-19] MEDS: BELBUCA 300 MCG BUCCAL (00:32)
[2025-03-19] MEDS: LOPRESSOR IV ×2 (00:32→10:26)
--- NOTE | 2025-03-19 00:40 | PTCARENOTE ---
attempted to give prn lopressor- IV hard to flush/pt reports pain. VAT to bedside to attempt new line.
[2025-03-19 01:05] LABS: Hematocrit 34.9 % (37.0-47.0); Hemoglobin 10.7 g/dL (12.0-16.0); Mean Corp Hgb Conc. 30.7 g/dL (33.0-37.0); Mean Corpuscular Hgb 21.6 pg (27.0-31.0); Mean Corpuscular Volume 70.5 fL (81.0-99.0); Mean Platelet Volume 9.7 fL (7.4-10.4); Platelet Count 411 10^3/uL (130-400); Red Blood Cell Count 4.95 10^6/uL (4.20-5.40); Red Cell Dist. Width 25.6 % (11.5-14.5); White Blood Cell Count 11.5 10^3/uL (4.8-10.8)
[2025-03-19 01:20] LABS: Blood Urea Nitrogen 11 mg/dl (7-17); Calcium 9.5 mg/dl (8.4-10.2); Carbon Dioxide 27 mmol/L (22-30); Chloride 104 mmol/L (98-107); Estimated Creatinine Clearance 91 ml/min; Glucose 130 mg/dl (70-99); Magnesium 1.6 mg/dl (1.6-2.3); Sodium 141 mmol/L (135-145); eGFR > 60.00
[2025-03-19] MEDS: CATAPRES 0.1 MG PO ×5 (01:30→23:55)
[2025-03-19] MEDS: LOPRESSOR 5 MG IV ×2 (01:30→18:50)
[2025-03-19] MEDS: ATARAX 50 MG PO ×2 (02:51→20:48)
--- NOTE | 2025-03-19 03:00 | PTCARENOTE ---
Yao ANALYSIS LEAD paged about pt HR fluctuating to 170s, sweating, tachypneic; COWS 25. requesting ANALYSIS LEAD to come to bedside to assess pt. -awaiting arrival.
[2025-03-19] MEDS: TORADOL 10 MG IV ×2 (03:16→21:20)
--- NOTE | 2025-03-19 03:25 | PTCARENOTE ---
Donavon OUTREACH REP to bedside- pt has improved HR low 100s, breathing appears more comfortable, restful. will monitor.
--- NOTE | 2025-03-19 08:19 | W.PN.HOSP.TC ---
Today's Communication/Plan
-
upgrade to ICU
consult cognos analyst
Assessment / Plan
Assessment / Plan
pt is a 29 year old female
IVDA - Opioid use d/o--with active withdrawal--spoke with Dr. Hernandez who had her last admission (was going through Xylazine withdrawal too)--started on microdosing protocol BUT zanaflex stopped, all standing opioids stopped---Was on withdrawal
taper prior to last d/c and endorsed injection once since leaving [facility]--was admitted to IMU for opioid withdrawal microdosing protocol--upgrade to ICU and consult cognos analyst--await CM input--[facility] pt requesting Valium for
withdrawal treatment, but now on short acting Serax with taper in place of TAIL EDGER Valium?--will discuss with pharmacy
Non-Healing Wounds Bilateral Anterior Thighs/Groin - completed tx with abx--cont wound care
Severe Microcytic Anemia with Borderline iron deficiency - Stable Hgb since transfusion last admission--oral iron supplementation as tolerated
Hep C positive -- No prior treatment of Hep C positivity-- Patient has been instructed to follow-up as an outpatient for Hep C treatment - but has yet to do so.
DVT Prophylaxis--SCDs (patient preference)
Code Status--Full
Total Critical Care Time 45 minutes. I was immediately available to the patient and staff. I personally examined, reviewed labs, diagnostic images/reports, interpretations, treatment plans, discussed patient care with other providers and family
or caregivers (if patient is unable to make decisions), entered orders as appropriate and documented the medical record.
Anticipated Discharge: > 48 hours
Subjective/Interval History
-
Date of Service: March 19, 2025
pt not feeling well
shaky, diaphoretic, tachycardic and hypertensive
Objective Data
-
Labs:
Laboratory Results
03/19/25
00:57
WBC 11.5 H
Hgb 10.7 L
Hct 34.9 L
Plt Count 411 H
Sodium 141
Potassium 4.0
Chloride 104
Carbon Dioxide 27
BUN 11
Creatinine 0.5 L
Glucose 130 H
Calcium 9.5
Vital Signs:
max temp for 24 hours
03/18/25
23:12
Temp 98.4 F
Vital Signs
Temp Pulse Resp BP Pulse Ox
98.1 F 122 19 164/112 99
03/19/25 07:42 03/19/25 06:00 03/19/25 06:00 03/19/25 06:00 03/19/25 06:00
Review of Systems
-
All other systems: Reviewed and negative
Cardiac: Reports Diaphoresis
Neuro: Reports Tremors
Physical Exam
-
General: Well Developed and Well Nourished; Negative Comfortable (appears uncomfortable)
HEENT: Normocephalic and Atraumatic; Negative Oxygen
Respiratory: Clear to Auscultation; Negative Wheezes, Rales or Crackles
Cardiac: Regular Rhythm, S1/S2, Tachycardic and Other (hypertensive too)
GI: Soft, Nontender, Nondistended and Normal Bowel Sounds
Musculoskeletal: No Clubbing, No Cyanosis and No Edema
Skin: Other (diaphoretic)
Neuro: Awake and Alert
[2025-03-19] MEDS: SUBUTEX 2 MG SL ×4 (08:45→21:21)
[2025-03-19] MEDS: DAKIN'S SOLUTION 0.125% 1/4 STRENGTH 473 ML TOPICAL (08:49)
--- NOTE | 2025-03-19 09:00 | PTCARENOTE ---
Rec'd pt at 0800 awake alert and oriented resting in bed. Affect is very flat. Admits to 7-8/10 generalized achiness. COWS score is a 12. Skin is sl sweaty. SARAH at 4mm. Sl observable tremor. ZARATE. Speech is clear. Respirs are unlabored on RA with
sats of 98%. Lungs are clear. Monitor ST to SR HR anywhere from 80-130's but does not stay sustained in the 120-130's. VS as documented. BP elevated, this am 155/115. + pulses. Abd is soft with + BS. Taking a few sips of liquids- but did not want
breakfast. Denies nausea. No vomiting noted. Incont of a saturated amt of urine - urine all under pt, on gown and on groin dressings. Complete CHG bath given. Linens changed. Bilat groin dressing changes completed as documented as well as L lateral
lower leg wound. Capped int intact r foot/ankle. Site wnl. Plan of care reviewed with pt. Call marquis in reach.
--- NOTE | 2025-03-19 09:20 | CON.INTV ---
Consultation
Consultation Request
Date/Time Consultation Requested: 03/19/2025
Date/Time Consultation Performed: 03/19/2025
Reason for Consultation: Severe opioid/drug withdrawal
Medical History
-
Chief Complaint: Drug withdrawal
History of Present Illness:
29-year-old female past medical history of IV drug use, hep C, reported fentanyl and cocaine, recent admission for withdrawal last week. She was found to have bilateral anterior thigh wounds which cultured positive for Pseudomonas, MSSA,
Enterococcus, as well as strep positive blood cultures. She completed 5 days of antibiotics during her last admission and was placed on buprenorphine micro induction taper. Unfortunately patient left AGAINST MEDICAL ADVICE last week, reportedly
she checked herself into [place] rehab for 1 day. However reportedly, her withdrawal symptoms were so severe she returned to the ED. Subjectively, patient reports using cocaine in between her previous hospital visit and this admission, UDS
supports this. As for now, patient is heavily withdrawing from presumed opioids and cocaine, she is currently on buprenorphine taper with supportive medications as needed. As she completed her antibiotics last admission, she has not been started
on any new antibiotics. She was transferred to the ICU for severe withdrawal this morning. COWS score overnight 25, COWS score this morning 12.
Past Medical History
Past Medical History: Other (IV drug use, hep C positive)
Social History
Drug: Cocaine, Narcotics and IVDA
Allergies / Home Medications
Allergies
Allergy/AdvReac Type Severity Reaction Status Date / Time
No Known Allergies Allergy Verified 03/17/25 22:54
Home Medications
�Medication �Instructions �Recorded �Confirmed �Last Taken �Type
No Meds [No Current Medications] 03/08/25 03/08/25 Unknown History
Review of Systems
-
Constitutional: Sleep Disturbance, Night Sweats and Chills
Respiratory: No Symptoms
Cardiac: Chest Pain and Diaphoresis
Abdomen/GI: Nausea, Vomiting and Diarrhea
: No Symptoms
Neuro: Headache
Vitals / Labs / Diagnostic Testing
Vital Signs
Temp Pulse Resp BP Pulse Ox
98.1 F 108 19 155/101 99
03/19/25 07:42 03/19/25 08:47 03/19/25 06:00 03/19/25 08:47 03/19/25 06:00
Lab Data
03/19/25 00:57
03/19/25 00:57
Microbiology
03/18/25 00:12 Blood/Venous Blood Culture - Preliminary
No Growth in 24 hours- Final report to follow
Diagnostic Testing:
Physical Exam
-
Cardiovascular: S1/S2 and Regular Rhythm
Respiratory: Clear
GI: Soft and Non Distended
Neurology: Awake, Alert, Oriented and AO x 3
Skin: Other (Bilateral dressing on anterior thigh.)
General: Sweats
Assessment
-
Assessment:
29 female past medical history of IV drug use, fentanyl cocaine, bilateral anterior thigh wounds with recent admission and [facility] for opiate withdrawal. Last admission she completed a 5-day course of antibiotics. Represented to ED 1 day after leaving
[facility] and upgraded to ICU for severe withdrawal symptoms.
Plan:
#Opiate use disorder
#Opiate withdrawal
#IV drug use
Reports daily use 1 bag of fentanyl and 4-5 bags cocaine daily. Reports using cocaine in between previous admission and current admission
UDS supports this, positive for cocaine, opiates, fentanyl, benzos, buprenorphine
Patient was initiated on buprenorphine micro induction taper with oral oxycodone and oral buprenorphine
As of this morning, she was only on a buprenorphine taper
Reinitiated oral oxycodone extended release. Oxy 20 every 12 hours, 4 doses total. As well as Oxy 10 every 4 hours as needed for severe pain
Added clonidine 0.1 mg every 6 hours for 8 doses total
Added tizanidine every 6 hours as needed for restlessness and agitation
Continue oral oxycodone and buprenorphine taper
Reportedly patient is able to tolerate oral meds without vomiting
Does report nausea vomiting, tachycardia, sweating, diarrhea, severe withdrawal symptoms
Upgraded from IMU to ICU this morning
COWS score overnight 25, COWS score this morning 12
Patient says she is willing to go to rehab 'depending how long this hospital stay takes'
florist manager consulted for withdrawal
Supportive measures with antiemetics, clonidine, hydralazine, hydroxyzine, Serax as needed
Continue monitoring QTc with daily EKG
Currently patient is withdrawing but stable, unsure of requirement for ICU level care. Believe she would be appropriate for IMU downgrade
#Nonhealing bilateral anterior thigh wounds
#Leukocytosis
Infected wounds likely secondary to IV drug use and xylazine, patient reports having debridement procedures previously at other facilities
During previous admission surgery evaluated and determined no acute surgical intervention
She completed a course of antibiotics during her last admission. Was given IV antibiotics however as she was going to leave [facility] infectious disease prescribed her a dose of Dalvance. Half-life extremely long of Dalvance, currently she still has a
therapeutic dose in her system
Currently she is not on any additional antibiotics
Continue with no additional antibiotics
White count increased from 8-11, trend with daily CBC
Previous admission blood cultures returned strep pyogenes, this admission blood cultures are no growth in 24 hours
Previous admission wound cultures returned strep pyogenes, Staph aureus, Pseudomonas, Enterococcus which were all previously covered for
#Poor IV access
Likely secondary to IV drug use
Required midline last admission
Currently patient only has an occluded IV line in her foot
IV team to place midline
#Headache
Patient reports headache which resolved with Toradol
As patient is tolerating oral meds, change Toradol to Motrin 400 mg every 8 hours as needed for moderate pain
#Low BMI
BMI 15.7
Patient is underweight, potentially malnourished
Inpatient nutrition consult
Diet: Regular
DVT prophylaxis Lovenox 30 subcu
CODE STATUS: full code
[2025-03-19] MEDS: TORADOL IV (10:25)
[2025-03-19] MEDS: FLUSH (NSS) 1 FLUSH IV ×3 (10:26→18:50)
--- NOTE | 2025-03-19 10:40 | PTCARENOTE ---
Addendum entered by Azalea Soto RN 03/19/25 13:25:
IV team to place midline
Original Note:
C/O a headache and generalized body aches. Went to give Toradol but IV in foot/ankle is occluded. IV team updated and will place PICC Line. Dr. Peoples updated and along with pharmacy and medical team- readjusting med regimen. Call marquis in reach.
[2025-03-19] MEDS: OXYCONTIN (CONTROLLED RELEASE) 20 MG PO ×2 (11:13→20:27)
--- NOTE | 2025-03-19 11:15 | PTCARENOTE ---
IV team here to do midline. Pt medicated with Oxycontin 20 mg po per MD order. Also medicated with Clonidine 0.1 mg po. COWS is a 12.
--- NOTE | 2025-03-19 12:00 | PTCARENOTE ---
Pt incont of a saturated amount of urine. When asked if she felt when she had to urinate-she wasn't sure. Affect remains very flat. Minimal tremor. Skin is less diaphoretic. BP remains elevated. HR goes between 88-120's. SR-ST.Skin care/perineal
care given. Bilateral groin dressings are D+I. Call marquis in reach.
--- NOTE | 2025-03-19 12:00 | PTCARENOTE ---
R upper arm midline placed by IV team. Site wnl.
--- NOTE | 2025-03-19 12:59 | PTCARENOTE ---
Sleeping post Oxycontin 20 mg.
--- NOTE | 2025-03-19 13:30 | PTCARENOTE ---
Worked with PT/OT - Ambulated. Of note PTs L hand - she is able to grasp but grasp is weaker on the L then the R and her L wrist has drop/limpness to it.-pt states it has been this way since the last time she was in the hospital.
[2025-03-19] MEDS: SUBUTEX SL (13:57)
--- NOTE | 2025-03-19 14:12 | PTCARENOTE ---
Resting/Dozing currently COWS is a 3. Subutex held per protocol
[2025-03-19] MEDS: MOTRIN 400 MG PO (14:49)
[2025-03-19] MEDS: ZANAFLEX 2 MG PO ×2 (14:49→20:48)
--- NOTE | 2025-03-19 14:50 | PTCARENOTE ---
Noticed HR was going up into the 125-130 range. Pt admits to 8/10 achiness and feeling a little more anxious now that she is awake. Brushed her teeth then given Motrin 400 mg po, Zanaflex 2 mg and her Subutex. No other changes. COWS is a 10. Call
marquis in reach
--- NOTE | 2025-03-19 15:02 | CM ---
Upgrade to ICU status. Multiple wounds. Discharge POC: BCares following. Patient unsure if she wants to return ti inpatient at [facility] after discharge. Will need wound care which [facility] will do.
[2025-03-19] MEDS: MAGNESIUM SULFATE 50 IV (16:19)
[2025-03-19] MEDS: ROXICODONE 10 MG PO ×2 (16:22→23:55)
--- NOTE | 2025-03-19 16:35 | PTCARENOTE ---
Awake- lying in bed. Stated the Motrin and the Zanaflex did not really help her discomfort. Asking for the Roxicodone- Medicated currently with Roxicodone 10 mg po for 7/10 achiness. No other changes in assessment. COWS when awake is around an 11.
Magnesium 2 gms IV hung via R upper arm midline. Did drink most of her Ensure. No other changes
--- NOTE | 2025-03-19 18:55 | PTCARENOTE ---
Was resting. Awake - COWS is an 8. Still admits to 7/10 achiness. Having intermittent hiccoughs which she said she gets when she is sick. OOB to use the bathroom then back in bed. HR running 130-140's ST despite being back in bed. Lopressor 5 mg IV
given at 1850- HR currently down to 104- ST. No other changes.
[2025-03-19] MEDS: THORAZINE 25 MG PO (19:30)
--- NOTE | 2025-03-19 19:30 | PTCARENOTE ---
Medicated with Thorazine 25 mg po for hiccoughs
--- NOTE | 2025-03-19 20:00 | PTCARENOTE ---
Patient received sitting up at the edge of the bed. She is without apparent signs of distress or discomfort. However, she c/o MORA 04/13. She is asking for Toradol. She is also asking for Valium for anxiety as well as a Nicotine patch. Items requested
from JESSICA Steve. Order for Toradol received. Atarax and Zanaflex given prn for pt c/o of anxiety. Scheduled Oxycontin given. Emotional support and encouragement given. See MAR for scheduled meds and prn pain meds given. Bilateral upper thigh dressings
and left lower leg dressing CDI. Patient is ST on CM, HR 110-130s while patient is sitting at the edge of the bed. She denies CP or SOB. See assessment manager charted on worklist flowsheet. Right arm Midline in place, flushes easily. BBS clear but
diminished t/o. Bed in low and locked position, call marquis within reach.
[2025-03-19] MEDS: NICODERM TRANSDERMAL 14 MG TRANSDERM (20:49)
--- NOTE | 2025-03-19 21:30 | PTCARENOTE ---
To bathroom with SBA, gait steady, tolerates fair. HR at high as 160s with activity. Moderate recovery period with HR returning to 110-120s.
[2025-03-19] MEDS: ZOFRAN 4 MG IV (23:55)
[2025-03-20] VITALS (9 sets, daily range): BP systolic 79–100; BP diastolic 45–71
--- NOTE | 2025-03-20 01:30 | PTCARENOTE ---
Patient restless. Asking for something to eat. Ensure provided as patient is on full liquid diet. Falls asleep easily when left undisturbed. SR 80s on CM.
[2025-03-20 05:43] LABS: Hematocrit 28.6 % (37.0-47.0); Hemoglobin 8.8 g/dL (12.0-16.0); Mean Corp Hgb Conc. 30.8 g/dL (33.0-37.0); Mean Corpuscular Hgb 21.7 pg (27.0-31.0); Mean Corpuscular Volume 70.4 fL (81.0-99.0); Platelet Count 325 10^3/uL (130-400); Red Blood Cell Count 4.06 10^6/uL (4.20-5.40); Red Cell Dist. Width 25.9 % (11.5-14.5); White Blood Cell Count 5.3 10^3/uL (4.8-10.8)
[2025-03-20] MEDS: CATAPRES PO ×2 (05:43→12:29)
[2025-03-20 05:45] LABS: ALT (SGPT) < 10 U/L (0-35); AST (SGOT) 15 U/L (14-36); Albumin 3.2 g/dl (3.5-5.0); Alkaline Phosphatase 52 U/L (38-126); Blood Urea Nitrogen 19 mg/dl (7-17); Calcium 8.3 mg/dl (8.4-10.2); Carbon Dioxide 28 mmol/L (22-30); Chloride 106 mmol/L (98-107); Creatine Phosphokinase < 20 U/L (30-135); Estimated Creatinine Clearance 92 ml/min; Glucose 89 mg/dl (70-99); Magnesium 2.1 mg/dl (1.6-2.3); Phosphorus 3.9 mg/dl (2.5-4.5); Potassium 3.5 mmol/L (3.5-5.1); Sodium 140 mmol/L (135-145); Total Bilirubin 0.4 mg/dl (0.2-1.3); Total Protein 6.5 g/dl (6.3-8.2); eGFR > 60.00
--- NOTE | 2025-03-20 06:59 | PTCARENOTE ---
Report given verbally to ALEYDA Garcia. Questions answered.
[2025-03-20] MEDS: OXYCONTIN (CONTROLLED RELEASE) 20 MG PO (07:50)
[2025-03-20] MEDS: SUBUTEX 4 MG SL ×2 (07:50→13:03)
[2025-03-20] MEDS: NICODERM TRANSDERMAL 14 MG TRANSDERM (07:50)
--- NOTE | 2025-03-20 10:25 | W.PN.HOSP.TC ---
Today's Communication/Plan
-
d/c if tolerates solid food
Assessment / Plan
Assessment / Plan
pt is a 29 year old female
IVDA - Opioid use d/o--active withdrawal resolved--apprec pharmacy and button clamper help--advancing diet--if tolerates can go home--need to go back to [facility]-
Non-Healing Wounds Bilateral Anterior Thighs/Groin - completed tx with abx--cont wound care
Severe Microcytic Anemia with Borderline iron deficiency - Stable Hgb since transfusion last admission--oral iron supplementation as tolerated
Hep C positive -- No prior treatment of Hep C positivity-- Patient has been instructed to follow-up as an outpatient for Hep C treatment - but has yet to do so.
wrist drop--3 weeks now --wrist splint--outpt ortho
DVT Prophylaxis--SCDs (patient preference)
Code Status--Full
Anticipated Discharge: Today
Subjective/Interval History
-
Date of Service: March 20, 2025
pt asking about left wrist drop
Objective Data
-
Labs:
Laboratory Results
03/20/25
05:00
WBC 5.3
Hgb 8.8 L
Hct 28.6 L
Plt Count 325 D
Sodium 140
Potassium 3.5
Chloride 106
Carbon Dioxide 28
BUN 19 H
Creatinine 0.6
Glucose 89
Calcium 8.3 L
Total Bilirubin 0.4
AST 15
ALT < 10
Alkaline Phosphatase 52
Vital Signs:
max temp for 24 hours
03/19/25
17:00
Temp 99.2 F
Vital Signs
Temp Pulse Resp BP Pulse Ox
97.0 F 64 14 95/71 99
03/20/25 08:00 03/20/25 05:43 03/20/25 04:56 03/20/25 05:43 03/20/25 05:00
I&O
03/19/25 03/20/25 03/21/25
06:59 06:59 06:59
Intake Total 700 / 700
Balance 700 / 700
Review of Systems
-
All other systems: Reviewed and negative
Musculoskeletal: Reports Other (wrist drop)
Physical Exam
-
General: Well Developed, Well Nourished and No Apparent Distress
HEENT: Normocephalic and Atraumatic
Respiratory: Clear to Auscultation; Negative Wheezes or Rhonchi
Cardiac: Regular Rhythm and S1/S2; Negative Murmur
GI: Soft, Nontender, Nondistended and Normal Bowel Sounds
Musculoskeletal: No Clubbing, No Cyanosis, No Edema and Other (left wrist drop)
[2025-03-20] MEDS: KCL 20 MEQ PO (11:15)
[2025-03-20] MEDS: DAKIN'S SOLUTION 0.125% 1/4 STRENGTH 1 ML TOPICAL (11:15)
--- NOTE | 2025-03-20 11:32 | CM ---
CM following re: discharge planning.
Reviewed pt's chart, met with pt.
Discharge order noted. Pt is aware and she stated her parents will transport home.
Pt stated that as of now she still did not decide to whether or not she will return back to [facility]. Pt stated she will go home and is she decides to go to [facility] she will go from home. pt stated she
has an appointment with [facility] on Saturday at 9:00 a.m. and they do have Suboxone program.
Pt stated she will need a script for Suboxone for remaining doses today and for tomorrow and on Saturday she will get Suboxone at [facility] RN is aware.
D/c plan: home with [facility] treatment and parents support. Parents to transport.
--- NOTE | 2025-03-20 13:49 | PTCARENOTE ---
Pt tolerated lunch. Discharged to home with boyfriend. Reviewed all discharge instructions including follow up, wound care, and meds. IV team d/c'd midline.
--- NOTE | 2025-03-20 13:50 | VATNOTE ---
Midline D/C'd per protocol. TCL retrieved was 13 cm. Pressure dressing applied.
--- NOTE | 2025-03-21 06:45 | W.DCSUMMARY ---
Discharge Summary
Discharge Data
Date of Admission: 03/19/25
Date of Discharge: 03/20/25
-
Pending Results: No
Hospital Course
Primary care physician : None
Principal Discharge diagnosis : IV drug abuse with active opioid withdrawal
Chronic Discharge diagnosis : Nonhealing wounds in the bilateral anterior thighs and groin, microcytic anemia with borderline iron deficiency, hepatitis C positive, left wrist drop
Hospital Course : Patient was a 29-year-old female who was hospitalized here and left AGAINST MEDICAL ADVICE on March 14, 2025 for IV drug abuse and multiple skin wounds. After she left the hospital she went to [place] and was admitted there. She
stated that she was there for 1 day when she had continued nausea and vomiting as well as shakes so she decided to leave there and come back to the emergency department. Patient did admit to injection since discharge from the hospital. Last
admission she had blood cultures which showed MSSA bacteremia and polymicrobial findings. She was treated with 5-day course of Zosyn and received 1 course of dalbavancin per infectious disease. Echocardiogram was done and negative for vegetation.
Patient presented with active withdrawal and was admitted.
Problem #1: IV drug abuse with active opioid withdrawal. Patient was admitted with active withdrawal and the micro dosing protocol was started. Unfortunately, opioids were stopped and Zanaflex were stopped and the patient went through worsening
withdrawal which required upgrade to the intensive care unit. Once oral narcotics were restarted and Zanaflex was restarted patient markedly improved. Nausea and vomiting stopped and the patient tolerated solid food. She has been cleared for
discharge with instructions to return to [facility] for continued detoxification. She has been instructed to stop injecting.
Problem #2: All other medical issues. These include Nonhealing wounds in the bilateral anterior thighs and groin, microcytic anemia with borderline iron deficiency, hepatitis C positive, left wrist drop. These medical issues were stable during her
hospitalization. Medications were continued as able. In regards to her left wrist drop, this was brought to my attention on the day of discharge. Patient states that she has a splint that she should be wearing and that this has been ongoing for 3
weeks. She is instructed to continue to wear her splint and to follow-up with orthopedics for any further treatment options.
Patient is stable for discharge back at this time. If there are any questions regarding this dictation or her hospital stay please not hesitate to call. Our office number is [phone].
Time for discharge 35 minutes.
Important imaging findings :
PERIPHERAL VASCULAR ULTRASOUND IMPRESSION:
No evidence of deep venous thrombosis bilaterally.
Discharge Plan
-
Patient Disposition: Home (Routine Discharge)
Discharge Diagnosis/Procedures: Acute opioid withdrawal, history of nonhealing wounds status post antibiotic completion last admission, microcytic anemia with borderline iron deficiency, hepatitis C positive, left wrist drop
Condition: Fair
Diet: As tolerated and Regular
Activity: As tolerated
Driving Restrictions: Not until seen by your Dr
Bathing Restrictions: None
Activity Restrictions/Additional Instructions:
Wound Care Instructions
B/L Groins: skin prep or apply Vaseline to skin surrounding wounds, Dakin's moistened gauze and dry dressing daily and prn drainage.
L lateral leg: clean with Dakin's, Honey gel, adaptic, abd pad and kerlix daily and prn drainage.
Follow up at wound care center call for an appointment.
Need to follow-up with orthopedics for your left wrist drop--- continue to wear your splint
You should also go back to [place] to continue your detox there
Referrals:
NONE,* [Family Provider] - in less than 1 week
Prescriptions:
New
Dakin's Solution 0.125 % Solution
1 applic topical DAILY Qty: 473 0RF
buprenorphine HCl 2 mg Tablet, Sublingual
4 mg sublingual BID 2 Days Qty: 8 0RF
Discharge Orders:
Discharge Patient (As Directed); Ordered 03/20/25
Ordered By: Jamaica Chauhan
Discharge Date and Time
Discharge Date/Time: 03/20/25 14:19
Print Language: GHANAIAN
== END 2025-03-20 14:19 | disposition home or self-care (01) | DRG 897 ==
LOC: ICU 06:47
PROVIDERS: Internal Medicine; ADMITTING PHYSICIAN Internal Medicine; ATTENDING PHYSICIAN Internal Medicine; CONSULT PHYSICIAN Internal Medicine Critical Care Medicine; EMERGENCY PHYSICIAN Emergency Medicine
DX: F11.23 Opioid dependence with withdrawal (principal); Z68.1 Body mass index [BMI] 19.9 or less, adult; B19.20 Unspecified viral hepatitis C without hepatic coma; D50.9 Iron deficiency anemia, unspecified; M21.332 Wrist drop, left wrist; S70.922D Unspecified superficial injury of left thigh, subsequent encounter; S70.921D Unspecified superficial injury of right thigh, subsequent encounter; Y99.9 Unspecified external cause status; R63.6 Underweight; F14.90 Cocaine use, unspecified, uncomplicated; F17.210 Nicotine dependence, cigarettes, uncomplicated; I16.0 Hypertensive urgency
CPT/HCPCS: 80048; 80053; 80306; 80307; 82077; 82248; 82550; 83605; 83735; 84100; 85025; 85027; 87040; 93005; 93970; 97163